=== PATIENT | female | born 1970 | race Caucasian/White ===

== ENCOUNTER 2024-10-08 09:44 | Outpatient (POV) | payer BC, SELFPAY ==
[2024-10-08 10:21] VITALS: BP 123/79; PULSE 72; RESP 16; O2SAT 98; BMI 38.7
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
== END 2024-10-08 23:59 | disposition home or self-care (01) ==
LOC: SC.PAIN 09:47
PROVIDERS: PCP Nurse Practitioner Family; Visit Provider Nurse Practitioner Family
DX: M54.50 Low back pain, unspecified (principal); M46.1 Sacroiliitis, not elsewhere classified; Z73.89 Other problems related to life management difficulty; Z79.899 Other long term (current) drug therapy
CPT/HCPCS: 99202; G0463

== ENCOUNTER 2024-11-27 11:59 | Outpatient (CLI) | payer BC, SELFPAY ==
--- NOTE | 2024-11-27 12:06 | XR_ITS ---
FINAL REPORT CLINICAL HISTORY: LB/HIP PAIN COMPARISON: None FINDINGS: SACROILIAC JOINTS SERIES Three views were obtained. There is no acute fracture or dislocation. The joint spaces appear normal. The visualized bony structures are well aligned. No soft tissue abnormality is seen. IMPRESSION: No acute bony abnormality. Reviewed, Interpreted and Dictated by Elo Cuevas MD Transcribed by Josselyn Castro Authenticated and [facility]
== END 2024-11-27 23:59 | disposition home or self-care (01) ==
LOC: RAD 12:01
PROVIDERS: PCP Nurse Practitioner Family; Visit Provider Nurse Practitioner Family
DX: M25.551 Pain in right hip (principal); M25.552 Pain in left hip
CPT/HCPCS: 72202

== ENCOUNTER 2024-12-19 10:31 | Outpatient (POV) | payer BC, SELFPAY ==
--- NOTE | 2024-12-19 10:48 | EXP.PAIN.SOA ---
[facility] Disclaimer: The information contained in this section may have been updated after the patient was seen, as this information can be updated by other users. Medical History (Updated 10/08/24 @ 10:54 by Lara Caba APRN) Shon's disease History of hypothyroidism History of diverticulosis Hx of osteoarthritis History of fibromyalgia Hx of acute hepatitis Hx of autoimmune disorder History of depression History of anxiety History of posttraumatic stress disorder (PTSD) Right knee meniscal tear Family history of patent foramen ovale Surgical History (Updated 08/22/24 @ 10:27 by Lowell Reynolds MA) History of hand surgery History of hysteroscopy Hx of total hysterectomy Hx of colonoscopy History of tenotomy Hx of cataract surgery Social History (Updated 10/08/24 @ 10:58 by Lara Caba APRN) Smoking Status: Never smoker alcohol intake: current alcohol intake frequency: a few times a month current occupational status: other Travel in the last 8 weeks: None Have you lived/traveled outside US in past 30 days?: No Contact w/someone who lives/traveled outside US past 30 days?: No Exposure to someone with infectious disease in past 14 days?: No Do you have a fever (greater than 100.4 F or 38 C)?: No Have you tested positive for COVID-19: No Exposed to someone with COVID-19 in past 14 days?: No Do you have a sore throat?: No Do you have a cough?: No Do you have any weakness?: No Do you have any diarrhea?: No Are you experiencing any unusual bleeding?: No Do you have any muscle aches/pain?: No Do you have any abdominal pain?: No Are you experiencing loss of taste or smell?: No PM Subjective & Objective Subjective Subjective:: Patient is a pleasant 54-year-old female who presents today for follow-up x-ray imaging of her SI joints. Today she rates her pain a 7 out of 10. She denies any new trauma or injury. Patient states she is still having the same chronic pain throughout her low back and hips that does go into her buttocks and upper thigh area. Patient has had this going on for over 2 years. Patient states the pain is severe and really interferes with her ability perform activities of daily living such as cooking or cleaning or even simple ambulation. Patient states the pain is constant and affects her sleeping. Patient does state that from her last appointment they denied her SI injections however she is not really sure why. Patient states she is continue to try conservative treatment with no additional improvement. Patient does state that she did get her disability approved and that she has not even been able to work due to this worsening pain. She does state that she is still very interested in proceeding forward with the injections. Her Sandeep has been reviewed and is appropriate. Review of Systems: General: No recent weight changes, no fever, no sleep disturbances Respiratory: No cough, no shortness of air, no recurring pulmonary infections Cardiovascular/peripheral vascular: No chest pain, no palpitations, no edema, no shortness of breath Gastrointestinal: No new onset incontinence, normal bowel movements reported Genitourinary: No new onset incontinence Musculoskeletal: Low back pain, bilateral hip pain Psychiatric: [Normal mood/affect] Neurological: [Denies weakness in extremities], [denies balance issues] Pain at rest (0-10 scale): 7 Objective Objective:: Physical Exam: General: Alert and oriented x3, no acute distress, pleasant and cooperative Lungs: Respirations even and unlabored, symmetrical chest expansion Eyes: PERRL Musculoskeletal: Flexion and extension of lumbar [spine] somewhat guarded secondary to pain, [antalgic gait noted] point tenderness along bilateral SIs with positive bilateral Adams's, Mandie's, Gaenslen's, compression and distraction exam Neurological: Speech clear, no gross sensory deficit Has patient had previous pain injection?: No Conservative treatment options previously tried: Home exercise plan Length of treatment: Longer than 12 weeks Meds Home Medications and Allergies Home Medications ?Medication ?Instructions ?Recorded ?Confirmed ?Type aspirin 81 mg tablet,delayed 81 mg PO DAILY 08/22/24 10/08/24 History release (Adult Low Dose Aspirin) atorvastatin 80 mg tablet 80 mg PO DAILY 08/22/24 10/08/24 History buspirone 30 mg tablet 30 mg PO BID 08/22/24 10/08/24 History chlordiazepoxide-clidinium 5 1 cap PO BID 08/22/24 10/08/24 History mg-2.5 mg capsule (Librax (with clidinium)) cholecalciferol (vitamin D3) 25 25 mcg PO DAILY 08/22/24 08/22/24 History mcg (1,000 unit) capsule estradiol 1 mg tablet 1 mg PO DAILY 08/22/24 10/08/24 History ezetimibe 10 mg tablet 10 mg PO DAILY 08/22/24 10/08/24 History fluticasone propionate 50 1 spray intranasal DAILY 08/22/24 10/08/24 History mcg/actuation nasal spray,suspension nitroglycerin 0.4 mg sublingual 0.4 mg sublingual Q5M PRN Chest 08/22/24 10/08/24 History tablet Pain omeprazole 20 mg capsule,delayed 20 mg PO DAILY #90 caps 08/22/24 10/08/24 Rx release oxybutynin chloride 10 mg mg PO 08/22/24 08/22/24 History tablet,extended release 24 hr ropinirole 1 mg tablet 1 mg PO DAILY 08/22/24 10/08/24 History sacrosidase 8,500 unit/mL oral 2 ml PO 6XD #360 mL 08/22/24 08/22/24 Rx solution (Sucraid) thyroid (pork) 60 mg tablet (MEDICAL MALPRACTICE PARALEGAL 120 mg PO DAILY 08/22/24 10/08/24 History Thyroid) ursodiol 500 mg tablet 500 mg PO DAILY 08/22/24 10/08/24 History New Prescriptions to Start Prescriptions: Allergies Allergy/AdvReac Type Severity Reaction Status Date / Time shellfish Allergy Severe Hives Uncoded 08/22/24 10:07 Assessment and Plan *Assessment and plan (1) Bilateral sacroiliitis: Status: Acute Category: Medical Code(s): M46.1 - Sacroiliitis, not elsewhere classified (2) Low back pain: Status: Acute Category: Medical Code(s): M54.50 - Low back pain, unspecified Plan I did review over with the patient regarding her x-ray imaging and we will proceed forward with an MRI of her pelvis/bilateral sacroiliac joints without contrast. Patient again today had extreme point tenderness along her SI joints and a positive bilateral Adams's, Mandie's, Gaenslen's, compression and distraction exam. I did discuss that I do believe she would still benefit from SI injections. Risk and benefits were discussed with patient and she would like to proceed forward with this plan of care. Patient has tried and failed oral medications, heat and ice, topicals, physical therapy and chiropractor therapy as well as continued at home stretching exercise for longer than 12 weeks that was physician guided with no additional relief. Patient will be submitted for bilateral SI injections. I will also order the patient a compounded cream and send in a prescription of baclofen 5 mg 3 times daily with a 2-week supply. Patient will return to clinic for her SI injections Patient has been instructed to contact the clinic with any concerns before the next appointment. Dr. Baker has reviewed this note and agrees with this plan of care. This note was dictated using voice recognition software and make contain errors or omissions. All injections are used with Lidocaine, Bupivacaine and Depo Medrol. Occasionally urine drug screen is needed to verify patient's compliance with our office pain contract. This is ordered based off specific treatments related to chronic pain with the potential to abuse certain medications.
[2024-12-19 15:34] VITALS: BP 127/69; PULSE 77; RESP 14; O2SAT 96; BMI 38.4
== END 2024-12-19 23:59 | disposition home or self-care (01) ==
PROVIDERS: PCP Nurse Practitioner Family; Visit Provider Nurse Practitioner Family
DX: M46.1 Sacroiliitis, not elsewhere classified (principal); M54.50 Low back pain, unspecified; Z73.89 Other problems related to life management difficulty
CPT/HCPCS: 99212; G0463

== ENCOUNTER 2025-01-14 13:26 | Outpatient (POV) | payer BC, SELFPAY ==
--- NOTE | 2025-01-14 13:36 | EXP.PAIN.SOA ---
[facility] Disclaimer: The information contained in this section may have been updated after the patient was seen, as this information can be updated by other users. Medical History Shon's disease History of hypothyroidism History of diverticulosis Hx of osteoarthritis History of fibromyalgia Hx of acute hepatitis Hx of autoimmune disorder History of depression History of anxiety History of posttraumatic stress disorder (PTSD) Right knee meniscal tear Family history of patent foramen ovale Surgical History History of hand surgery History of hysteroscopy Hx of total hysterectomy Hx of colonoscopy History of tenotomy Hx of cataract surgery Social History Smoking Status: Never smoker alcohol intake: current alcohol intake frequency: a few times a month current occupational status: other Travel in the last 8 weeks: None PM Subjective & Objective Subjective Subjective:: Patient is a pleasant 54-year-old female who presents today for insurance denial of bilateral SI injections. Today she rates her pain a 7 out of 10. She denies any new falls or injuries. Patient states she still continues to have chronic pain throughout her low back and bilateral hips and describes it as the severe pain that is constant and is still affecting her ability to sleep as well as cooking and cleaning. At her last visit we did order the patient compounded cream and baclofen 5 mg 3 times daily. She states that the compounded cream was sessile however she has not used it on a consistent basis because it is hard to apply herself. Patient states she did not notice big improvements with the baclofen 5 mg however denies any side effects. Her Sandeep has been reviewed and is appropriate. Review of Systems: General: No recent weight changes, no fever, no sleep disturbances Respiratory: No cough, no shortness of air, no recurring pulmonary infections Cardiovascular/peripheral vascular: No chest pain, no palpitations, no edema, no shortness of breath Gastrointestinal: No new onset incontinence, normal bowel movements reported Genitourinary: No new onset incontinence Musculoskeletal: Low back pain, bilateral hip pain Psychiatric: [Normal mood/affect] Neurological: [Denies weakness in extremities], [denies balance issues] Pain at rest (0-10 scale): 7 Objective Objective:: Physical Exam: General: Alert and oriented x3, no acute distress, pleasant and cooperative Lungs: Respirations even and unlabored, symmetrical chest expansion Eyes: PERRL Musculoskeletal: Flexion and extension of lumbar [spine] somewhat guarded secondary to pain, [antalgic gait noted] point tenderness along bilateral SIs with positive bilateral Adams's, Mandie's, Gaenslen's, compression and distraction exam Neurological: Speech clear, no gross sensory deficit Has patient had previous pain injection?: No Conservative treatment options previously tried: Home exercise plan Length of treatment: Longer than 12 weeks Meds Home Medications and Allergies Home Medications ?Medication ?Instructions ?Recorded ?Confirmed ?Type aspirin 81 mg tablet,delayed 81 mg PO DAILY 08/22/24 12/19/24 History release (Adult Low Dose Aspirin) atorvastatin 80 mg tablet 80 mg PO DAILY 08/22/24 12/19/24 History buspirone 30 mg tablet 30 mg PO BID 08/22/24 12/19/24 History chlordiazepoxide-clidinium 5 1 cap PO BID 08/22/24 12/19/24 History mg-2.5 mg capsule (Librax (with clidinium)) cholecalciferol (vitamin D3) 25 25 mcg PO DAILY 08/22/24 12/19/24 History mcg (1,000 unit) capsule estradiol 1 mg tablet 1 mg PO DAILY 08/22/24 12/19/24 History ezetimibe 10 mg tablet 10 mg PO DAILY 08/22/24 12/19/24 History fluticasone propionate 50 1 spray intranasal DAILY 08/22/24 12/19/24 History mcg/actuation nasal spray,suspension nitroglycerin 0.4 mg sublingual 0.4 mg sublingual Q5M PRN Chest 08/22/24 12/19/24 History tablet Pain omeprazole 20 mg capsule,delayed 20 mg PO DAILY #90 caps 08/22/24 12/19/24 Rx release oxybutynin chloride 10 mg 10 mg PO DIRECTED 08/22/24 12/19/24 History tablet,extended release 24 hr ropinirole 1 mg tablet 1 mg PO DAILY 08/22/24 12/19/24 History sacrosidase 8,500 unit/mL oral 2 ml PO 6XD #360 mL 08/22/24 12/19/24 Rx solution (Sucraid) thyroid (pork) 60 mg tablet (LOGGING TRACTOR OPERATOR 120 mg PO DAILY 08/22/24 12/19/24 History Thyroid) ursodiol 500 mg tablet 500 mg PO DAILY 08/22/24 12/19/24 History baclofen 5 mg tablet 5 mg PO TID #42 tabs 12/19/24 Rx evolocumab 140 mg/mL subcutaneous 140 mg SQ DIRECTED Cholesterol 12/20/24 12/20/24 History syringe (Repatha Syringe) New Prescriptions to Start Prescriptions: Allergies Allergy/AdvReac Type Severity Reaction Status Date / Time shellfish Allergy Severe Hives Uncoded 08/22/24 10:07 Assessment and Plan *Assessment and plan (1) Bilateral sacroiliitis: Status: Acute Category: Medical Code(s): M46.1 - Sacroiliitis, not elsewhere classified (2) Low back pain: Status: Acute Category: Medical Code(s): M54.50 - Low back pain, unspecified Plan Patient is experiencing worsening pain along the low back and bilateral hips. They did have limited range of motion of the lumbar spine along with point tenderness along bilateral SI joints and a positive bilateral Adams's, Mandie's, Gaenslen's, compression and distraction exam. I did discuss with the patient that I do believe they would benefit from bilateral SI injections. Risk and benefits were discussed with the patient and they would like to proceed forward with this option. Patient has tried and failed conservative therapy including physical therapy, chiropractor therapy and continued at home stretching exercise for longer than 12 weeks that was physician guided. Patient was counseled that if she does get significant relief with these injections we will plan on repeating it with the possibility of her being a surgical candidate for SI fusion in future. Patient acknowledges understanding and agrees with plan of care. I will also send in a refill of the baclofen and increase it to 10 mg 3 times daily as needed. Patient will be planned on doing less than 1 mL of solution into the joint spaces. Patient will be scheduled for bilateral SI injections under fluoroscopy. Patient has been instructed to contact the clinic with any concerns before the next appointment. Dr. Baker has reviewed this note and agrees with this plan of care. This note was dictated using voice recognition software and make contain errors or omissions. All injections are used with Lidocaine or Bupivacaine and Depo Medrol. Patient has been instructed to contact the clinic with any concerns before the next appointment. Dr. Baker has reviewed this note and agrees with this plan of care. This note was dictated using voice recognition software and make contain errors or omissions. All injections are used with Lidocaine, Bupivacaine and Depo Medrol. Occasionally urine drug screen is needed to verify patient's compliance with our office pain contract. This is ordered based off specific treatments related to chronic pain with the potential to abuse certain medications.
[2025-01-14 14:11] VITALS: BP 122/77; PULSE 71; RESP 14; O2SAT 95; BMI 38.9
== END 2025-01-14 23:59 | disposition home or self-care (01) ==
PROVIDERS: PCP Nurse Practitioner Family; Visit Provider Nurse Practitioner Family
DX: M46.1 Sacroiliitis, not elsewhere classified (principal); M54.50 Low back pain, unspecified; Z73.89 Other problems related to life management difficulty
CPT/HCPCS: 99212; G0463

== ENCOUNTER 2025-02-05 10:01 | Day surgery (SDC) | payer BC, MEDICARE, SELFPAY ==
[2025-02-05 10:13] VITALS: BP 114/76; PULSE 79; RESP 16; TEMP 36.9; O2SAT 96; BMI 39.3
[2025-02-05 10:31] VITALS: BP 123/64; PULSE 80; RESP 18; O2SAT 95
[2025-02-05] MEDS: LIDOCAINE 1% 5ML PF VIAL 5 ML (10:31)
[2025-02-05] MEDS: BUPIVACAINE 0.25% 10ML INJ 25 MG IJ (10:31)
[2025-02-05] MEDS: methylPREDNISolone ACETATE 80MG/ML VIAL 80 MG (10:31)
[2025-02-05 10:33] VITALS: BP 123/64; PULSE 80; RESP 18; O2SAT 95
[2025-02-05 10:40] VITALS: BP 146/77; PULSE 69; RESP 16; O2SAT 95
--- NOTE | 2025-02-05 10:45 | P.PCN_ITS ---
Procedure Date: 02/05/25 Time: 10:22 Anesthesiologist:: Rm Pena CRNA Complications:: None Pre-procedure Diagnosis:: Bilateral sacroiliitis Post-procedure Diagnosis:: Same Indications for Procedure:: Patient is a very pleasant 54-year-old female comes our clinic today for bilateral sacroiliac joint injection of cortisone and local anesthetic. Patient describes low lumbar back pain off the midline bilaterally. Bilateral posterior hip pain. Difficulty transitioning from sitting to standing. Difficulty with ambulation. She rates her pain 7/10. Procedure Details:: Procedure: Bilateral sacroiliac joint injections under fluoroscopy Informed consent was obtained and the risks and benefits of the procedure were explained to the patient.~ The patient was taken to the procedure room and noninvasive monitors were placed including a noninvasive blood pressure cuff and pulse oximeter.~ The patient was placed prone on the procedure table. Both hips were cleansed using Betadine as a cleansing solution. C-arm fluoroscopy was used to view the right sacroiliac joint.~ The skin and subcutaneous tissues were anesthetized using lidocaine 1.5% and a 25-gauge needle.~ After this, a 22-gauge spinal needle was inserted under fluoroscopic guidance into the inferior aspect of the right sacroiliac joint.~ Omnipaque dye was injected and good spread was seen throughout the joint.~ After this, approximately 5 mL of bupivacaine, 0.25% and Depo-Medrol, 40 mg was incrementally injected into the right sacroiliac joint. We then moved to the left sacroiliac joint.~ The skin and subcutaneous tissues were anesthetized using lidocaine 1.5% and a 25-gauge needle.~ After this, a 22- gauge spinal needle was inserted under fluoroscopic guidance into the inferior aspect of the left sacroiliac joint.~ Omnipaque dye was injected and good spread was seen throughout the joint. After this, approximately 5 mL of bupivacaine, 0.25% and Depo-Medrol, 40 mg was incrementally injected into the left sacroiliac joint.~ The patient tolerated the procedure well with no complications. The patient was observed in the Pain Clinic and then was discharged home neurologically intact. Plan and Disposition:: Patient was discharged without incident.
== END 2025-02-05 10:40 | disposition home or self-care (01) ==
LOC: SC.PAINP 10:04
PROVIDERS: PCP Nurse Practitioner Family; Visit Provider Nurse Anesthetist, Certified Registered
DX: M46.1 Sacroiliitis, not elsewhere classified (principal)
CPT/HCPCS: 27096; G0260; J1010

== ENCOUNTER 2025-02-20 14:15 | Outpatient (CLI) | payer BC, MEDICARE, SELFPAY ==
[2025-02-20 14:49] LABS: Basophils # 0.1 K/mm3 (0-0.2); Basophils % 1.4 % (0.1-2.0); Eosinophils # 0.2 K/mm3 (0.0-0.4); Eosinophils % 1.5 % (0.1-12.0); Hematocrit 41.1 % (37.0-47.0); Hemoglobin 13.1 g/dL (12.2-16.2); Lymphocytes % 20.4 % (10-50); Mean Corpuscular HGB Conc 31.9 g/dL (31.8-35.4); Mean Corpuscular Hemoglobin 28.9 pg (27.0-31.2); Mean Corpuscular Volume 90.5 fl (81-99); Mean Platelet Volume 8.4 fl (7.4-10.4); Monocytes # 0.7 K/mm3 (0.1-1.0); Monocytes % 7.4 % (1.7-9.3); Neutrophils # 6.8 K/mm3 (1.8-7.8); Neutrophils % 68.8 % (37.0-80.0); Nucleated Red Blood Cells # 0 10^3/uL; Nucleated Red Blood Cells % 0 %; Platelet Count 395 K/mm3 (142-424); Red Blood Count 4.54 M/mm3 (4.20-5.40); Red Cell Distribution Width 14.2 % (11.5-17.5); White Blood Count 9.9 K/mm3 (4.8-10.8)
--- NOTE | 2025-02-20 15:08 | EXP.PAIN.SOA ---
[facility] Disclaimer: The information contained in this section may have been updated after the patient was seen, as this information can be updated by other users. Medical History (Updated 02/20/25 @ 15:11 by Lara Caba APRN) Shon's disease History of hypothyroidism History of diverticulosis Hx of osteoarthritis History of fibromyalgia Hx of acute hepatitis Hx of autoimmune disorder History of depression History of anxiety History of posttraumatic stress disorder (PTSD) Right knee meniscal tear Family history of patent foramen ovale Surgical History History of hand surgery History of hysteroscopy Hx of total hysterectomy Hx of colonoscopy History of tenotomy Hx of cataract surgery Social History Smoking Status: Never smoker alcohol intake: current alcohol intake frequency: a few times a month current occupational status: other Travel in the last 8 weeks: None PM Subjective & Objective Subjective Subjective:: Patient is a pleasant 54-year-old female who presents today for follow-up of bilateral SI injections on 02/05/2025. Today she rates her pain a 7 out of 10. Patient does state that she had approximately 75 to 80% improvement lasting 24 hours with those injections. Patient does feel like she is still having pain all across her low back and hips. Patient denies any new falls or injuries. Patient does state certain movements are worse such as walking, laying for too long or lifting. Patient states that it can be very positional. She does state the pain interferes with her ability perform activities of daily living such as cooking and cleaning. Patient continues to try conservative treatments including oral medications, heat and ice, topicals, at home stretching exercise for longer than 12 weeks. Patient has also had physical therapy and chiropractor therapy. Patient is prescribed baclofen 10 mg 3 times daily from our office. Patient states that the increased dosage does seem to help but it does cause increased fatigue so she is only been taking it at night. Patient is also managed with compounded cream that she states she is trying to do more frequently and that she has been having her apply this. Sandeep has been reviewed and is appropriate. Review of Systems: General: No recent weight changes, no fever, no sleep disturbances Respiratory: No cough, no shortness of air, no recurring pulmonary infections Cardiovascular/peripheral vascular: No chest pain, no palpitations, no edema, no shortness of breath Gastrointestinal: No new onset incontinence, normal bowel movements reported Genitourinary: No new onset incontinence Musculoskeletal: Low back pain, hip pain Psychiatric: [Normal mood/affect] Neurological: [Denies weakness in extremities], [denies balance issues] Pain at rest (0-10 scale): 7 Objective Objective:: Physical Exam: General: Alert and oriented x3, no acute distress, pleasant and cooperative Lungs: Respirations even and unlabored, symmetrical chest expansion Eyes: PERRL Musculoskeletal: Flexion and extension of lumbar [spine] somewhat guarded secondary to pain, [antalgic gait noted] positive Kemps test Neurological: Speech clear, no gross sensory deficit Has patient had previous pain injection?: Yes Percent improvement in pain since last injection: 75 to 80% Conservative treatment options previously tried: Home exercise plan Length of treatment: Longer than 12 weeks Meds Home Medications and Allergies Home Medications ?Medication ?Instructions ?Recorded ?Confirmed ?Type aspirin 81 mg tablet,delayed 81 mg PO DAILY 08/22/24 02/05/25 History release (Adult Low Dose Aspirin) atorvastatin 80 mg tablet 80 mg PO DAILY 08/22/24 02/05/25 History buspirone 30 mg tablet 30 mg PO BID 08/22/24 02/05/25 History chlordiazepoxide-clidinium 5 1 cap PO BID 08/22/24 02/05/25 History mg-2.5 mg capsule (Librax (with clidinium)) cholecalciferol (vitamin D3) 25 25 mcg PO DAILY 08/22/24 02/05/25 History mcg (1,000 unit) capsule estradiol 1 mg tablet 1 mg PO DAILY 08/22/24 02/05/25 History ezetimibe 10 mg tablet 10 mg PO DAILY 08/22/24 02/05/25 History fluticasone propionate 50 1 spray intranasal DAILY 08/22/24 02/05/25 History mcg/actuation nasal spray,suspension nitroglycerin 0.4 mg sublingual 0.4 mg sublingual Q5M PRN Chest 08/22/24 02/05/25 History tablet Pain omeprazole 20 mg capsule,delayed 20 mg PO DAILY #90 caps 08/22/24 02/05/25 Rx release oxybutynin chloride 10 mg 10 mg PO DIRECTED 08/22/24 02/05/25 History tablet,extended release 24 hr ropinirole 1 mg tablet 1 mg PO DAILY 08/22/24 02/05/25 History sacrosidase 8,500 unit/mL oral 2 ml PO 6XD #360 mL 08/22/24 02/05/25 Rx solution (Sucraid) thyroid (pork) 60 mg tablet (MEDICAL TECHNOLOGIST 120 mg PO DAILY 08/22/24 02/05/25 History Thyroid) ursodiol 500 mg tablet 500 mg PO DAILY 08/22/24 02/05/25 History baclofen 5 mg tablet 5 mg PO TID #42 tabs 12/19/24 02/05/25 Rx evolocumab 140 mg/mL subcutaneous 140 mg SQ DIRECTED Cholesterol 12/20/24 02/05/25 History syringe (Repatha Syringe) baclofen 10 mg tablet 10 mg PO TID #42 tabs 01/14/25 02/05/25 Rx New Prescriptions to Start Prescriptions: Allergies Allergy/AdvReac Type Severity Reaction Status Date / Time shellfish Allergy Severe Hives Uncoded 08/22/24 10:07 Assessment and Plan *Assessment and plan (1) Low back pain: Status: Acute Category: Medical Code(s): M54.50 - Low back pain, unspecified (2) Bilateral hip pain: Status: Acute Category: Medical Code(s): M25.551 - Pain in right hip; M25.552 - Pain in left hip Plan Patient is experiencing significant pain in her low back that is worse with bending, twisting or lifting. Patient did have limited range of motion of her lumbar spine with a positive Kemps test during today's visit. I did discuss with the patient that I do believe she would benefit from a lumbar medial branch block. Risk and benefits were discussed with the patient and she would like to proceed forward with this plan of care. Patient has tried and failed conservative therapy including oral medications, heat and ice, topicals, at home stretching exercise for longer than 12 weeks. Patient has been experiencing chronic low back pain for longer than 6 months. Patient was counseled that if she does get significant relief with her first lumbar medial branch block that we will plan on repeating it with the plan to progress forward to a lumbar RFA at a later date. Patient agrees with this plan of care. Patient will be scheduled for her first diagnostic lumbar medial branch block bilaterally L4-L5 and L5-S1 under fluoroscopy. Patient was not as tender over her SI joints during today's visit. I will also send in a new muscle relaxer of 500 mg twice daily of methocarbamol. Patient was counseled that this medication typically does not cause increased fatigue however I will order the tablets in case she does still have to break them in half. Patient was counseled to take this on a day that she does not have to go anywhere or drive to see if it does cause any increased fatigue or drowsiness. Patient agrees with this plan of care. I will also order the patient imaging of her low back due to the chronic pain that has been present. I will order x-ray imaging and proceed forward with an MRI without contrast. Patient does have a implanted [employer] medical amplatzer PFO occluder that has to be done with certain amplitudes of frequency. Patient states she has had advanced imaging done at [facility] with no problems related to this device. We will plan on submitting for the advanced imaging at this location due to this fact. Patient has been instructed to contact the clinic with any concerns before the next appointment. Dr. Baker has reviewed this note and agrees with this plan of care. This note was dictated using voice recognition software and make contain errors or omissions. All injections are used with Lidocaine, Bupivacaine and Depo Medrol. Occasionally urine drug screen is needed to verify patient's compliance with our office pain contract. This is ordered based off specific treatments related to chronic pain with the potential to abuse certain medications.
[2025-02-20 15:18] VITALS: BP 115/71; PULSE 84; RESP 18; O2SAT 97; BMI 37.5
[2025-02-20 15:21] LABS: Albumin Level 4.7 g/dl (3.5-5.0); Chloride 102 mmol/L (98-107); Sodium 140 mmol/L (136-145)
[2025-02-20 15:22] LABS: Potassium 4.2 mmoL/L (3.5-5.1)
[2025-02-20 15:24] LABS: Alanine Aminotransferase 33 U/L (12-78); Albumin/Globulin Ratio 1.7 (1.1-1.8); Alkaline Phosphatase 82 U/L (38-126); Anion Gap 12.2 mEq/L (5-15); Aspartate Amino Transferase 34 U/L (14-36); Blood Urea Nitrogen 18 mg/dl (7-17); Carbon Dioxide 30 mmol/L (22.0-30.0); Creatinine Clearance Estimated 78 mL/min (50-200); Estimated Glomerular Filt Rate 47 ml/min (>60); GFR (African American) 56 ML/MIN (>60); Globulin 2.7 g/dL (1.3-3.2); Total Protein,Serum 7.4 g/dl (6.3-8.2)
[2025-02-20 15:25] LABS: Calcium 9.4 mg/dl (8.4-10.2); Glucose 72 mg/dl (74-100)
--- OUTSIDE RECORDS SUMMARY | 2025-02-21 22:23 | XMS_ITS | Continuity of Care Document ---
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 Plan of Treatment Reminders Order Date Submit Date Provider Last Modified By Organization Details Last Modified Time Details Appointments CT SCAN 2024 09:20A M ct_scan Not available Not available Not available RECHECK 2024 11:10A M TRIPP ROB MD Not available Not available Not available Lab None recorded. Referral None recorded. Procedures None recorded. Surgeries None recorded. Imaging None recorded. Medication Orders ipratropi um bromide 21 mcg (0.03 %) nasal spray 2024 [facility] [place], [address], 02/15/2025 11:06:30 Patient TargetsNo targets recorded. Patient Instructions Encounter Date Encounter Id Patient Instructions Last Modified By Organization Details Last Modified Time 02/15/[id number] of sinus - to be performed whenever pt is symptomatic. 2. Prior CT sinus reviewed. 3. Rx - Start ipratropium bromide 21 mcg (0.03 %) nasal spray 2 sprays 2 times a day 4. Follow up with results. selvin Not available 02/15/2025 10:53:28 long history of chronic rhinitis with recurrent acute sinusitis; had allergy testing with Dr. Jeff but never received those results; sinus CT six years ago showed sinus disease; will need updated sinus CT then base further management plans on those results; does not like saline rinse; will start atrovent for now [email or web address] Not available 02/15/2025 11:03:42 Reason for Referral None Reported. Problems No Known Problems Procedures Surgical History Date Name Laterality Status Provider Name and Address Organization Details Recorded Time 02/07/20 19 Review of Med Recs/Compl forms completed [facility] 02/06/2019 13:30:42 11/04/20 16 procedure on foot completed [facility] 02/06/2019 11:20:00 03/16/20 16 Unlisted px hands/fingers completed [facility] 02/06/2019 11:20:29 02/17/20 16 procedure on knee completed [facility] 02/06/2019 11:20:10 07/25/20 14 hysterectomy completed [facility] 02/06/2019 11:19:37 01/15/20 07 hysteroscopy completed [facility] 02/06/2019 11:19:50 Imaging Results None recorded. Procedure Notes None recorded. Medical Equipment None Reported. Allergies Allergen ID Allergen Name Allergen Category Reaction Reaction Severity Criticality Documentation Date Start Date Code Code System Note Provider Name and Address Organization Details Recorded Time [id number] Shellfish (substanc e) food,medi cation Not available Not available Not available 10/08/20162011 87242 9006 SNOMED Comme nt: Creat ed By: Virgilio motaCre ated Date: 012 1:15: 53 PM; Not Available [facility] 6 02:52:01 Medications Name Sig Start Date Stop Date Status Note LastModified by Organization Details LastModified Time cyclobenz aprine 10 mg tablet Bedtime 02/06 completed Duration : 30 days;Ins truction s: take 1/2 to 1 tab 1-2 hrs before bedtime; Frequenc y: hs;Alt Frequenc y: prn;Medi cation Descript ion: cycloben zaprine; Dosage:1 ; Route:or al; refills: 3; Quantity :30 tablet Not Available Not Available Not Available atorvasta tin 40 mg tablet TAKE 1 TABLET BY MOUTH ONCE DAILY 02/15 completed Not Available Not Available Not Available promethaz ine-DM 6.25 mg-15 mg/5 mL oral syrup 02/06 completed Not Available Not Available Not Available atorvasta tin 80 mg tablet TAKE 1 TABLET BY MOUTH ONCE DAILY active Not Available Not Available No t Available prednison e 10 mg tablet 12/21 completed Not Available Not Available Not Available ropinirol e 1 mg tablet TAKE 1 TABLET BY MOUTH AT BEDTIME active Not Available Not Available No t Available triamcino lone acetonide 0.5 % topical cream 12/21 completed Not Available Not Available Not Available oxybutyni n chloride ER 10 mg tablet,ex tended release 24 hr TAKE 1 TABLET BY MOUTH ONCE DAILY active Not Available Not Available No t Available azithromy hilario 250 mg tablet TAKE 2 TABLETS BY MOUTH ON DAY 1, THEN TAKE 1 TABLET DAILY ON DAYS 2-5 active Not Available Not Available No t Available metoprolo l succinate ER 50 mg tablet,ex tended release 24 hr TAKE 1 TABLET BY MOUTH ONCE DAILY 02/15 completed Not Available Not Available Not Available Librax (with clidinium ) 5 mg-2.5 mg capsule Take 1 capsule 3 times a day by oral route. 02/15 completed Not Available Not Available Not Available ondansetr on HCl 4 mg tablet TAKE 1 TO 2 TABLETS BY MOUTH EVERY 8 HOURS NEEDED FOR NAUSEA AND OR VOMITING . active Not Available Not Available No t Available prednison e 20 mg tablet 02/06 completed Not Available Not Available Not Available sertralin e 100 mg tablet TAKE 1 TABLET BY MOUTH ONCE DAILY active Not Available Not Available No t Available prednison e 5 mg tablet 02/06 completed Not Available Not Available Not Available midodrine 5 mg tablet TAKE 1 TABLET BY MOUTH TWICE DAILY active Not Available Not Available No t Available lidocaine HCl 2 % mucosal jelly 02/06 completed Not Available Not Available Not Available sulfameth oxazole 800 mg-trimet hoprim 160 mg tablet 12/21 completed Not Available Not Available Not Available leflunomi de 20 mg tablet 12/21 completed Not Available Not Available Not Available tramadol 50 mg tablet 12/21 completed Not Available Not Available Not Available ketorolac 0.5 % eye drops INSTILL 1 DROP INTO SURGICAL EYE 4 TIMES DAILY FOR 1 WEEK, THEN 1 DROP THREE TIMES DAILY FOR 1 WEEK, THEN 1 DROP TWICE DAILY FOR 1 WEEK, THEN 1 DROP ONCE DAILY FOR 1 WEEK active Not Available Not Available No t Available prednison e 10 mg tablets in a dose pack TAKE BY MOUTH as directed ON PACKAGE 02/15 completed Not Available Not Available Not Available estradiol 1 mg tablet TAKE 1 TABLET BY MOUTH ONCE DAILY active Not Available Not Available No t Available doxycycli ne monohydra te 100 mg capsule 02/06 completed Not Available Not Available Not Available Tylenol 500 mg tablet Daily 02/06 completed Frequenc y: daily;Me dication Descript ion: acetamin ophen; Route:or al; refills: 0 Not Available Not Available Not Available hydrocodo ne 7.5 mg-acetam inophen 325 mg tablet TAKE 1 TABLET BY MOUTH EVERY 6 HOURS NEEDED 02/15 completed Not Available Not Available Not Available cyanocoba marshall (vit B-12) 1,000 mcg/mL injection solution active Not Available Not Available Not Available buspirone 30 mg tablet TAKE 1 TABLET BY MOUTH TWICE DAILY active Not Available Not Available No t Available ranitidin e 150 mg tablet Two times a day 02/06 completed Not Available Not Available Not Available levothyro xine 150 mcg tablet 02/06 completed Medicati on Descript ion: levothyr oxine; Route:or al; refills: 0 Not Available Not Available Not Available ursodiol 250 mg tablet Take 1 tablet 4 times a day by oral route. 12/21 completed Not Available Not Available Not Available BD Luer-Vipin Syringe 3 mL 25 gauge x 1 active Not Available Not Available Not Available nitroglyc selam 0.4 mg sublingua l tablet 12/21 completed Not Available Not Available Not Available omeprazol e 20 mg capsule,d elayed release TAKE 1 CAPSULE BY MOUTH ONCE DAILY active Not Available Not Available No t Available folic acid 1 mg tablet 02/06 completed Not Available Not Available Not Available monteluka st 10 mg tablet TAKE 1 TABLET BY MOUTH ONCE DAILY active Not Available Not Available No t Available ergocalci ferol (vitamin D2) 1,250 mcg (50,000 unit) capsule 12/21 completed Not Available Not Available Not Available albuterol sulfate HFA 90 mcg/actua tion aerosol inhaler active Not Available Not Available Not Available ondansetr on 4 mg disintegr ating tablet 02/06 completed Not Available Not Available Not Available cefdinir 300 mg capsule Take 1 capsule every 12 hours by oral route for 10 days. 12/21 completed Not Available Not Available Not Available fluticaso ne propionat e 50 mcg/actua tion nasal spray,gato pension SPRAY ONE SPRAY in EACH NOSTRIL ONCE DAILY active Not Available Not Available No t Available sertralin e 50 mg tablet TAKE 1 TABLET BY MOUTH ONCE DAILY 02/15 completed Not Available Not Available Not Available ipratropi um bromide 21 mcg (0.03 %) nasal spray [place] 2 sprays twice a day by intranas al route. 2024 active Not Available Not Available Not Avai lable loratadin e 10 mg tablet Daily 02/06 completed Frequenc y: daily;Me dication Descript ion: loratadi ne; Dosage:1 ; Route:or al; refills: 5; Quantity :30 tablet Not Available Not Available Not Available amoxicill in 875 mg-potass ium clavulana te 125 mg tablet 02/06 completed Not Available Not Available Not Available tobramyci n 0.3 %-dexamet hasone 0.1 % eye drops,gato pension 12/21 completed Not Available Not Available Not Available Pneumovax -23 25 mcg/0.5 mL injection syringe 02/06 completed Not Available Not Available Not Available escitalop crescencio 20 mg tablet 12/21 completed Not Available Not Available Not Available ezetimibe 10 mg tablet TAKE 1 TABLET BY MOUTH ONCE DAILY active Not Available Not Available No t Available bupropion HCl XL 150 mg 24 hr tablet, extended release TAKE 1 TABLET BY MOUTH ONCE DAILY 02/15 completed Not Available Not Available Not Available topiramat e 50 mg tablet Two times a day 12/21 completed Not Available Not Available Not Available nitrofura ntoin monohydra te/macroc rystals 100 mg capsule 12/21 completed Not Available Not Available Not Available ursodiol 500 mg tablet TAKE 1 TABLET BY MOUTH ONCE DAILY active Not Available Not Available No t Available pregabali n 225 mg capsule 12/21 completed Not Available Not Available Not Available Lyrica 100 mg capsule 02/06 completed Not Available Not Available Not Available Lyrica 150 mg capsule 02/06 completed Not Available Not Available Not Available Lyrica 200 mg capsule 12/21 completed Not Available Not Available Not Available vitamin E active Not Available Not Kimberly ilable Not Available baclofen active Not Available Not Avai lable Not Available fluticaso ne propionat e 45 mcg-salme terol 21 mcg/actua tion HFA inhaler INHALE 2 PUFFS BY MOUTH TWICE DAILY active Not Available Not Available No t Available Advair HFA 115 mcg-21 mcg/actua tion aerosol inhaler INHALE 2 PUFFS BY MOUTH TWICE DAILY active Not Available Not Available No t Available MoviPrep 100 gram-7.5 gram-2.69 1 gram oral powder packet 02/06 completed Not Available Not Available Not Available Havrix (PF) 1,440 CECILIA unit/mL intramusc ular syringe 02/06 completed Not Available Not Available Not Available levocetir izine 5 mg tablet TAKE 1 TABLET BY MOUTH ONCE DAILY AT BEDTIME active Not Available Not Available No t Available [facility] roid 65 mg tablet 12/21 completed Not Available Not Available Not Available Ocella 3 mg-0.03 mg tablet Daily 02/06 completed Frequenc y: daily;Me dication Descript ion: drospire none-eth inyl estradio l; Route:or al; refills: 0 Not Available Not Available Not Available Savella 50 mg tablet TAKE 1 TABLET BY MOUTH ONCE DAILY FOR 5 DAYS THEN TAKE 1 TABLET EVERY OTHER DAY TO DISCONTI NUATION 02/15 completed Not Available Not Available Not Available COLLAR FELLER Thyroid 60 mg tablet TAKE 2 TABLETS BY MOUTH ONCE DAILY active Not Available Not Available No t Available Versapro Cream Base active Not Available Not Available Not Available Osphena 60 mg tablet TAKE 1 TABLET BY MOUTH ONCE DAILY 02/15 completed Not Available Not Available Not Available Creon 36,000 unit-114, 000 unit-180, 000 unit capsule,d elayed release 02/06 completed Not Available Not Available Not Available Repatha SureClick active Not Available Not Available No t Available Fluarix Quad 1143-6512 (PF) 60 mcg (15 mcg x 4)/0.5 mL IM syringe 02/06 completed Not Available Not Available Not Available Sera 0.1 mg/24 hr transderm al patch APPLY 1 PATCH TOPICALL Y TWICE A WEEK 12/21 completed Not Available Not Available Not Available aspirin 81 mg capsule Take 1 capsule every day by oral route. active Not Available Not Available No t Available Vitals Date Recorded Body height Body mass index (BMI) Body weight Body temperature Heart rate Systolic blood pressure Diastolic blood pressure Provider Name and Address Organization Details Last Updated DateTime 5 157.48 cm 38.5 kg/m2 50907.2 g 97.4 [degF] 75 /min 113 mm[Hg] 69 mm[Hg] Arlin Alvaresjai [facility] 5 10:21:34 Social History Question Answer Notes LastModified by Organizat ion Details LastModified Time Tobacco Smoking Status Former Smoker Carol Ruffin mercedes, [facility] 02/06/2019 11:16:18 What Is Your Level Of Alcohol Consumption? None Information not available 02/06/2019 How Much Tobacco Do You Chew? None [email or web address] Information not available 02/06/2019 What Was The Date Of Your Most Recent Tobacco Screening? 02/06/2019 Information not available 01/01/2020 What Is Your Relationship Status? [email or web address] Information not available 12/21/2021 How Much Tobacco Do You Smoke? No [email or web address] Information not available 02/06/2019 Sex: Female Functional Status None recorded. Mental Status None recorded. Family History Relationship Description Onset Age of this Age Resolved Age Notes LastModified by Organization Details LastModified Time Unspecified Relation Family history of malignant neoplasm Not available 2018 11:15:08 Father Hypertensive disorder [email or web address] Not available 2018 11:15:30 Father Heart disease [email or web address] Not available 2018 11:15:41 Mother Hypertensive disorder [email or web address] Not available 2018 11:15:30 Mother Diabetes mellitus [email or web address] Not available 2018 11:16:02 Brother Hypertensive disorder [email or web address] Not available 2018 11:15:30 Sister Hypertensive disorder [email or web address] Not available 2018 11:15:30 Sister Kidney disease [email or web address] Not available 2018 11:15:52 Medical History Condition Response Kidney Stones Y Hyperthyroidism N Heart Arrhythmia N Emphysema N Esophagus/swallowing troubles N Hypothyroidism Y Depression Y Lung Disease N Glaucoma N Anesthesia Complications N Anxiety Disorder Y Arthritis Y Hearing Loss N Acid Reflux (GERD) Y Cancer N Stroke Y Hoarseness Y Alcohol Overuse/Alcohol Abuse N High Cholesterol Y Liver Disease Y Snoring problems Y Headaches Y Kidney Disease N Allergies/Hayfever Y Heart Problems Y Mental handicap N Ear or Hearing Problems Y Gallbladder Disease N Migraines Y Thyroid Problems Y Goiter N Anemia N Chest Pain Y Immune System Disorder N Stomach trouble Y Heart Attack ([place]) N Ulcers N Diabetes N Rheumatic Fever N Bleeding Disorder N Tuberculosis N AIDS/HIV N Hyperlipidemia N Asthma Y Epilepsy/Seizures N Sleep Apnea Y Sleep Disorder Y Thyroid Disorder Y Hepatitis N Heart Disease N Hypertension Y Gynecological HistoryNo gynecological history recorded. Obstetrics History GPAL:G 0 P 0 0 0 0 Past Encounters Encounter ID Performer Location Encounter Start Date Encounter Closed Date Diagnosis/Indication Diagnosis SNOMED-CT Code Diagnosis ICD10 Code Diagnosis Note [id number] TRIPP ROB MD [facility] [address] [place] [address] 02/15/2025 10:06:41 02/15/2025 11:23:37 Chronic sinusitis 16274493 J32.9 Fibromyalgia 067196919 M 79.7 Temporoman dibular joint disorder 84436250 M26.609 Ear pressu re sensation 275010836 H93.8X9 Chronic re current sinusitis 107299782 J32.9 Recurrent acute sinusitis 912206460 J01.91 Vasomotor rhinitis 27505 03 J30.0 Chronic rhinitis 4120253 6 J31.0 Health Concerns Section Related Observation LastModified by Organization Detai ls LastModified Time None Recorded Concern Status LastModified by Organization Details LastModified Time None Recorded Payers Encounter Date Sequence Insurance Name Policy Number Policy Lopez Covered Member ID Lopez Member ID Guarantor Name 02/15/2025 2 [place] [id number] Nick Kc [id number] Susan Kc 02/15/2025 1 [place] Susan Kc [id number] Susan Kc Notes Date Note Type Note Provider Name and Address Organization Details Recorded Time 02/15/2025 text/html Susan Kc (54F) visits our office for an evaluation of recurrent sinus infection/chronic sinus drainage.Susan complains of several recurrent sinus infections in the past 6 months. She deals with constant nasal congestion and nasal drainage.Susan take levocetirizine and montelukast daily. She says that today, she is stopped up, congested and her ears are running . Her ears feel like they need to pop and are pressured.She notes that she was recently blood allergy tested by an ENT, but was never contacted back regarding her results. TRIPP ROB MD [address] [place] [address], [id number], [facility] 02/15/2025 11:03:59 OBGyn Episode No OBEpisode recorded.
--- OUTSIDE RECORDS SUMMARY | 2025-02-21 22:23 | XMS_ITS | Data Portability ---
Author Organization CHERELLE BINDU D[facility]on [place] [facility] Address [address] [facility] [place] [address] Care Team Providers Care Director Asset Name Role Phone ARCHIE SUNITA Primary Care Provider Assessment Encounter Date Assessment Date Assessment LastModified by Organization Details LastModified Time 12/21/2021 12/21/2021 We reviewed the diagnosis of urolithiasis and options of management. She wishes to proceed with ureteroscopic stone extraction with stent placement. [email or web address] Not available 12/27/2021 16:05:03 12/29/2021 12/29/2021 DATE OF PROCEDUR E: 12/29/2021 PROCEDURE PERFORMED: Cystourethroscopy, right ureteroscopy, laser lithotripsy, basket stone extraction, ureteral stent placement, intraoperative fluoroscopy-less than 1 hour SURGEON: Dea Garduno M.D. ANESTHESIA: General BLOOD LOSS: None PREOPERATIVE INDICATIONS: Right ureteral stone POSTOPERATIVE INDICATIONS: Right ureteral stone DESCRIPTION OF PROCEDURE: Patient was correctly identified in preoperative holding area. Informed consent was obtained. Risks and benefits were reviewed with patient. Patient was taken to procedure room and positioned supine position. Anesthesia induced. Repositioned to lithotomy position. All pressure points padded. Proper timeout procedure completed. Genitourinary area prepped and draped in the normal sterile fashion. Cystoscope advanced through the urethra. Bladder mucosa without evidence of erythema, papillary bladder mass, foreign body. Ureteral orifices in normal anatomic position. Right ureteral orifice was identified and cannulated with wire. The wire was advanced to the renal pelvis utilizing fluoroscopy. Ureteral access sheath was advanced over the wire utilizing fluoroscopy without resistance. The stone was identified in the proximal ureter and moved to the renal pelvis. Laser lithotripsy performed to fragment the stone into multiple small pieces. The larger stone fragments were basket extracted. The smaller stone fragments were felt to be too small to be basket extracted and should pass spontaneously. No stone visualized in the ureter upon removal of the access sheath and ureteroscope. Cystoscopically a ureteral stent was passed over the wire utilizing fluoroscopy. Good coil was seen proximally and distally by fluoroscopy and cystoscopy. The string of the stent was secured to the patient's inner thigh using Tegaderm. Lidocaine gel was instilled for local analgesia. Patient tolerated procedure well. DISPOSITION: Patient was taken to the recovery in stable condition. Discharged home with instructions for outpatient follow-up. [email or web address] Not available 12/29/2021 16:48:20 Plan of Treatment Reminders Order Date Submit Date Provider Last Modified By Organization Details Last Modified Time Details Appointments CT SCAN 2024 09:20A M ct_scan Not available Not available Not available RECHECK 2024 11:10A M TRIPP ROB MD Not available Not available Not available Lab urinalysi s panel, auto 2021 022 [email or web address] [facility], [address] [facility] [address], [place], [address], 12/27/2021 16:05:02 SARS CoV 2 ORF1ab region, QL, NUZHAT+probe , unspecifi ed specimen 2021 022 [id number] [facility] Laboratory, [address] [place], [address], 12/01/2022 03:37:12 Referral None recorded. Procedures None recorded. Surgeries cystoscop y, with ureterosc opy, with lithotrip sy, with insertion of ureteral stent (SURG) 2021 022 [email or web address] [facility], [address] [facility], [place], [address], 01/05/2022 09:35:07 Imaging None recorded. Medication Orders ipratropi um bromide 21 mcg (0.03 %) nasal spray 2024 025 [email or web address] [facility] [address] [place], [address], 02/15/2025 11:06:30 hydrocodo ne 7.5 mg-acetam inophen 325 mg tablet 2021 022 spraria [facility] [address] [place], [address], 02/15/2025 10:44:34 cefdinir 300 mg capsule 2018 019 [email or web address] [facility] [address] [place], [address], 12/21/2021 16:49:07 Patient TargetsNo targets recorded. Patient Instructions Encounter Date Encounter Id Patient Instructions Last Modified By Organization Details Last Modified Time 02/06/2019 [id number] Acute Sinusitis: Care Instructions [email or web address] Not available 02/06/2019 13:50:13 head or face pain: care instructions [email or web address] Not available 02/06/2019 13:50:13 chronic sinusitis: care instructions [email or web address] Not available 02/06/2019 13:50:[address] of the sinuses in the office today. 2. RX - cefdinir. 3. Follow up visit PRN or sooner if concerns arise. jude Not available 02/06/2019 13:31:41 discussed with patient that she has a combination of migraine with subacute chronic sinusitis, but her most significant symptoms are the combination of migraine with fibromyalgia. She has been treated with Omnicef. Surgical intervention is not indicated yet at this time. She will return if her symptoms increase. [email or web address] Not available 02/07/2019 09:10:42 02/15/[id number] of sinus - to [...] 02/15/2025 11:03:42 Reason for Referral None Reported. Results Created Date Observation Date Name Description Value Unit Range Abnormal Flag Note LastModifiedBy Organization Detail LastModifiedTime 12/21/19 22 12/21/2021 urina lysis panel , auto Unknown Analyte Clean Catch Not Available [facility] [address], [place], [address], 12/21/2021 16:53:09 12/21/19 22 12/21/2021 urina lysis panel , auto Unknown Analyte Yellow Not Available [facility] [address], [place], [address], 12/21/2021 16:53:09 12/21/19 22 12/21/2021 urina lysis panel , auto Unknown Analyte Clear Not Available [facility] [address], [place], [address], 12/21/2021 16:53:09 12/21/19 22 12/21/2021 urina lysis panel , auto Unknown Analyte 1.015 Not Available [facility] [address], [place], [address], 12/21/2021 16:53:09 12/21/19 22 12/21/2021 urina lysis panel , auto Unknown Analyte 1.003- 1.035 Not Available [facility] [address], [place], [address], 12/21/2021 16:53:09 12/21/19 22 12/21/2021 urina lysis panel , auto Unknown Analyte 6.0 Not Available [facility] [address], [place], [address], 12/21/2021 16:53:09 12/21/19 22 12/21/2021 urina lysis panel , auto Unknown Analyte 5.0-8. 0 Not Available [facility] [address], [place], [address], 12/21/2021 16:53:09 12/21/19 22 12/21/2021 urina lysis panel , auto Unknown Analyte Negati ve Not Available [facility] [address], [place], [address], 12/21/2021 16:53:09 12/21/19 22 12/21/2021 urina lysis panel , auto Unknown Analyte Negati ve Not Available [facility] [address], [place], [address], 12/21/2021 16:53:09 12/21/19 22 12/21/2021 urina lysis panel , auto Unknown Analyte Negati ve Not Available [facility] [address], [place], [address], 12/21/2021 16:53:09 12/21/19 22 12/21/2021 urina lysis panel , auto Unknown Analyte Negati ve Not Available [facility] [address], [place], [address], 12/21/2021 16:53:09 12/21/19 22 12/21/2021 urina lysis panel , auto Unknown Analyte Negati ve Not Available [facility] [address], [place], [address], 12/21/2021 16:53:09 12/21/19 22 12/21/2021 urina lysis panel , auto Unknown Analyte Negati ve Not Available [facility] [address], [place], [address], 12/21/2021 16:53:09 12/21/19 22 12/21/2021 urina lysis panel , auto Unknown Analyte Normal Not Available [facility] [address], [place], [address], 12/21/2021 16:53:09 12/21/19 22 12/21/2021 urina lysis panel , auto Unknown Analyte Normal Not Available [facility] [address], [place], [address], 12/21/2021 16:53:09 12/21/19 22 12/21/2021 urina lysis panel , auto Unknown Analyte Negati ve Not Available [facility] [address], [place], [address], 12/21/2021 16:53:09 12/21/19 22 12/21/2021 urina lysis panel , auto Unknown Analyte Negati ve Not Available [facility] [address], [place], [address], 12/21/2021 16:53:09 12/21/19 22 12/21/2021 urina lysis panel , auto Unknown Analyte Normal Not Available [facility] [address], [place], [address], 12/21/2021 16:53:09 12/21/19 22 12/21/2021 urina lysis panel , auto Unknown Analyte Normal 1 mg/dl Not Available [facility] [address], [place], [address], 12/21/2021 16:53:09 12/21/19 22 12/21/2021 urina lysis panel , auto Unknown Analyte Negati ve Not Available [facility] [address], [place], [address], 12/21/2021 16:53:09 12/21/19 22 12/21/2021 urina lysis panel , auto Unknown Analyte Negati ve Not Available [facility] [address], [place], [address], 12/21/2021 16:53:09 12/21/19 22 12/21/2021 urina lysis panel , auto Unknown Analyte 50 Paulino/ul Not Available [facility] [address], [place], [address], 12/21/2021 16:53:09 12/21/19 22 12/21/2021 urina lysis panel , auto Unknown Analyte Negati ve Not Available [facility] [address], [place], [address], 12/21/2021 16:53:09 12/25/19 22 12/28/2021 SARS- COV-1 9 RNA, PCR sars cov 2 result NEGATI VE negati ve normal Not Available [facility] [address] [place], [address], 12/28/2021 08:43:24 12/29/19 22 01/02/2022 STONE ANTONIO SIS composition SEE BELOW normal Calci um Oxala te Dihyd rate (Wedd ellit e) 20% Calci um Oxala te Monoh ydrat e (Whew ellit e) 80% See Note 1 Not Available [facility] [address] [place], [address], 01/02/2022 21:11:15 12/29/19 22 01/02/2022 STONE ANTONIO SIS weight 0.010 g normal Note 1 This test was devel oped and its antonio tical perfo rmanc e satnam cteri stics have been deter mined by [facility]. It has not been clear ed or appro santhosh by the FDA. This assay has been valid ated pursu ant to the CLIA regul ation s and is used for clini dipesh purpo ses. TEST PERFO RMED AT: [facility] [address] [place] [address] [place] Not Available [facility] [address] [place] [address], [address], 01/02/2022 21:11:15 12/29/19 22 12/29/2021 urina lysis panel , auto Unknown Analyte Clean Catch Not Available [facility] Surgery Schedule [address] [place], [address], 12/29/2021 15:11:37 12/29/19 22 12/29/2021 urina lysis panel , auto Unknown Analyte Yellow Not Available [facility] Surgery Schedule [address] [place], [address], 12/29/2021 15:11:37 12/29/19 22 12/29/2021 urina lysis panel , auto Unknown Analyte Clear Not Available [facility] Surgery Schedule [address] [place], [address], 12/29/2021 15:11:37 12/29/19 22 12/29/2021 urina lysis panel , auto Unknown Analyte 1.020 Not Available [facility] Surgery Schedule [address] [place], [address], 12/29/2021 15:11:37 12/29/19 22 12/29/2021 urina lysis panel , auto Unknown Analyte 1.003- 1.035 Not Available [facility] Surgery Schedule [address] [place], [address], 12/29/2021 15:11:37 12/29/19 22 12/29/2021 urina lysis panel , auto Unknown Analyte 5.0 Not Available [facility] Surgery Schedule [address] [place], [address], 12/29/2021 15:11:37 12/29/19 22 12/29/2021 urina lysis panel , auto Unknown Analyte 5.0-8. 0 Not Available [facility] Surgery Schedule [address] [place], [address], 12/29/2021 15:11:37 12/29/19 22 12/29/2021 urina lysis panel , auto Unknown Analyte Negati ve Not Available [facility] Surgery Schedule [address] [place], [address], 12/29/2021 15:11:37 12/29/19 22 12/29/2021 urina lysis panel , auto Unknown Analyte Negati ve Not Available [facility] Surgery Schedule [address] [place], [address], 12/29/2021 15:11:37 12/29/19 22 12/29/2021 urina lysis panel , auto Unknown Analyte Negati ve Not Available [facility] Surgery Schedule [address] [place], [address], 12/29/2021 15:11:37 12/29/19 22 12/29/2021 urina lysis panel , auto Unknown Analyte Negati ve Not Available [facility] Surgery Schedule [address] [place], [address], 12/29/2021 15:11:37 12/29/19 22 12/29/2021 urina lysis panel , auto Unknown Analyte Negati ve Not Available [facility] Surgery Schedule [address] [place], [address], 12/29/2021 15:11:37 12/29/19 22 12/29/2021 urina lysis panel , auto Unknown Analyte Negati ve Not Available [facility] Surgery Schedule [address] [place], [address], 12/29/2021 15:11:37 12/29/19 22 12/29/2021 urina lysis panel , auto Unknown Analyte Normal Not Available [facility] Surgery Schedule [address] [place], [address], 12/29/2021 15:11:37 12/29/19 22 12/29/2021 urina lysis panel , auto Unknown Analyte Normal Not Available [facility] Surgery Schedule [address] [place] [address], [address], 12/29/2021 15:11:37 12/29/19 22 12/29/2021 urina lysis panel , auto Unknown Analyte Negati ve Not Available [facility] Surgery Schedule [address] [place], [address], 12/29/2021 15:11:37 12/29/19 22 12/29/2021 urina lysis panel , auto Unknown Analyte Negati ve Not Available [facility] Surgery Schedule [address] [place], [address], 12/29/2021 15:11:37 12/29/19 22 12/29/2021 urina lysis panel , auto Unknown Analyte Normal Not Available [facility] Surgery Schedule [address] [place], [address], 12/29/2021 15:11:37 12/29/19 22 12/29/2021 urina lysis panel , auto Unknown Analyte Normal 1 mg/dl Not Available [facility] Surgery Schedule [address] [place], [address], 12/29/2021 15:11:37 12/29/19 22 12/29/2021 urina lysis panel , auto Unknown Analyte Negati ve Not Available [facility] Surgery Schedule [address] [place], [address], 12/29/2021 15:11:37 12/29/19 22 12/29/2021 urina lysis panel , auto Unknown Analyte Negati ve Not Available [facility] Surgery Schedule [address] [place], [address], 12/29/2021 15:11:37 12/29/19 22 12/29/2021 urina lysis panel , auto Unknown Analyte Trace Not Available [facility] Surgery Schedule [address] [place], [address], 12/29/2021 15:11:37 12/29/19 22 12/29/2021 urina lysis panel , auto Unknown Analyte Negati ve Not Available [facility] Surgery Schedule [address] [place], [address], 12/29/2021 15:11:37 02/07/20 19 02/06/2019 CT, face, w/o contr ast [facility] [address], [address] [place] [address] Patiramiro t Name: BRIAN Sullivan FERNANDO marshall : 970 Yash marshall Orderi ng Provid er: EMERY KIMBALL BARBARA EXAM DATE: 2018 EXAM: CT LTD MERRITT L SINUS HISTOR Y: Facial pain. Chroni c sinusi tis COMPAR DOT: None. TECHNI QUE: 3.0 mm direct merritt l images were obtain ed throug h the parana edwin sinuse s. FINDIN GS: Maxill francisco sinuse s: There is no mucosa l thicke catie in the maxill francisco sinuse s. [place]: The OMCs are patent and horizo ntally orient ed and mildly narrow ed. Ethmoi d sinuse s: Patchy bilate ral ethmoi d sinusi tis sequel a is presen t.. Fronta l sinuse s: Very mild mucosa l thicke catie involv ing the fronta l sinuse s.. Spheno id sinuse s: Patchy inflam matory change in left aspect the spheno id sinus is presen t.. Nasal septum and nasal passag es: The nasal septum is mildly deviat ed to the left 2 mm.. There is modera te mucosa l hypert rophy of the nasal turbin ates. The visual ized brain parenc hyma appear s normal . The orbits are normal in appear ance. No paraph arynge al mass is identi fied. IMPRES JEN: 1. Landa sinusi tis sequel a. The greate st site of involv ement is left maxill francisco sinus Interp reted By: Nick Lim MD Electr onical ly Signed By: Nick Lim MD on 019 1:33 PM [facility] [place] [facility] [address], [place], [address], 02/07/2019 08:51:58 12/21/[address], abdom en + pelvi s, w/ contr ast No observ ation record ed. [email or web address] [facility] (Radiology) [address] , [place], [address], 12/22/2021 10:22:25 Result Notes None recorded. Problems No Known Problems Procedures Surgical History Date Name Laterality Status Provider Name and Address Organization Details Recorded Time 02/07/20 19 Review of Med Recs/Compl forms completed Libertad Orantes [facility] 02/06/2019 13:30:42 11/04/20 16 procedure on foot completed Carol Ruffin [facility] 02/06/2019 11:20:00 03/16/20 16 Unlisted px hands/fingers completed Carol Ruffin [facility] 02/06/2019 11:20:29 02/17/20 16 procedure on knee completed Carolodilon Ruffin [facility] 02/06/2019 11:20:10 07/25/20 14 [facility] 11:19:37 01/15/20 07 [facility] 11:19:50 Imaging Results Imaging Date Name Status LastModified by Organiz ation Details LastModified Time 02/06/2019 CT, face, w/o contrast completed [facility] [place] [address], [place], [address], 02/07/2019 08:51:[address], abdomen + pelvis, w/ contrast completed [address] (Radiology) [address] , [place], [address], 12/22/2021 10:22:25 Procedure Notes None recorded. Medical Equipment None Reported. Allergies Allergen ID Allergen Name Allergen Category Reaction Reaction Severity Criticality Documentation Date Start Date Code Code System Note Provider Name and Address Organization Details Recorded Time 462650 Shellfish (substanc e) food,medi cation Not available Not available Not available 10/08/20162011 89959 9006 SNOMED Comme nt: Creat ed By: Virgilio motaCre ated Date: 012 1:15: 53 PM; Not Available [facility] 6 02:52:01 Medications Name Sig Start Date [...] bromide 21 mcg (0.03 %) nasal spray [place] 2 sprays twice a day by intranas [...] Not Available Not Available No t Available [facility]- roid 65 mg tablet 12/21 completed Not [...] completed Not Available Not Available Not Available [employer] Thyroid 60 mg tablet TAKE 2 TABLETS [...] Not Available No t Available Fluarix Quad (PF) 60 mcg (15 mcg x 4)/0.5 [...] No t Available Vitals Date Recorded Body weight Body mass index (BMI) Body height Body temperature Heart rate Systolic blood pressure Diastolic blood pressure Provider Name and Address Organization Details Last Updated DateTime 9 68692.4 7 g 37.9 kg/m2 160.02 cm 97.9 [degF] 80 /min 121 mm[Hg] 80 mm[Hg] Carol Ruffin [facility] 9 11:31:59 Date Recorded Body height Provider Name an d Address Organization Details Last Updated DateTime 12/21/2021 158.75 cm Hayde Shields [facility] 12/21/2021 16:48:24 Date Recorded Body height Body mass index (BMI) Body weight Body temperature Heart rate Systolic blood pressure Diastolic blood pressure Provider Name and Address Organization Details Last Updated DateTime 5 157.48 cm 38.5 kg/m2 09552.2 g 97.4 [degF] 75 /min 113 mm[Hg] 69 mm[Hg] Arlin Rodriguez [facility] 5 10:21:34 Social History Question Answer Notes LastModified by Organizat ion Details LastModified Time Tobacco Smoking Status Former Smoker Carol Ruffin [facility] 02/06/2019 11:16:18 What Is Your Level Of Alcohol Consumption? None Information not available 02/06/2019 How Much Tobacco Do You Chew? None [email or web address] Information not available 02/06/2019 What Was The Date Of Your Most Recent Tobacco Screening? 02/06/2019 Information not available 01/01/2020 What Is Your Relationship Status? [email or web address] Information not available 12/21/2021 How Much Tobacco Do You Smoke? No [email or web address] Information not available 02/06/2019 Sex: Female Functional Status None recorded. Mental Status None recorded. Family History Relationship Description Onset Age of this Age Resolved Age Notes LastModified by Organization Details LastModified Time Unspecified Relation Family history of malignant neoplasm [email or web address] Not available 2018 11:15:08 Father Hypertensive disorder [email or web address] Not available 2018 11:15:30 Father Heart disease Not available 2018 11:15:41 Mother Hypertensive disorder Not available 2018 11:15:30 Mother Diabetes mellitus [email or web address] Not available 2018 11:16:02 Brother Hypertensive disorder [email or web address] Not available 2018 11:15:30 Sister Hypertensive disorder [email or web address] Not available 2018 11:15:30 Sister Kidney disease [email or web address] Not available 2018 11:15:52 Medical History Condition Response Kidney Stones Y Hyperthyroidism N Heart Arrhythmia N Emphysema N Esophagus/swallowing troubles N Hypothyroidism Y Glaucoma N Lung Disease N Depression Y Anesthesia Complications N Anxiety Disorder Y Arthritis [...] Thyroid Problems Y Goiter N Anemia N Immune System Disorder N Chest Pain Y Stomach trouble Y Heart Attack (IA) N Ulcers N Diabetes N Rheumatic Fever [...] SNOMED-CT Code Diagnosis ICD10 Code Diagnosis Note [id number] [place] [address] 02/14/2017 19:48:06 02/14/2017 19:48:06 [id number] DMITRIY MENA MD [place] [facility] [address] [place] [address] 02/06/2019 10:30:59 02/06/2019 13:59:30 Chronic sinusitis 56207083 J32.9 Pain in face 82257358 R5 1 Migraine 42448898 G43.90 9 Fibromyalgia 952615625 M 79.7 Acute sinusitis 73603055 J01.90 [id number] [facility] [address] [place] [address] 12/21/2021 14:38:11 12/21/2021 15:49:43 Ureteric stone [id number] N20.1 Exposure t o SARS-CoV-2 853655280 Z20.822 Renal colic 1860075 N23 [id number] DEA GARDUNO MD SURGERY SCHEDULE [address] [place] [address] 12/29/2021 14:02:59 12/29/2021 14:03:25 Ureteric stone 53169432 N20.1 [id number] MD CHERELLE REYES [address] [address] [place] [address] 02/15/2025 10:06:41 02/15/2025 11:23:37 Chronic sinusitis 58394277 J32.9 Fibromyalgia 937807516 M 79.7 Temporoman dibular joint disorder 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 M26.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 Ear pressu re sensation 720404548 H93.8X9 Chronic re current sinusitis 105168089 J32.9 Recurrent acute sinusitis 712482668 J01.91 Vasomotor rhinitis 58285 03 J30.0 Chronic rhinitis 4894034 6 J31.0 Health Concerns Section Related Observation LastModified by Organization Detai ls LastModified Time None Recorded Concern Status LastModified by Organization Details LastModified Time None Recorded Advance Directives Directive None Recorded Payers Encounter Date Sequence Insurance Name Policy Number Policy Lopez Covered Member ID Lopez Member ID Guarantor Name 02/06/2019 1 [place] [id number] Susan Kc [id number] Susan Kc 12/21/2021 1 [employer] - OPEN ACCESS - NATIONAL (POS) Nick Kc [id number] Susan Kc 12/29/2021 1 [employer] - OPEN ACCESS - NATIONAL (POS) Nick Kc [id number] Susan Kc 02/15/2025 2 [place] (PPO[place] [id number] Nick Kc [id number] Susan Kc 02/15/2025 1 [place] Susan Kc [id number] Susan Kc Notes Date Note Type Note Provider Name and Address Organization Details Recorded Time 02/06/2019 text/html Susan is a 48-year-old female here today for a sinus consult. She complains of recurrent sinus infections. In the last year she has had five sinus infections. She complains of facial pain when she has a sinus infection. Susan has a history of migraines. She is taking Topamax with relief. She has tried several triptans in the past. Susan does has fibromyalgia. DMITRIY MENA MD [address] [place] [address], [phone], [facility] 02/07/2019 09:13:16 12/21/2021 text/html 51-year-old fema le in the office for my initial evaluation and for discussion of urolithiasis. Pain began 1 week ago, right-sided. No prior episode of urolithiasis. No current pain today. CT abdomen and pelvis from [facility] shows a 6 mm stone near the right UPJ. DEA GARDUNO MD [address] [place] [address], [phone], [facility] 12/27/2021 16:05:47 02/15/2025 text/html Susan Kc (54F) visits our [...] back regarding her results. TRIPP ROB MD [address] [place] [address], [phone], [facility] 02/15/2025 11:03:59 OBGyn Episode No OBEpisode recorded.
== END 2025-02-20 23:59 | disposition home or self-care (01) ==
PROVIDERS: PCP Nurse Practitioner Family; Visit Provider Nurse Practitioner Family
DX: K76.0 Fatty (change of) liver, not elsewhere classified (principal); M54.50 Low back pain, unspecified; M25.551 Pain in right hip; M25.552 Pain in left hip
CPT/HCPCS: 36415; 80053; 85025; 99212; G0463

== ENCOUNTER 2025-03-26 11:10 | Day surgery (SDC) | payer MEDICARE, BC, SELFPAY ==
[2025-03-26 11:26] VITALS: BP 114/69; PULSE 68; RESP 18; O2SAT 95
[2025-03-26 11:30] VITALS: BP 102/74; PULSE 65; RESP 16; TEMP 36.6; O2SAT 98; BMI 38.4
[2025-03-26] MEDS: DEXAMETHASONE 10MG/ML 1ML VIAL 10 MG (11:30)
[2025-03-26] MEDS: LIDOCAINE 1% 5ML PF VIAL 5 ML (11:30)
[2025-03-26] MEDS: BUPIVACAINE 0.25% 10ML INJ 25 MG IJ (11:30)
[2025-03-26 11:36] VITALS: BP 119/70; PULSE 72; RESP 16; O2SAT 96
--- NOTE | 2025-03-26 11:37 | EXP.PAIN.PRO ---
Procedure Date: 03/26/25 Time: 11:30 Anesthesiologist:: Rm Pena CRNA Complications:: None Pre-procedure Diagnosis:: Degenerative disc lumbar spine multilevels. Lumbar radiculopathy. Lumbar spondylosis. Multilevel lumbar facet arthropathy. Post-procedure Diagnosis:: Same. Indications for Procedure:: Patient is a very pleasant 54-year-old female who comes our clinic today for ROUND ONE of lumbar medial branch blocks/facet injections at the bilateral L4-5, L5-S1 level. Patient describes low lumbar back pain as constant, dull, aching. Patient also reports difficulty with lumbar flexion, extension, left and right rotation. She rates her pain 7/10. Procedure Details:: Informed consent was obtained and the risk and benefits of the procedure was explained to the patient. Patient was taken to the procedure room where noninvasive monitors were placed, including noninvasive blood pressure cuff as well as pulse oximeter. The area over the lumbar spine was cleansed using chlorhexidine as a cleansing solution. I anesthetized the skin and subcutaneous tissues with 1% Lidocaine. I placed 22-gauge spinal needles into the facet joint/ medial branches of [L3-L4, L4-L5, and L5-S1] bilaterally. Needle placement was confirmed with fluoroscopy. After confirmation of needle placement, each site was injected with 1 mL of 1% lidocaine and 0.25 % Marcaine and 10 mg of Depo-Medrol. A total of 80 mg of depo medrol was used for bilateral medial branch blocks of [L3-L4, L4-L5, and L5-S1] bilaterally. Patient tolerated the procedure without difficulty. There were no complications. Plan and Disposition:: Patient was discharged without incident.
== END 2025-03-26 11:36 | disposition home or self-care (01) ==
PROVIDERS: PCP Nurse Practitioner Family; Visit Provider Nurse Anesthetist, Certified Registered
DX: M47.816 Spondylosis without myelopathy or radiculopathy, lumbar region (principal); M51.369 Other intervertebral disc degeneration, lumbar region without mention of lumbar back pain or lower extremity pain
CPT/HCPCS: 64493; 64494; J1100

== ENCOUNTER 2025-04-16 14:14 | Outpatient (POV) | payer MEDICARE, BC, SELFPAY ==
--- OUTSIDE RECORDS SUMMARY | 2025-04-16 14:18 | XMS_ITS | Continuity of Care Document ---
Author Organization [facility], MD ENT [address] Address [address] [place] [address] Assessment No assessment recorded. Plan of Treatment Reminders Order Date Submit Date Provider Last Modified By Organization Details Last Modified Time Details Appointments RECHECK 2024 11:20A M TRIPP ROB MD Not available Not available Not available Lab None recorded. Referral None recorded. Procedures None recorded. Surgeries None recorded. Imaging None recorded. Medication Orders azelastin e 137 mcg (0.1 %) nasal spray 2024 025 [email or web address] [facility] [address] [place], [address], 03/08/2025 12:30:01 Patient TargetsNo targets recorded. Patient Instructions Encounter Date Encounter Id Patient Instructions Last Modified By Organization Details Last Modified Time 03/08/2025 [id number] 1. Rx-azelastine nasal spray 1 sprays each nostril BID 2. Continue Atrovent nasal spray, Xyzal, and Pataday eye drops 3. D/c Singulair 4. CT report reviewed in office today. Results discussed with patient. 5. F/u in 2 months [email or web address] Not available 03/08/2025 11:43:52 history of chronic recurrent sinusitis but sinus CT was clear; does have some rhinitis issues and the atrovent has helped; allergy testing several years ago but doesn't have those results; will add azelastine; continue xyzal and can stop singulair; continue pataday; follow up in a couple months and if still having trouble then will consider updated allergy testing [email or web address] Not available 03/08/2025 11:46:57 Reason for Referral None Reported. Results Created Date Observation Date Name Description Value Unit Range Abnormal Flag Note LastModifiedBy Organization Detail LastModifiedTime 03/01/2003/01/2025 CT, charlette hernandez ial, w/o contr ast [place] [facility] [address] [facility] [place] [address] Patiramiro marshall Name: BRIAN marshall : 970 Patiramiro marshall Orderi ng Provid er: TRIPP ROB EXAM DATE: 2024 EXAM: CT IMAGE GUIDED SINUS SCAN WO CONTRA ST HISTOR Y: 54-yea r-old female with chroni c sinusi tis. COMPAR DOT: 019 TECHNI QUE: 1.0 mm axial direct images were obtain ed, and axial, merritt l, and sagitt al recons tructi on images were genera jose from the source images . FINDIN GS: Maxill francisco sinuse s: There is minima l mucosa l thicke catie in the maxill francisco sinuse s. Ostia: The left and right osteom eatal units, and fronta l and spheno id sinus ostia are patent . There is a patent second francisco ostium along the medial wall the right maxill francisco sinus. Ethmoi d sinuse s: The ethmoi d sinuse s are clear. Fronta l sinuse s: The fronta l sinuse s are clear. Spheno id sinuse s: The spheno id sinuse s appear clear. Nasal septum and nasal passag es: The nasal septum is deviat ed to the left anteri xavi. There is severe mucosa l hypert rophy of the nasal turbin ates. The visual ized brain parenc hyma appear s normal . There is bilate ral catara ct surger y. No paraph arynge al mass is identi fied. The visual ized mastoi d air cells appear normal . IMPRES JEN: 1. There is severe mucosa l hypert rophy of the nasal turbin ates and nasal septal deviat ion to the left. 2. There is minima l mucosa l thicke catie in the maxill francisco sinuse s. Interp reted By: TimAdolfo boland MD Electr onical ly Signed By: Miki boland MD on 025 9:59 AM INTERFACE [facility] [address] [place], [address], 03/01/2025 10:04:33 Result Notes None recorded. Problems No Known Problems Procedures Surgical History Date Name Laterality Status Provider Name and Address Organization Details Recorded Time 05/14/20 24 extraction of cataract completed [facility] 03/08/2025 11:14:19 05/14/20 24 closure of patent foramen ovale completed [facility] 03/08/2025 11:14:41 02/07/20 19 Review of Med Recs/Compl forms completed Libertad Orantes [facility] 02/06/2019 13:30:42 11/04/20 16 procedure on foot completed [facility] 02/06/2019 11:20:00 03/16/20 16 Unlisted px hands/fingers completed [facility] 02/06/2019 11:20:29 02/17/20 16 procedure on knee completed [facility] 02/06/2019 11:20:10 07/25/20 14 hysterectomy completed [facility] 02/06/2019 11:19:37 01/15/20 07 hysteroscopy completed [facility] 02/06/2019 11:19:50 adductor tenotomy of hip completed [facility] 03/08/2025 11:15:30 Imaging Results None recorded. Procedure Notes None recorded. Medical Equipment None Reported. Allergies Allergen ID Allergen Name Allergen Category Reaction Reaction Severity Criticality Documentation Date Start Date Code Code System Note Provider Name and Address Organization Details Recorded Time 222868 Shellfish (substanc e) food,medi cation Not available Not available Not available 10/08/20162011 87224 9006 SNOMED Comme nt: Creat ed By: Virgilio vergara;Cre ated Date: 012 1:15: 53 PM; Not Available [email or web address] 6 02:52:01 Medications Name Sig Start Date [...] completed Not Available Not Available Not Available methocarb tiana 500 mg tablet TAKE 1 TABLET BY MOUTH TWICE DAILY active Not Available Not Available No t Available promethaz ine-DM 6.25 mg-15 mg/5 mL [...] completed Not Available Not Available Not Available azelastin e 137 mcg (0.1 %) nasal spray USE 2 SPRAY(S) IN EACH NOSTRIL ONCE DAILY active Not Available Not Available No t Available albuterol sulfate HFA 90 mcg/actua tion [...] bromide 21 mcg (0.03 %) nasal spray USE 2 SPRAY(S) IN EACH NOSTRIL TWICE DAILY active Not Available Not Available No t Available loratadin e 10 mg tablet Daily 02/06 [...] Not Available Not Available No t Available Nature-Th roid 65 mg tablet 12/21 completed Not Available Not Available Not Available Ocella 3 mg-0.03 mg tablet Daily 02/06 completed Frequenc y: daily;Me dication Descript ion: drospire none-eth inyl estradio l; Route:or al; refills: 0 Not Available Not Available Not Available Savella 50 mg tablet TAKE 1 TABLET BY MOUTH ONCE DAILY FOR 5 DAYS THEN TAKE 1 TABLET EVERY OTHER DAY TO DISCPILLOI NUATION 02/15 completed Not Available Not Available Not Available FLIGHT OPERATIONS COORDINATOR Thyroid 60 mg tablet TAKE 2 TABLETS [...] Not Available No t Available Fluarix Quad 8411-6399 (PF) 60 mcg (15 mcg x 4)/0.5 [...] Address Organization Details Last Updated DateTime 5 158.75 cm 37.8 kg/m2 73249.4 g 97.1 [degF] 68 /min 112 mm[Hg] 78 mm[Hg] [facility] 5 11:12:04 Social History Question Answer Notes LastModified by Organizat ion Details LastModified Time Tobacco Smoking Status Former Smoker Carol long [facility] 02/06/2019 11:16:18 What Is Your Level Of Caffeine Consumption? Occasional [email or web address] Information not available 03/08/2025 How Much Tobacco Do You Chew? None [email or web address] Information not available 02/06/2019 What Was The Date Of Your Most Recent Tobacco Screening? 02/06/2019 Information not available 01/01/2020 What Is Your Relationship Status? [email or web address] Information not available 12/21/2021 How Much Tobacco Do You Smoke? No [email or web address] Information not available 02/06/2019 Sex: Female Functional Status Question Answer Note LastModified by Organization D etails LastModified Time What is your level of alcohol consumption? None [email or web address] Information not available 02/06/2019 Mental Status None recorded. Family History Relationship Description Onset Age of this Age Resolved Age Notes LastModified by Organization Details LastModified Time Unspecified Relation Family history of malignant neoplasm [email or web address] Not available 2018 11:15:08 Father Hypertensive disorder Not available 2018 11:15:30 Father Heart disease [email or web address] Not available 2018 11:15:41 Mother Hypertensive disorder [email or web address] Not available 2018 11:15:30 Mother Diabetes mellitus [email or web address] Not available 2018 11:16:02 Brother Hypertensive disorder [email or web address] Not available 2018 11:15:30 Sister Hypertensive disorder [email or web address] Not available 2018 11:15:30 Sister Kidney disease Not available 2018 11:15:52 Medical History Condition Response Kidney Stones Y Hyperthyroidism N Heart Arrhythmia N Emphysema N Esophagus/swallowing troubles N Depression Y Anxiety Disorder Y Arthritis Y Acid Reflux (GERD) Y Cancer N Stroke Y Hoarseness Y Snoring problems Y Headaches Y Kidney Disease N Heart Problems Y Mental handicap N Ear or Hearing Problems Y Gallbladder Disease N Migraines Y Goiter N Ulcers N Rheumatic Fever N Bleeding Disorder N Tuberculosis N AIDS/HIV N Asthma Y Thyroid Disorder Y Sleep Disorder Y Hepatitis N Glaucoma N Hypothyroidism Y Lung Disease N Anesthesia Complications N Hearing Loss N Alcohol Overuse/Alcohol Abuse N High Cholesterol Y Liver Disease Y Allergies/Hayfever Y Thyroid Problems Y Anemia N Immune System Disorder N Chest Pain Y Stomach trouble Y Heart Attack (CT) N Diabetes N Hyperlipidemia N Epilepsy/Seizures N Sleep Apnea Y Heart Disease N Hypertension Y Gynecological HistoryNo gynecological history recorded. Obstetrics History GPAL:G 0 P 0 0 0 0 Past Encounters Encounter ID Performer Location Encounter Start Date Encounter Closed Date Diagnosis/Indication Diagnosis SNOMED-CT Code Diagnosis ICD10 Code Diagnosis Note [id number] MD CHERELLE REYES [facility] [place] [address] 02/15/2025 10:06:41 02/15/2025 11:23:37 Chronic sinusitis 85604507 J32.9 Fibromyalgia 828923936 M 79.7 Temporoman dibular joint disorder 13859233 M26.609 Ear pressu re sensation 118665960 H93.8X9 Chronic re current sinusitis 246090543 J32.9 Recurrent acute sinusitis 500716813 J01.91 Vasomotor rhinitis 85990 03 J30.0 Chronic rhinitis 6169396 6 J31.0 [id number] TRIPP ROB MD MD ENT [address] [place] [address] 03/08/2025 10:54:31 03/08/2025 13:07:02 Chronic recurrent sinusitis 376644050 J32.9 Ear pressu re sensation 536530338 H93.8X9 Chronic sinusitis 794353 00 J32.9 Recurrent acute sinusitis 035788764 J01.91 Fibromyalgia 712847388 M 79.7 Vasomotor rhinitis 81142 03 J30.0 Chronic rhinitis 9432759 6 J31.0 Health Concerns Section Related Observation LastModified by Organization Detai ls LastModified Time None Recorded Concern Status LastModified by Organization Details LastModified Time None Recorded Payers Encounter Date Sequence Insurance Name Policy Number Policy Lopez Covered Member ID Lopez Member ID Guarantor Name 03/08/2025 2 [place] ([place] [id number] Nick Kc [id number] Susan Kc 03/08/2025 1 [place] Susan Kc [id number] Susan Kc Notes Date Note Type Note Provider Name and Address Organization Details Recorded Time 03/08/2025 text/html Susan visits us in office today to follow up on chronic sinusitis and nasal congestion. CT sinus from 03/01/25 showed clear sinuses with bilateral hypertrophy of the inferior turbinates. Pt feels that Atrovent nasal spray has helped her nasal congestion, but she still has mild nasal congestion. Xyzal is taken daily for allergies. Pataday eye drops are used for itchy/watery eyes. TRIPP ROB MD [facility] [place], [address], [facility] 03/08/2025 11:47:08 OBGyn Episode No OBEpisode recorded.
--- OUTSIDE RECORDS SUMMARY | 2025-04-16 14:18 | XMS_ITS | Continuity of Care Document ---
Author Organization [facility], [place] [facility] [address] Address [address] [place] [address] Assessment No assessment recorded. Plan of Treatment Reminders Order Date Submit Date Provider Last Modified By Organization Details Last Modified Time Details Appointments RECHECK 2024 11:20A M TRIPP ROB MD Not available Not available Not available Lab None recorded. Referral None recorded. Procedures None recorded. Surgeries None recorded. Imaging None recorded. Medication Orders ipratropi um bromide 21 mcg (0.03 %) nasal spray 2024 04 025 rvanmetre [facility] [address] [place], [address], 02/15/2025 11:06:30 Patient TargetsNo targets recorded. Patient Instructions Encounter Date Encounter Id Patient Instructions Last Modified By Organization Details Last Modified Time 02/15/[id number] of sinus - to be performed whenever pt is symptomatic. 2. Prior CT sinus reviewed. 3. Rx - Start ipratropium bromide 21 mcg (0.03 %) nasal spray 2 sprays 2 times a day 4. Follow up with results. [email or web address] Not available 02/15/2025 10:53:28 long history of [...] Note LastModifiedBy Organization Detail LastModifiedTime 03/01/2003/01/2025 CT[facility] w[facility]o contr ast [facility] [address] [facility] [place] [address] Yash marshall Name: BRIAN marshall : [id number] Yash marshall Orderi ng [facility] er: TRIPP ROB EXAM DATE: 2024 EXAM: [...] maxill francisco sinuse s. Interp reted By: Miki boland MD Electr onical ly Signed By: Miki bolnad MD on 025 9:59 AM [facility] [address] [place], [address], 03/01/2025 10:04:33 Result Notes None recorded. Problems No Known Problems Procedures Surgical History Date Name Laterality Status Provider Name and Address Organization Details Recorded Time 05/14/20 24 extraction of cataract completed [facility] 03/08/2025 11:14:19 05/14/20 24 closure of patent foramen ovale completed [facility] 03/08/2025 11:14:41 02/07/20 19 Review of Med Recs/Compl forms completed Libertad Orantes [facility] 02/06/2019 13:30:42 11/04/20 16 procedure on foot completed [facility] 02/06/2019 11:20:00 03/16/20 16 Unlisted px hands/fingers completed [facility] 02/06/2019 11:20:29 02/17/20 16 procedure on knee completed [facility] 02/06/2019 11:20:10 07/25/20 14 hysterectomy completed [facility] 02/06/2019 11:19:37 01/15/20 07 hysteroscopy completed [facility] 02/06/2019 11:19:50 adductor tenotomy of hip completed [facility] 03/08/2025 11:15:30 Imaging Results None recorded. Procedure Notes None recorded. Medical Equipment None Reported. Allergies Allergen ID Allergen Name Allergen Category Reaction Reaction Severity Criticality Documentation Date Start Date Code Code System Note Provider Name and Address Organization Details Recorded Time 632479 Shellfish (substanc e) food,medi cation Not available Not available Not available 10/08/20162011 76609 9006 SNOMED Comme nt: Creat ed By: Virgilio vergara;Cre ated Date: 012 1:15: 53 PM; Not Available [facility] 6 02:52:01 Medications Name Sig Start Date [...] Not Available Not Available No t Available [facility] 65 mg tablet 12/21 completed Not [...] completed Not Available Not Available Not Available 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 Occasional [email or web address] Information not available 03/08/2025 How Much Tobacco Do You Chew? None [email or web address] Information not available 02/06/2019 What Was The Date Of Your Most Recent Tobacco Screening? 02/06/2019 Information not available 01/01/2020 What Is Your Relationship Status? [email or web address] Information not available 12/21/2021 How Much Tobacco Do You Smoke? No [email or web address] Information not available 02/06/2019 Sex: Female Functional Status Question Answer Note LastModified by Organization D etails LastModified Time What is your level of alcohol consumption? None [email or web address] Information not available 02/06/2019 Mental Status None recorded. Family History Relationship Description Onset Age of this Age Resolved Age Notes LastModified by Organization Details LastModified Time Unspecified Relation Family history of malignant neoplasm [email or web address] Not available 2018 11:15:08 Father Hypertensive disorder Not available 2018 11:15:30 Father Heart disease [email or web address] Not available 2018 11:15:41 Mother Hypertensive disorder Not available 2018 11:15:30 Mother Diabetes mellitus [email or web address] Not available 2018 11:16:02 Brother Hypertensive disorder [email or web address] Not available 2018 11:15:30 Sister Hypertensive disorder [email or web address] Not available 2018 11:15:30 Sister Kidney disease [email or web address] Not available 2018 11:15:52 Medical History Condition Response Kidney Stones Y Hyperthyroidism N Heart Arrhythmia N Emphysema N Esophagus/swallowing troubles N Depression Y Lung Disease N Hypothyroidism Y Glaucoma N Anesthesia Complications N Anxiety Disorder Y Hearing Loss N Arthritis Y Acid Reflux (GERD) Y Cancer N Stroke Y Hoarseness Y Alcohol Overuse/Alcohol Abuse N High Cholesterol Y Snoring problems Y Liver Disease Y Headaches Y Kidney Disease N Allergies/Hayfever Y Heart Problems Y Mental handicap N Ear or Hearing Problems Y Gallbladder Disease N Migraines Y Thyroid Problems Y Goiter N Anemia N Immune System Disorder N Chest Pain Y Stomach trouble Y Ulcers N Heart Attack (OR) N Diabetes N Rheumatic Fever N Bleeding Disorder N Tuberculosis N AIDS/HIV N Hyperlipidemia N Asthma Y Epilepsy/Seizures N Sleep Apnea Y Thyroid Disorder Y Sleep Disorder Y Hepatitis N Heart Disease N Hypertension Y Gynecological HistoryNo gynecological history recorded. Obstetrics History GPAL:G 0 P 0 0 0 0 Past Encounters Encounter ID Performer Location Encounter Start Date Encounter Closed Date Diagnosis/Indication Diagnosis SNOMED-CT Code Diagnosis ICD10 Code Diagnosis Note [id number] TRIPP ROB MD [place] [facility] [address] [place] [address] 02/15/2025 10:06:41 02/15/2025 11:23:37 Chronic sinusitis 87598321 J32.9 Fibromyalgia 646261112 M 79.7 Temporoman dibular joint disorder 67630747 M26.609 Ear pressu re sensation 473821067 H93.8X9 Chronic re current sinusitis 861955637 J32.9 Recurrent acute sinusitis 593951728 J01.91 Vasomotor rhinitis 70067 03 J30.0 Chronic rhinitis 7838012 6 J31.0 Health Concerns Section Related Observation LastModified by Organization Detai ls LastModified Time None Recorded Concern Status LastModified by Organization Details LastModified Time None Recorded Payers Encounter Date Sequence Insurance Name Policy Number Policy Lopez Covered Member ID Lopez Member ID Guarantor Name 02/15/2025 2 [place] [id number] 1 Nick Eng De [id number] Susan Sullivan De 02/15/2025 1 [place] Susan Kc [id number] Susan Kc Notes Date Note Type [...] back regarding her results. TRIPP ROB MD [facility] [place], [address], [facility] 02/15/2025 11:03:59 OBGyn Episode No OBEpisode recorded.
--- OUTSIDE RECORDS SUMMARY | 2025-04-16 14:18 | XMS_ITS | Data Portability ---
Author Organization [facility] & [place] [facility] Address [address] [place] [address] Care Team Providers Care Crystal Finisher Name Role Phone [facility] Primary Care Yayo luong Assessment No assessment recorded. Plan of Treatment Reminders Order Date Submit Date Provider Last Modified By Organization Details Last Modified Time Details Appointments None record ed. Lab None record ed. Referral None record ed. Procedures None record ed. Surgeries None record ed. Imaging None record ed. Medication Orders None record ed. Patient TargetsNo targets recorded. Patient InstructionsNo instructions recorded. Reason for Referral None Reported. Results Created Date Observation Date Name Description Value Unit Range Abnormal Flag Note LastModifiedBy Organization Detail LastModifiedTime 09/20/20 24 09/19/2024 audio gram No observ ation record ed. BARCODE Not Available 2023 08:53:38 Result Notes None recorded. Problems Name Problem SNOMED Code Status Onset Date Resolution Date Notes Provider Name and Address Organization Details Recorded Time Sensorineural hearing loss 10634884 Active 2023 ADWOA MORATAYA [address] , [place], [address] , [facility] & [place] 4 10:10:40 Abnormal auditory perception 90931465 Active 2023 ADWOA MORATAYA [address] , [place], [address] , [facility] & [place] 4 10:11:45 Problem Notes None recorded. Procedures Surgical History Date Name Laterality Status Provider Name and Address Organization Details Recorded Time 07/05/20 24 completed Dayan Moraes [facility] & [place] 07/25/2024 11:05:11 04/16/20 24 Date of Last Pap Smear completed Dayan Aleisha [place] - [facility] [place] & [place] 07/25/2024 11:05:11 09/28/20 23 Date of Last Colonoscopy completed Dayan Aleisha [place] [facility] [place] [facility] [place] 07/25/2024 11:05:11 11/14/19 23 Colonoscopy completed Dayan Aleisha [place] [facility] [place] [facility] [place] 07/25/2024 11:05:27 11/14/19 22 Hip Surgery completed Dayan Aleisha [place] [facility] [place] [facility] [place] 07/25/2024 11:05:27 11/14/19 19 Cardiovascular Surgery completed Dayan Aleisha [place] [facility] [place] [facility] [place] 07/25/2024 11:05:27 11/14/19 18 Other completed Dayan Aleisha [place] [facility] [place] [facility] [place] 07/25/2024 11:05:27 11/14/19 16 Other completed Dayan Aleisah [place] [facility] [place] [facility] [place] 07/25/2024 11:05:27 11/14/19 14 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 Procedure Notes None recorded. Medical Equipment None Reported. Allergies Allergen ID Allergen Name Allergen Category Reaction Reaction Severity Criticality Documentation Date Start Date Code Code System Note Provider Name and Address Organization Details Recorded Time 453037 cedarwood Not available hives severe Not available 07/25/2024 39762 UNK Dayan Aleisha null, [place] - [facility] [place] [facility] [place] 11:05:01 160655 shellfish derived food,medi cation Not available Not available Not available 07/25/2024 [id number] UNK Dayan Moraes [facility], [place] - [facility] [place] & [place] 4 11:05:01 Medications Name Sig Start Date Stop Date Status Note LastModified by Organization Details LastModified Time atorvastati n 40 mg tablet TAKE 1 TABLET BY MOUTH ONCE DAILY 07/23 completed Not Available Not Available Not Available promethazin e-DM 6.25 mg-15 mg/5 mL oral syrup TAKE 5 ML BY MOUTH THREE TIMES DAILY NEEDED 07/23 completed Not Available Not Available Not Available atorvastati n 80 mg tablet TAKE 1 TABLET BY MOUTH ONCE DAILY active Not Available Not Available No t Available ropinirole 1 mg tablet TAKE 1 TABLET BY MOUTH AT BEDTIME active Not Available Not Available No t Available oxybutynin chloride ER 10 mg tablet,exte nded release 24 hr TAKE 1 TABLET BY MOUTH ONCE DAILY active Not Available Not Available No t Available azithromyci n 250 mg tablet TAKE 2 TABLETS BY MOUTH ON DAY 1, THEN TAKE 1 TABLET DAILY ON DAYS 2-5 active Not Available Not Available No t Available metoprolol succinate ER 50 mg tablet,exte nded release 24 hr TAKE 1 TABLET BY MOUTH ONCE DAILY 07/23 completed Not Available Not Available Not Available Librax (with clidinium) 5 mg-2.5 mg capsule Take 1 capsule 3 times a day by oral route. active Not Available Not Available No t Available midodrine 5 mg tablet TAKE 1 TABLET BY MOUTH TWICE DAILY active Not Available Not Available No t Available ketorolac 0.5 % eye drops INSTILL 1 DROP INTO SURGICAL EYE 4 TIMES DAILY FOR 1 WEEK, THEN 1 DROP THREE TIMES DAILY FOR 1 WEEK, THEN 1 DROP TWICE DAILY FOR 1 WEEK, THEN 1 DROP ONCE DAILY FOR 1 WEEK 07/23 completed Not Available Not Available Not Available prednisone 10 mg tablets in a dose pack TAKE BY MOUTH as directed ON PACKAGE active Not Available Not Available No t Available prednisolon e acetate 1 % eye drops,suspe nsion 07/23 completed Not Available Not Available Not Available estradiol 1 mg tablet TAKE 1 TABLET BY MOUTH ONCE DAILY active Not Available Not Available No t Available Nitrostat 0.[address] by sublingua l route. active Not Available Not Available No t Available doxycycline monohydrate 100 mg capsule TAKE 1 CAPSULE BY MOUTH TWICE DAILY 07/25 completed Not Available Not Available Not Available buspirone 30 mg tablet TAKE 1 TABLET BY MOUTH TWICE DAILY active Not Available Not Available No t Available hyoscyamine 0.125 mg sublingual tablet DISSOLVE 1 TABLET UNDER THE TONGUE EVERY 4 HOURS NEEDED FOR BREAKTHRO UGH BLADDER SPASMS 07/25 completed Not Available Not Available Not Available omeprazole 20 mg capsule,del ayed release TAKE 1 CAPSULE BY MOUTH IN THE MORNING active Not Available Not Available No t Available albuterol sulfate HFA 90 mcg/actuati on aerosol inhaler INHALE 2 PUFFS BY MOUTH EVERY 4 HOURS NEEDED FOR WHEEZING active Not Available Not Available No t Available fluoxetine 20 mg capsule TAKE 1 CAPSULE BY MOUTH ONCE DAILY 07/25 completed Not Available Not Available Not Available fluticasone propionate 50 mcg/actuati on nasal spray,suspe nsion SPRAY ONE SPRAY in EACH NOSTRIL ONCE DAILY active Not Available Not Available No t Available amoxicillin 875 mg-potassiu m clavulanate 125 mg tablet TAKE 1 TABLET BY MOUTH TWICE DAILY WITH FOOD FOR 7 DAYS 07/23 completed Not Available Not Available Not Available buspirone 15 mg tablet TAKE 1 TABLET BY MOUTH TWICE DAILY 07/23 completed Not Available Not Available Not Available Zetia 10 mg tablet Take 1 tablet every day by oral route. active Not Available Not Available No t Available moxifloxaci n 0.5 % eye drops 07/23 completed Not Available Not Available Not Available Sucraid 8,500 unit/mL oral solution active Not Available Not Available Not Available nitrofurant oin monohydrate /macrocryst als 100 mg capsule TAKE 1 CAPSULE BY MOUTH TWICE DAILY 07/25 completed Not Available Not Available Not Available ursodiol 500 mg tablet TAKE 1 TABLET BY MOUTH ONCE DAILY active Not Available Not Available No t Available fluticasone propionate 45 mcg-salmete rol 21 mcg/actuati on HFA inhaler INHALE 2 PUFFS BY MOUTH TWICE DAILY 07/23 completed Not Available Not Available Not Available Savella 12.5 mg tablet TAKE 1 TABLET BY MOUTH TWICE DAILY FOR 2 DAYS 07/25 completed Not Available Not Available Not Available Savella 25 mg tablet TAKE 1 TABLET BY MOUTH TWICE DAILY FOR 4 DAYS 07/25 completed Not Available Not Available Not Available Savella 50 mg tablet TAKE 1 TABLET BY MOUTH ONCE DAILY FOR 5 DAYS THEN TAKE 1 TABLET EVERY OTHER DAY TO DISCONTIN UATION 07/25 completed Not Available Not Available Not Available 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 active Not Available Not Available No t Available Vitals Date Recorded Body height Body mass index (BMI) Body weight Body temperature Provider Name and Address Organization Details Last Updated DateTime 07/25/2024 157.48 cm 40.9 kg/m2 252230.54 g 96.3 [degF] Dayan Moraes [facility] & [place] 07/25/2024 11:04:56 Social History Question Answer Notes LastModified by Organizat ion Details LastModified Time Tobacco Smoking Status Former Smoker Dayan Moraes [facility], [facility] & [place] 07/25/2024 11:05:37 Do You Have An Advance Directive? Yes Information not available 07/25/2024 Are You Blind Or Do You Have Difficulty Seeing? No Information not available 07/25/2024 What Was The Date Of Your Most Recent Tobacco Screening? 07/23/2024 Information not available 07/25/2024 Are You Passively Exposed To Smoke? Yes Information not available 07/25/2024 How Much Tobacco Do You Smoke? No Information not available 07/25/2024 How Many Years Have You Smoked Tobacco? 2 Information not available 07/25/2024 Sex: Female Functional Status Question Answer Note LastModified by Organizat ion Details LastModified Time Do you use any illicit or recreational drugs? No Information not available 07/25/2024 What is your level of alcohol consumption? Occasional Information not available 07/25/2024 Do you or have you ever used smokeless tobacco? Never used smokeless tobacco Information not available 07/25/2024 What is your exercise level? Occasional Information not available 07/25/2024 Mental Status Question Answer Note LastModified by Organization D etails LastModified Time Do you feel stressed (tense, restless, nervous, or anxious, or unable to sleep at night)? [id number] Information not available 07/25/2024 Family History Nothing Reported. Medical History Condition Response Allergies/Hayfever Y Anxiety Disorder Y Autoimmune disease Y Obesity Y Arthritis Y Acid Reflux (GERD) Y Back Problems Y Thyroid Problems Y Stroke Y Kidney or Bladder Problems Y Asthma Y Reflux/GERD Y High Cholesterol Y Liver Disease Y Heart Disease Y Fibromyalgia Y Gynecological History Statement/Question Response Abnormal Pap Y 07/05/2024 Date of Last Colonoscopy 09/28/2023 Date of LMP 07/25/2014 Sexually Active? N Menses Monthly N Date of Last Pap Smear 04/16/2024 Current Control Method Hysterectom y Age at Menarche 15 Obstetrics History GPAL:G 0 P 0 0 0 0 Past Encounters Encounter ID Performer Location Encounter Start Date Encounter Closed Date Diagnosis/Indication Diagnosis SNOMED-CT Code Diagnosis ICD10 Code Diagnosis Note [id number] Ruba Jeff MD [facility] [id number] 07/25/2024 10:50:53 07/25/2024 11:37:43 Allergic rhinitis 49752303 J30.9 Will plan to allergy test her in the office at her [facility]. Will discuss results at that visit. Can see her back sooner if needed. [id number] Ruba Jeff MD [facility] [place] [address] [place] [address] 08/24/2024 09:18:26 08/24/2024 10:01:16 Allergic rhinitis 78760686 J30.9 Wasn't able to allergy skin test patient today due to her recently being on oral steroid. Explained to the patient this could give patient a false negative reaction. Blood was drawn today for RAST testing. Will be in touch with those results when they are received. [id number] ADWOA MORATAYA [facility] [place] [id number] 09/19/2024 09:42:13 09/19/2024 09:54:11 Abnormal auditory perception 17992603 H93.299 Health Concerns Section Related Observation LastModified by Organization Detai ls LastModified Time None Recorded Concern Status LastModified by Organization Details LastModified Time None Recorded Advance Directives Directive Y: Payers Insurance Date Sequence Insurance Name Policy Number Policy Lopez Covered Member ID Lopez Member ID Guarantor Name 09/16/2024 1 [place] [id number] Nick Kc [id number] Susan Kc Notes Date Note Type Note Provider Name and Address Organization Details Recorded Time 07/25/2024 text/html 07/25/24- Patient is here for allergic rhinitis. She has a history of allergies and was seen by Dr Tate where she was on shots. She stopped them over 20 years ago because her insurance stopped paying for them. She has not had any treatment other than trying OTC allergy medications. She has tried Flonase, Cetirizine, Loratidine, Jayshree, Xyzal. States they stop working after awhile. Her symptoms are puffy face, runny nose,sore throat, post nasal drainage, itchy;watery eyes. Ruba Jeff MD [address], [place], [address], [facility] 07/25/2024 13:07:02 09/19/2024 text/html Ms. Kc was se en today for an audiologic evaluation due to concerns about hearing ability per Dr. Ruba Jeff MD. Ms. Kc denies tinnitus, dizziness, drainage, aural fullness/pressure, and excessive noise exposure. Otoscopic inspection was unremarkable bilaterally. Audiometric testing revealed normal hearing thresholds with good word rec scores bilaterally. Type A Tympanogram bilaterally 1-Discussed findings with Ms. Kc. 2-F/u with Dr. Jeff as planned. ADWOA MORATAYA [address], [place], [address], [facility] & [place] 09/19/2024 10:12:01 OBGyn Episode No OBEpisode recorded.
--- OUTSIDE RECORDS SUMMARY | 2025-04-16 14:18 | XMS_ITS | Data Portability ---
Author Organization CHERELLE BINDU [facility] [place] [facility] Address [address] [facility] [address] [place] [address] Assessment Encounter Date Assessment Date Assessment LastModified by Organization Details LastModified Time 12/21/2021 12/21/2021 We reviewed the diagnosis of urolithiasis and options of management. She wishes to proceed with ureteroscopic stone extraction with stent placement. [email or web address] Not available 12/27/2021 16:05:03 12/29/2021 12/29/2021 DATE [...] Discharged home with instructions for outpatient follow-up. [email or web address] Not available 12/29/2021 16:48:20 Plan of Treatment Reminders Order Date Submit Date Provider Last Modified By Organization Details Last Modified Time Details Appointments RECHECK 2024 11:20A M TRIPP ROB MD Not available Not available Not available Lab urinalysi s panel, auto 2021 022 [email or web address] 4 [facility], [address] [place] [address], [facility] [address], [place], [address], 12/27/2021 16:05:02 SARS CoV 2 ORF1ab region, QL, NUZHAT+probe , unspecifi ed specimen 2021 022 [id number] [facility], [address] [place], [address], 12/01/2022 03:37:12 Referral None recorded. Procedures None recorded. Surgeries cystoscop y, with ureterosc opy, with lithotrip sy, with insertion of ureteral stent (SURG) 2021 022 [email or web address] [facility], [address] [facility], [place], [address], 01/05/2022 09:35:07 Imaging None recorded. Medication Orders azelastin e 137 mcg (0.1 %) nasal spray 2024 025 [facility] [address] [place], [address], 03/08/2025 12:30:01 ipratropi um bromide 21 mcg (0.03 %) nasal spray 2024 025 [email or web address] [facility] [address], [address] [place], [address], 02/15/2025 11:06:30 hydrocodo ne 7.5 mg-acetam inophen 325 mg tablet 2021 022 spraria [facility] [address], [address] [place], [address], 02/15/2025 10:44:34 cefdinir 300 mg capsule 2018 019 [email or web address] [facility] [address], [address] [place] [address], [address], 12/21/2021 16:49:07 Patient TargetsNo targets recorded. Patient Instructions Encounter Date Encounter Id Patient Instructions Last Modified By Organization Details Last Modified Time 02/06/2019 [id number] Acute Sinusitis: Care Instructions [email or web address] Not available [...] She will return if her symptoms increase. [email or web address] Not available 02/07/2019 09:10:42 02/15/[id number] of sinus - to [...] for now [email or web address] Not available 02/15/2025 11:03:42 03/08/2025 [id number] 1. Rx-azelastine nasal spray 1 sprays each [...] auto Unknown Analyte Clean Catch Not Available [facility] [address], [place], [address], 12/21/2021 16:53:09 12/21/19 22 12/21/2021 urina lysis panel , auto Unknown Analyte Yellow Not Available [facility] With [address], [place], [address], 12/21/2021 16:53:09 12/21/19 22 12/21/2021 urina lysis panel , auto Unknown Analyte Clear Not Available [facility] [address], [place], [address], 12/21/2021 16:53:09 12/21/19 22 12/21/2021 urina lysis panel , auto Unknown Analyte 1.015 Not Available [facility] [address], [place], [address], 12/21/2021 16:53:09 12/21/19 22 12/21/2021 urina lysis panel , auto Unknown Analyte 1.003- 1.035 Not Available [facility] [address], [place], [address], 12/21/2021 16:53:09 12/21/19 22 12/21/2021 urina lysis panel , auto Unknown Analyte 6.0 Not Available [facility] [address], [place], [address], 12/21/2021 16:53:09 12/21/19 22 12/21/2021 urina lysis panel , auto Unknown Analyte 5.0-8. 0 Not Available [facility] [address], [place], [address], 12/21/2021 16:53:09 12/21/19 22 12/21/2021 urina lysis panel , auto Unknown Analyte Negati ve Not Available [facility] [address], [place], [address], 12/21/2021 16:53:09 12/21/19 22 12/21/2021 urina lysis panel , auto Unknown Analyte Negati ve Not Available [facility] [address], [place], [address], 12/21/2021 16:53:09 12/21/19 22 12/21/2021 urina lysis panel , auto Unknown Analyte Negati ve Not Available [facility] [address], [place], [address], 12/21/2021 16:53:09 12/21/19 22 12/21/2021 urina lysis panel , auto Unknown Analyte Negati ve Not Available [facility] [address], [place], [address], 12/21/2021 16:53:09 12/21/19 22 12/21/2021 urina lysis panel , auto Unknown Analyte Negati ve Not Available [facility] [address], [place], [address], 12/21/2021 16:53:09 12/21/19 22 12/21/2021 urina lysis panel , auto Unknown Analyte Negati ve Not Available [facility] [address], [place], [address], 12/21/2021 16:53:09 12/21/19 22 12/21/2021 urina lysis panel , auto Unknown Analyte Normal Not Available [facility] [address], [place], [address], 12/21/2021 16:53:09 12/21/19 22 12/21/2021 urina lysis panel , auto Unknown Analyte Normal Not Available [facility] [address], [place], [address], 12/21/2021 16:53:09 12/21/19 22 12/21/2021 urina lysis panel , auto Unknown Analyte Negati ve Not Available [facility] [address], [place], [address], 12/21/2021 16:53:09 12/21/19 22 12/21/2021 urina lysis panel , auto Unknown Analyte Negati ve Not Available [facility] [address], [place], [address], 12/21/2021 16:53:09 12/21/19 22 12/21/2021 urina lysis panel , auto Unknown Analyte Normal Not Available [facility] [address], [place], [address], 12/21/2021 16:53:09 12/21/19 22 12/21/2021 urina lysis panel , auto Unknown Analyte Normal 1 mg/dl Not Available [facility] [address], [place], [address], 12/21/2021 16:53:09 12/21/19 22 12/21/2021 urina lysis panel , auto Unknown Analyte Negati ve Not Available [facility] [address], [place], [address], 12/21/2021 16:53:09 12/21/19 22 12/21/2021 urina lysis panel , auto Unknown Analyte Negati ve Not Available [facility] [address], [place], [address], 12/21/2021 16:53:09 12/21/19 22 12/21/2021 urina lysis panel , auto Unknown Analyte 50 Paulino/ul Not Available [facility] [address] [facility] [address], [place], [address], 12/21/2021 16:53:09 12/21/19 22 12/21/2021 urina lysis panel , auto Unknown Analyte Negati ve Not Available [facility] [address] [facility] [address], [place], [address], 12/21/2021 16:53:09 12/25/19 22 12/28/2021 SARS- COV-1 9 RNA, PCR sars cov 2 result NEGATI VE negati ve normal Not Available [facility] [address] [place], [address], 12/28/2021 08:43:24 12/29/19 22 01/02/2022 STONE [place] SIS composition SEE BELOW normal Calci um Oxala te Dihyd rate (Wedd ellit e) 20% Calci um Oxala te Monoh ydrat e (Whew ellit e) 80% See Note 1 Not Available [facility] [address] [place], [address], 01/02/2022 21:11:15 12/29/19 22 01/02/2022 STONE ANTONIO [...] PERFO RMED AT: [facility] [place] [address] [facility] [place] [address] [place] Not Available [facility] [address] [place], [address], 01/02/2022 21:11:15 12/29/19 22 12/29/2021 urina lysis panel , auto Unknown Analyte Clean Catch Not Available [facility] Surgery Schedule [address] [place], [address], 12/29/2021 15:11:37 12/29/19 22 12/29/2021 urina lysis panel , auto Unknown Analyte Yellow Not Available [facility] Surgery Schedule [address] [place], [address], 12/29/2021 15:11:37 12/29/19 22 12/29/2021 urina lysis panel , auto Unknown Analyte Clear Not Available [facility] Surgery Schedule [address] [place], [address], 12/29/2021 15:11:37 12/29/19 22 12/29/2021 urina lysis panel , auto Unknown Analyte 1.020 Not Available [facility] Surgery Schedule [address] [place], [address], 12/29/2021 15:11:37 12/29/19 22 12/29/2021 urina lysis panel , auto Unknown Analyte 1.003- 1.035 Not Available [facility] Surgery Schedule [address] [place], [address], 12/29/2021 15:11:37 12/29/19 22 12/29/2021 urina lysis panel , auto Unknown Analyte 5.0 Not Available [facility] Surgery Schedule [address] [place], [address], 12/29/2021 15:11:37 12/29/19 22 12/29/2021 urina lysis panel , auto Unknown Analyte 5.0-8. 0 Not Available [facility] Surgery Schedule [address] [place], [address], 12/29/2021 15:11:37 12/29/19 22 12/29/2021 urina lysis panel , auto Unknown Analyte Negati ve Not Available [facility] Surgery Schedule [address] [place], [address], 12/29/2021 15:11:37 12/29/19 22 12/29/2021 urina lysis panel , auto Unknown Analyte Negati ve Not Available [facility] Surgery Schedule [address] [place], [address], 12/29/2021 15:11:37 12/29/19 22 12/29/2021 urina lysis panel , auto Unknown Analyte Negati ve Not Available [facility] Surgery Schedule [facility] [place], [address], 12/29/2021 15:11:37 12/29/19 22 12/29/2021 urina lysis panel , auto Unknown Analyte Negati ve Not Available [facility] Surgery Schedule [address] [place], [address], 12/29/2021 15:11:37 12/29/19 22 12/29/2021 urina lysis panel , auto Unknown Analyte Negati ve Not Available [facility] Surgery Schedule [address] [place], [address], 12/29/2021 15:11:37 12/29/19 22 12/29/2021 urina lysis panel , auto Unknown Analyte Negati ve Not Available [facility] Surgery Schedule [address] [place], [address], 12/29/2021 15:11:37 12/29/19 22 12/29/2021 urina lysis panel , auto Unknown Analyte Normal Not Available [facility] Surgery Schedule [address] [place], [address], 12/29/2021 15:11:37 12/29/19 22 12/29/2021 urina lysis panel , auto Unknown Analyte Normal Not Available [facility] Surgery Schedule [address] [place], [address], 12/29/2021 15:11:37 12/29/19 22 12/29/2021 urina lysis panel , auto Unknown Analyte Negati ve Not Available [facility] Surgery Schedule [address] [place], [address], 12/29/2021 15:11:37 12/29/19 22 12/29/2021 urina lysis panel , auto Unknown Analyte Negati ve Not Available [facility] Surgery Schedule [address] [place], [address], 12/29/2021 15:11:37 12/29/19 22 12/29/2021 urina lysis panel , auto Unknown Analyte Normal Not Available [facility] Surgery Schedule [address] [place], [address], 12/29/2021 15:11:37 12/29/19 22 12/29/2021 urina lysis panel , auto Unknown Analyte Normal 1 mg/dl Not Available [facility] Surgery Schedule [address] [place], [address], 12/29/2021 15:11:37 12/29/19 22 12/29/2021 urina lysis panel , auto Unknown Analyte Negati ve Not Available [facility] Surgery Schedule [address] [place], [address], 12/29/2021 15:11:37 12/29/19 22 12/29/2021 urina lysis panel , auto Unknown Analyte Negati ve Not Available [facility] Surgery Schedule [address] [place], [address], 12/29/2021 15:11:37 12/29/19 22 12/29/2021 urina lysis panel , auto Unknown Analyte Trace Not Available [facility] Surgery Schedule [address] [place], [address], 12/29/2021 15:11:37 12/29/19 22 12/29/2021 urina lysis panel , auto Unknown Analyte Negati ve Not Available [facility] Surgery Schedule [address] [facility], [place], [address], 12/29/2021 15:11:37 02/07/20 19 02/06/2019 CT, face, w/o contr ast [place] [facility] [address] [place] [address] Patiramiro marshall Name: BRIAN marshall : 970 Patiramiro t Orderi ng Provid er: EMERY KIMBALL BARBARA [...] Nick Lim MD on 019 1:33 PM gosetinsky [facility]iology N[facility] Ent [address], [place], [address], 02/07/2019 08:51:58 12/21/[address], abdom en + pelvi s, w/ contr ast No observ ation record ed. [email or web address] [facility] (Radiology) [address] , [place], [address], 12/22/2021 10:22:25 03/01/20 25 03/01/2025 CT, maxil lofac ial, w/o contr ast [facility] [address] [place], [place] [address] Patiramiro marshall Name: BRIAN marshall : 9[address] Yash marshall Orderi Provid er: TRIPP ROB EXAM DATE: 2024 [...] boland MD on 025 9:59 AM INTERFACE [facility]iology [facility] [address] [place], [address], 03/01/2025 10:04:33 Result Notes None recorded. Problems No Known Problems Procedures Surgical History Date Name Laterality Status Provider Name and Address Organization Details Recorded Time 05/14/20 24 extraction of cataract completed [facility] 03/08/2025 11:14:19 05/14/20 24 closure of patent foramen ovale completed [facility] 03/08/2025 11:14:41 02/07/20 19 Review of Med Recs/Compl forms completed Libertad Orantes [facility] 02/06/2019 13:30:42 11/04/20 16 procedure on foot completed [facility] 02/06/2019 11:20:00 03/16/20 16 Unlisted px hands/fingers completed [facility] 02/06/2019 11:20:29 02/17/20 16 procedure on knee completed [facility] 02/06/2019 11:20:10 07/25/20 14 hysterectomy completed [facility] 02/06/2019 11:19:37 01/15/20 07 hysteroscopy completed [facility] 02/06/2019 11:19:50 adductor tenotomy of hip completed [facility] 03/08/2025 11:15:30 Imaging Results None recorded. Procedure Notes None recorded. Medical Equipment None Reported. 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 Thyroid 60 mg tablet TAKE 2 TABLETS [...] Not Available No t Available Fluarix Quad 6101-4486 (PF) 60 mcg (15 mcg x 4)/0.5 [...] t Available Vitals Date Recorded Body height Provider Name an d Address Organization Details Last Updated DateTime 12/21/2021 158.75 cm Hayde Shields [facility] 12/21/2021 16:48:24 Date Recorded Body weight Body mass index (BMI) Body height Body temperature Heart rate Systolic blood pressure Diastolic blood pressure Provider Name and Address Organization Details Last Updated DateTime 9 08129.4 7 g 37.9 kg/m2 160.02 cm 97.9 [degF] 80 /min 121 mm[Hg] 80 mm[Hg] Carol Cotaon [facility] 9 11:31:59 Date Recorded Body height Body mass index (BMI) Body weight Body temperature Heart rate Systolic blood pressure Diastolic blood pressure Provider Name and Address Organization Details Last Updated DateTime 5 157.48 cm 38.5 kg/m2 79571.2 g 97.4 [degF] 75 /min 113 mm[Hg] 69 mm[Hg] Arlin Rodriguez [facility] 5 10:21:34 Date Recorded Body height Body mass index (BMI) Body weight Body temperature Heart rate Systolic blood pressure Diastolic blood pressure Provider Name and Address Organization Details Last Updated DateTime 5 158.75 cm 37.8 kg/m2 63666.4 g 97.1 [degF] 68 /min 112 mm[Hg] 78 mm[Hg] Margarita Hodges [facility] 5 11:12:04 Social History Question Answer Notes LastModified by Organizat ion Details LastModified Time Tobacco Smoking Status [facility]/06[facility] 11:16:18 What Is Your Level Of Caffeine Consumption? Occasional [email or web address] Information not available 03/08/2025 How Much Tobacco Do You Chew? None Information not available 02/06/2019 What Was The Date Of Your Most Recent Tobacco Screening? 02/06/2019 Information not available 01/01/2020 What Is Your Relationship Status? [email or web address] Information not available 12/21/2021 How Much Tobacco Do You Smoke? No [email or web address] Information not available 02/06/2019 Sex: Female Functional Status Question Answer Note LastModified by Organization D etails LastModified Time What is your level of alcohol consumption? None [email or web address] Information not available 02/06/2019 Mental Status None recorded. Family History Relationship Description Onset Age of this Age Resolved Age Notes LastModified by Organization Details LastModified Time Unspecified Relation Family history of malignant neoplasm [email or web address] Not available 2018 11:15:08 Father Hypertensive disorder [email or web address] Not available 2018 11:15:30 Father Heart disease [email or web address] Not available 2018 11:15:41 Mother Hypertensive disorder [email or web address] Not available 2018 11:15:30 Mother Diabetes mellitus [email or web address] Not available 2018 11:16:02 Brother Hypertensive disorder [email or web address] Not available 2018 11:15:30 Sister Hypertensive disorder [email or web address] Not available 2018 11:15:30 Sister Kidney disease [email or web address] Not available 2018 11:15:52 Medical History Condition Response Kidney Stones Y Hyperthyroidism N Heart Arrhythmia N Emphysema N Esophagus/swallowing troubles N Depression Y Lung Disease N Glaucoma N Hypothyroidism Y Anesthesia Complications N Anxiety Disorder Y [...] Pain Y Stomach trouble Y Heart Attack (ID) N Ulcers N Diabetes N Rheumatic Fever [...] SNOMED-CT Code Diagnosis ICD10 Code Diagnosis Note [id number] QM_IMPORTS [place] [address] 02/14/2017 19:48:06 02/14/2017 19:48:06 [id number] DMITRIY MENA MD [facility] [address] [place] [address] 02/06/2019 10:30:59 02/06/2019 13:59:30 Chronic sinusitis 02874771 J32.9 Pain in face 67396068 R5 1 Migraine 96660105 G43.90 9 Fibromyalgia 598574586 M 79.7 Acute sinusitis 34081968 J01.90 [id number] DEA GARDUNO MD [facility] [address] [place] [address] 12/21/2021 14:38:11 12/21/2021 15:49:43 Ureteric stone 99809465 N20.1 Exposure t o SARS-CoV-2 830830719 Z20.822 Renal colic 4002579 N23 [id number] DEA GARDUNO MD SURGERY SCHEDULE [address] [place] [address] 12/29/2021 14:02:59 12/29/2021 14:03:25 Ureteric stone 19826434 N20.1 [id number] TRIPP ROB MD [place] [facility] [address] [place] [address] 02/15/2025 10:06:41 02/15/2025 11:23:37 Chronic sinusitis 37628192 J32.9 Fibromyalgia 213333230 M 79.7 Temporoman dibular joint disorder 83128533 M26.609 Ear pressu re sensation 466074192 H93.8X9 Chronic re current sinusitis 540421265 J32.9 Recurrent acute sinusitis 967856676 J01.91 Vasomotor rhinitis 45287 03 J30.0 Chronic rhinitis 6935663 6 J31.0 [id number] TRIPP ROB MD [place] [facility] [address] [facility] [place] [address] 03/08/2025 10:54:31 03/08/2025 13:07:02 Chronic recurrent sinusitis 394588020 J32.9 Ear pressu re sensation 647115224 H93.8X9 Chronic sinusitis 642497 00 J32.9 Recurrent acute sinusitis 480601947 J01.91 Fibromyalgia 871004307 M 79.7 Vasomotor rhinitis 47488 03 J30.0 Chronic rhinitis 0904688 6 J31.0 Health Concerns Section Related Observation LastModified by Organization Detai ls LastModified Time None Recorded Concern Status LastModified by Organization Details LastModified Time None Recorded Advance Directives Directive None Recorded Payers Insurance Date Sequence Insurance Name Policy Number Policy Lopez Covered Member ID Lopez Member ID Guarantor Name 12/29/2021 1 [place] [id number] Susan Kc [id number] Susan Kc 03/13/2025 2 [place] [id number] Nick Kc [id number] Susan Kc 02/15/2025 1 [place] Susan Kc [id number] Susan Kc 02/14/2025 1 [employer] (POS) Nick Kc [id number] Susan Kc Notes Date Note Type Note [...] Susan does has fibromyalgia. DMITRIY MENA MD [address] [place] [address], [address], [facility] 02/07/2019 09:13:16 12/21/2021 text/html 51-year-old fema le in the office for my initial evaluation and for discussion of urolithiasis. Pain began 1 week ago, right-sided. No prior episode of urolithiasis. No current pain today. CT abdomen and pelvis from [facility] shows a 6 mm stone near the right UPJ. DEA GARDUNO MD [address] [place] [address], [address], [facility] 12/27/2021 16:05:47 02/15/2025 text/html Susan Kc [...] back regarding her results. TRIPP ROB MD [address] [place] [address], [address], [facility] 02/15/2025 11:03:59 03/08/2025 text/html Susan visits us in office [...] used for itchy/watery eyes. TRIPP ROB MD [address] [place], [address], [facility] 03/08/2025 11:47:08 OBGyn Episode No OBEpisode recorded.
[2025-04-16 14:38] VITALS: BP 117/67; PULSE 81; RESP 14; O2SAT 95; BMI 38.4
--- NOTE | 2025-04-16 15:37 | EXP.PAIN.SOA ---
[facility] Disclaimer: The information contained in this section may have been updated after the patient was seen, as this information can be updated by other users. Medical History Shon's disease History of hypothyroidism History of diverticulosis Hx of osteoarthritis History of fibromyalgia Hx of acute hepatitis Hx of autoimmune disorder History of depression History of anxiety History of posttraumatic stress disorder (PTSD) Right knee meniscal tear Family history of patent foramen ovale Surgical History History of hand surgery History of hysteroscopy Hx of total hysterectomy Hx of colonoscopy History of tenotomy Hx of cataract surgery Social History Smoking Status: Never smoker alcohol intake: current alcohol intake frequency: a few times a month current occupational status: other Travel in the last 8 weeks?: None PM Subjective & Objective Subjective Subjective:: Patient is a pleasant 54-year-old female who presents today for follow-up of her first lumbar medial branch block bilaterally L4-L5 and L5-S1 on 03/26/2025. Today she rates her pain a 7 out of 10. Patient does state that she had approximately 80% initially going down to about 60% for the first 36 hours following this procedure. Patient states that it was very beneficial and that she was able to do more during that timeframe. Patient does however state that she is back to her baseline. Patient states that she does have limited movements and that it does interfere with her ability perform activities of daily living such as cooking and cleaning. Patient states that she frequently has to stop and take multiple breaks due to the worsening back pain. She does state it continues to be more bothersome with bending, twisting or lifting. Patient is interested in proceeding forward with this option. Patient was prescribed methocarbamol 500 mg from our office in the past however felt like she did not notice significant improvement with this. Her Sandeep has been reviewed and is appropriate. Review of Systems: General: No recent weight changes, no fever, no sleep disturbances Respiratory: No cough, no shortness of air, no recurring pulmonary infections Cardiovascular/peripheral vascular: No chest pain, no palpitations, no edema, no shortness of breath Gastrointestinal: No new onset incontinence, normal bowel movements reported Genitourinary: No new onset incontinence Musculoskeletal: Low back pain Psychiatric: [Normal mood/affect] Neurological: [Denies weakness in extremities], [denies balance issues] Pain at rest (0-10 scale): 7 Objective Objective:: Physical Exam: General: Alert and oriented x3, no acute distress, pleasant and cooperative Lungs: Respirations even and unlabored, symmetrical chest expansion Eyes: PERRL Musculoskeletal: Flexion and extension of lumbar [spine] somewhat guarded secondary to pain, positive Kemps test Neurological: Speech clear, no gross sensory deficit Has patient had previous pain injection?: Yes Percent improvement in pain since last injection: 80% lasting 36 hours Conservative treatment options previously tried: Home exercise plan Length of treatment: Longer than 12 weeks Meds Home Medications and Allergies Home Medications ?Medication ?Instructions ?Recorded ?Confirmed ?Type aspirin 81 mg tablet,delayed 81 mg PO DAILY 08/22/24 04/16/25 History release (Adult Low Dose Aspirin) atorvastatin 80 mg tablet 80 mg PO DAILY 08/22/24 04/16/25 History buspirone 30 mg tablet 30 mg PO BID 08/22/24 04/16/25 History cholecalciferol (vitamin D3) 25 25 mcg PO DAILY 08/22/24 04/16/25 History mcg (1,000 unit) capsule estradiol 1 mg tablet 1 mg PO DAILY 08/22/24 04/16/25 History ezetimibe 10 mg tablet 10 mg PO DAILY 08/22/24 04/16/25 History nitroglycerin 0.4 mg sublingual 0.4 mg sublingual Q5M PRN Chest 08/22/24 04/16/25 History tablet Pain omeprazole 20 mg capsule,delayed 20 mg PO DAILY #90 caps 08/22/24 04/16/25 Rx release oxybutynin chloride 10 mg 10 mg PO DIRECTED 08/22/24 04/16/25 History tablet,extended release 24 hr ropinirole 1 mg tablet 1 mg PO DAILY 08/22/24 04/16/25 History sacrosidase 8,500 unit/mL oral 2 ml PO 6XD #360 mL 08/22/24 04/16/25 Rx solution (Sucraid) thyroid (pork) 60 mg tablet (DRILL PRESS OPERATOR FOR METAL 120 mg PO DAILY 08/22/24 04/16/25 History Thyroid) ursodiol 500 mg tablet 500 mg PO DAILY 08/22/24 04/16/25 History methocarbamol 500 mg tablet 500 mg PO BID #28 tabs 02/20/25 04/16/25 Rx albuterol sulfate 90 mcg/actuation 1 inh inhalation QID 02/27/25 04/16/25 History aerosol inhaler cream base no.39 (bulk) (Versapro 0 applic topical . 02/27/25 04/16/25 History Cream Base topical) fluticasone propionate 45 2 puff inhalation BID 02/27/25 04/16/25 History mcg-salmeterol 21 mcg/actuation HFA inhaler (Advair HFA) levocetirizine 5 mg tablet 5 mg PO DAILY 02/27/25 04/16/25 History midodrine 5 mg tablet 5 mg PO BID 02/27/25 04/16/25 History montelukast 10 mg tablet 10 mg PO DAILY 02/27/25 04/16/25 History sertraline 100 mg tablet 100 mg PO DAILY 02/27/25 04/16/25 History New Prescriptions to Start Prescriptions: Allergies Allergy/AdvReac Type Severity Reaction Status Date / Time shellfish Allergy Severe Hives Uncoded 02/27/25 10:40 Assessment and Plan *Assessment and plan (1) Low back pain: Status: Acute Category: Medical Code(s): M54.50 - Low back pain, unspecified (2) Lumbar facet arthropathy: Status: Acute Category: Medical Code(s): M47.816 - Spondylosis without myelopathy or radiculopathy, lumbar region (3) Degenerative disc disease: Status: Acute Category: Medical Plan Patient did have a successful first lumbar medial branch block and I did review with her regarding repeat lumbar block. Risk and benefits were discussed with patient and she would like to proceed forward with this plan of care. Patient did have limited range of motion of her lumbar spine during today's visit with a positive Kemps test. Patient was counseled if she does get significant improvement with this second lumbar block we will proceed forward with the lumbar RFA at a later date. Patient acknowledges understanding agrees with plan of care. Patient has continued at home stretching and exercise for longer than 12 weeks with no additional changes. Patient has had chronic pain for longer than 6 months in her low back. Patient has failed oral medications, heat and ice, topicals. We will schedule her for the second lumbar medial branch block bilaterally L4-L5 and L5-S1 under fluoroscopy. I will also increase her methocarbamol to 750 mg and send a 1 month supply of this medication. Patient has been instructed to contact the clinic with any concerns before the next appointment. Dr. Baker has reviewed this note and agrees with this plan of care. This note was dictated using voice recognition software and make contain errors or omissions. All injections are used with Lidocaine, Bupivacaine and dexamethasone unless diagnostic in which no steroids are used. Occasionally urine drug screen is needed to verify patient's compliance with our office pain contract. This is ordered based off specific treatments related to chronic pain with the potential to abuse certain medications.
== END 2025-04-16 23:59 | disposition home or self-care (01) ==
PROVIDERS: PCP Nurse Practitioner Family; Visit Provider Nurse Practitioner Family
DX: M47.816 Spondylosis without myelopathy or radiculopathy, lumbar region (principal)
CPT/HCPCS: 99212; G0463

== ENCOUNTER 2025-05-02 10:10 | Outpatient (POV) | payer MEDICARE, BC, SELFPAY ==
--- OUTSIDE RECORDS SUMMARY | 2024-07-12 09:51 | XMS_ITS ---
Author Organization [facility] Address [address] [place] [address] Care Team Providers Care Pharmacy Teacher Name Role Phone Kirby Tirado MD Primary Care Provider Amauri Mendez Unavailable REASON FOR VISIT Follow up Encounters Encounter Location Date Provider Diagnosis [facility] [address] [place] [address] 07/12/2024 Amauri Ashley Plan Of Treatment No Information Progress Notes * Susan KCDOB: 0 (53 yo F)Acc No.[id number]:07/12/2024 Patient: Surekha COOK Susan :1970 A ge:53 Y S ex:Female Address:[address] [place] [id number] * true * Date: Generated for Printi ng/Faxing/eTransmitting on: 0 05/02/2025 10:15 AM EDT
--- OUTSIDE RECORDS SUMMARY | 2024-10-20 17:00 | XMS_ITS ---
Author Organization [facility] Address [address] [place] [address] Care Team Providers Care Exchange Clerk Name Role Phone Kirby Tirado MD Primary Care Provider Amauri Mendez Unavailable [phone] Migration, Provider Unavailable Unavailable Allergies Allergen (clinical drug ingredient) Drug/Non Drug Allergy documented on EMR Reaction Allergy Type Onset Date Status Shellfish SHELLFISH (uncoded) Unknown Allergy [facility] Encounter Medications Medication SIG (Take, Route, Frequency, Duration) Notes Start Date End Date Status rOPINIRole HCl 1 MG 1 tab(s) orally at bedtime for 90 days Active Sucraid 8500 INTL UNITS/ML for 30 DAYS *Please review and pick correct strength-formulat ion from Bloxran options. If intended option is not shown, [...] orally at bedtime for 30 day(s) Active CLINICAL RESEARCH SPEC Thyroid 60 MG TAKE 2 & 1/2 (TWO & ONE-HALF) TABLETS BY MOUTH ONCE DAILY for 90 Days Active Advair HFA 115-21 MCG/ACT for 30 Days Active Vitamin B 12 *Please review and pick correct strength-formulat ion from Frenzoo options. If intended option is not shown, [...] review and pick correct strength-formulat ion from Frenzoo options. If intended option is not shown, discontinue and re-order from Quick Search* Active Turmeric 500 MG 1 cap(s) orally once a day Active Sera 0.1 MG/24 HOURS TWICE WEEKLY APPLY 1 PATCH TOPICALLY TWICE A WEEK for 84 DAYS *Please review and pick correct strength-formulat ion from Frenzoo options. If intended option is not shown, [...] Not-Taking Encounters Encounter Location Date Provider Diagnosis [facility] [address] [place] [address] 10/20/2024 Provider Migration Plan Of Treatment No Information Progress Notes * Susan KCDOB: 0 (54 yo F)Acc No.[id number]:10/20/2024 Patient: Susan DAIGLE Provider: Yayo luong Migration :1970 A ge:53 Y S ex:Female Date:10/20/2024 Address:[place], [id number] Pcp:Kirby Tirado MD Subjective: * Chief Complaints: * 1 . [facility] En[facility]. * Medical History: * [...] *Please review and pick correct strength-formulation from Bloxrspan options. If intended option is not shown, discontinue and re-order from Quick Search*, Taking Vitamin B 12 , Notes to Pharmacist: *Please review and pick correct strength-formulation from [facility] options. If intended option is not shown, discontinue and re-order from Quick Search*, Taking Advair HFA 115-21 MCG/ACT Aerosol , Taking Osphena 60 MG Tablet TAKE 1 TABLET BY MOUTH ONCE DAILY , Taking chlordiazePOXIDE-Clidinium 5-2.5 MG Capsule , Taking Nitroglycerin 0.4 MG Tablet Sublingual , Taking CLINICAL RESEARCH SPEC Thyroid 60 MG Tablet TAKE 2 & [...] *Please review and pick correct strength-formulation from Frenzoo options. If intended option is not shown, [...] *Please review and pick correct strength-formulation from Frenzoo options. If intended option is not shown, discontinue and re-order from Quick Search* * Allergies: S HELLFISH. Objective: * Vitals: Assessment: Plan: * Treatment: * Billing Information: * Visit Code: * Procedure Codes: * Electronic signature of Prov kishorer Migration on 05/02/2025 at 10:16 AM EDT Sign off status: Pending * Provider: Yayo luong Migration Date: 12/21/2023 Generated for Matteo pino/Charles/Airamitting on: 0 05/02/2025 10:16 AM EDT
--- OUTSIDE RECORDS SUMMARY | 2025-04-29 06:00 | XMS_ITS ---
Author Organization [facility] Address [address] [place] [address] Care Team Providers Care Clinical Documentation Consultant Name Role Phone Libertad Cary Unavailable [phone] Ivy Susan Unavailable [phone] Allergies Allergen (clinical drug ingredient) Drug/Non Drug Allergy documented on EMR Reaction Allergy Type Onset Date Status Shellfish (FN) SHELLFISH (uncoded) Unspecified Allergy Active REASON FOR VISIT Annual Medications Medication SIG (Take, Route, Frequency, Duration) Notes Start Date End Date Status Librax Unknown LORazepam Unknown Estradiol 1 MG Tablet 1 tablet Orally On ce a day; Duration: 90 days Unknown Levocetirizine-Loratadine Unknown busPIRone HCl Unknow n Xyzal Unknown Advair HFA Unknown Albuterol Unknown Ativan Unknown Dave Aspirin Unknow n Vitamin D Unknown Vitamin E Unknown Ursodiol Unknown Vitamin B12 Unknown Thyroid Unknown Nitroglycerin Unknow n oxyBUTYnin Unknown rOPINIRole HCl ER Un known Omeprazole Unknown Sucraid Unknown Metoprolol Succinate ER Unknown Social History Tobacco Use: Social History Observation Description Date Details (start date - stop date) Former Smoker NA - NA Sex Assigned At : Social History Observation Description Sex Assigned At Female Social History Drugs/Alcohol: Social Info Question Answer Notes Drugs Have you used drugs other than those for medical reasons in the past 12 months? No Alcohol Screen Did you have a drink containing alcohol in the past year? Yes How often did you have a drink containing alcohol in the past year? Monthly or less (1 point) Points 1 Interpretation Negative Tobacco Use: Social Info Question Answer Notes Tobacco Use/Smoking Are you a former smoker Additional Findings: Tobacco Non-User Current no n-smoker Encounters Encounter Location Date Provider Diagnosis [facility] [address] [facility] [address] [place] [address] 04/29/2025 Susan Haynes Plan Of Treatment Next Appt Details Provider Name:Susan Hayens , 06/05/2025 11:15:00 AM, [address] [facility], [facility] [address], [place], [address], Progress Notes * Susan KC FDOB: [birth year] (54 yo F)Acc No.[id number]:04/29/2025 Progress Note Patient: Susan Rosen Provider: Vic Haynes MD :1970 A ge:54 Y S ex:Female Date:04/29/2025 Address:[address] [place] [address] Subjective: * Chief Complaints: * A nnual * Medical History: Fibrocystic breasts Thyroid disease Asthma Acid reflux Ibs migraines Hypothroidism migraines Diverticulosis Osteoarthritis Fibromyalgia Anxiety/depression PTSD Stroke GERD Hypertension Liver disease Thyroid disease Lung problems * Economic Specialist History: M ammogram History: D ate of last mammogram: 0 -2023 R esults/Density B IRADS 1 M enstrual History: L MP: H ysterectomy D uration: 7 L ast Mammogram Date (Historical) 0 08/04/2020. L ast Pap Smear/HPV Date (Historical) 0 01/03/2018 negative. * OB History: G P : 0 * Surgical History: Hysterectomy with BSO 2013 hysteroscopy, hand sx, colonoscopy L foot sx 11/04/16 PFO repair 05/2019 Right Knee * Family History: breast cancer--maternal aunt. * Social History: T obacco Use: T obacco Use/Smoking A re you a f ormer smoker A dditional Findings: Tobacco Non-User C urrent non-smoker D rugs/Alcohol: D rugs H ave you used drugs other than those for medical reasons in the past 12 months? N o Alcohol Screen D id you have a drink containing alcohol in the past year? Y es H ow often did you have a drink containing alcohol in the past year? M onthly or less (1 point) P oints 1 I nterpretation N egative * Medications: U nknownAdvair HFA Albuterol Ativan Dave Aspirin busPIRone HCl Estradiol 1 MG Tablet 1 tablet Orally Once a day Levocetirizine-Loratadine Librax LORazepam Metoprolol Succinate ER Nitroglycerin Omeprazole oxyBUTYnin rOPINIRole HCl ER Sucraid Thyroid Ursodiol Vitamin B12 Vitamin D Vitamin E Xyzal Unknown Advair HFA Unknown Albuterol Unknown Ativan Unknown Dave Aspirin Unknown busPIRone HCl Unknown Estradiol 1 MG Tablet 1 tablet Orally Once a day Unknown Levocetirizine-Loratadine Unknown Librax Unknown LORazepam Unknown Metoprolol Succinate ER Unknown Nitroglycerin Unknown Omeprazole Unknown oxyBUTYnin Unknown rOPINIRole HCl ER Unknown Sucraid Unknown Thyroid Unknown Ursodiol Unknown Vitamin B12 Unknown Vitamin D Unknown Vitamin E Unknown Xyzal * Allergies: S HELLFISH: Unspecified - Allergy - Onset Date 2013-05-31 * Electronic signature of Rebecca Haynes MD on 05/02/2025 at 10:16 AM EDT Sign off status: Pending Visit Status: R /S (Rescheduled) * Provider: Vic Haynes MD Date: 0 04/29/2025 Generated for Matteo pino/Charles/Maria Ines on: 0 05/02/2025 10:16 AM EDT
--- OUTSIDE RECORDS SUMMARY | 2025-05-02 10:15 | XMS_ITS | Continuity of Care Document ---
Author Organization [facility] [place] [address] Address [address] [place] [address] Assessment No assessment recorded. Plan of Treatment [...] (0.1 %) nasal spray 2024 025 [email or web address] [facility] [address] [place], [address], 03/08/2025 12:30:01 Patient TargetsNo targets recorded. Patient Instructions Encounter Date Encounter Id Patient Instructions Last Modified By Organization Details Last Modified Time 03/08/2025 [id number] 1. Rx-azelastine nasal spray 1 sprays each [...] w/o contr ast [place] [facility] [address] [facility] [place] [address] Patiramiro marshall Name: BRIAN marshall : [birth year] [...] boland MD on 025 9:59 AM INTERFACE [facility] Radiology [facility] [address] [place], [address], 03/01/2025 10:04:33 Result Notes None recorded. Problems No Known Problems Procedures Surgical History Date Name Laterality Status Provider Name and Address Organization Details Recorded Time 05/14/20 24 extraction of cataract completed [facility] 03/08/2025 11:14:19 05/14/20 24 closure of patent foramen ovale completed [facility] 03/08/2025 11:14:41 02/07/20 19 Review of Med Recs/Compl forms completed Libertad [facility] 02/06/2019 13:30:42 11/04/20 16 procedure on foot completed [facility] 02/06/2019 11:20:00 03/16/20 16 Unlisted px hands/fingers completed [facility] 02/06/2019 11:20:29 02/17/20 16 procedure on knee completed [facility] 02/06/2019 11:20:10 07/25/20 14 hysterectomy completed [facility] 02/06/2019 11:19:37 01/15/20 07 hysteroscopy completed [facility] 02/06/2019 11:19:50 adductor tenotomy of hip completed [facility] 03/08/2025 11:15:30 Imaging Results None recorded. Procedure Notes None recorded. Medical Equipment None Reported. Allergies Allergen ID Allergen Name Allergen Category Reaction Reaction Severity Criticality Documentation Date Start Date Code Code System Note Provider Name and Address Organization Details Recorded Time 901187 Shellfish (substanc e) food,medi cation Not available Not available Not available 10/08/20162011 52569 9006 SNOMED Comme nt: Creat ed By: Virgilio vergara;Cre ated Date: 012 1:15: 53 PM; Not Available [facility] 6 02:52:01 Medications Name Sig Start Date [...] Available Not Available Not Available methocarb tiana 750 mg tablet TAKE 1 TABLET BY MOUTH THREE TIMES DAILY NEEDED FOR MUSCLE PAIN active Not Available Not Available No t Available estradiol 1 mg tablet TAKE 1 [...] Not Available Not Available No t Available [facility] 65 mg tablet 12/21 completed Not [...] completed Not Available Not Available Not Available SIMULATION ANALYST Thyroid 60 mg tablet TAKE 2 TABLETS [...] completed Not Available Not Available Not Available Repyamiletha [employer] active Not Available Not Available No t Available Fluarix Quad 1254-0556 (PF) 60 mcg (15 mcg x 4)/0.5 [...] Updated DateTime 5 158.75 cm 37.8 kg/m2 76711.4 g 97.1 [degF] 68 /min 112 mm[Hg] 78 mm[Hg] Margarita Hodges [facility] 5 11:12:04 Social History Question Answer Notes LastModified by Organizat ion Details LastModified Time Tobacco Smoking Status Former Smoker Carol Ruffinrichard long, [facility] 02/06/2019 11:16:18 What Is Your Level Of Caffeine Consumption? Occasional [email or web address] Information not available 03/08/2025 How Much Tobacco Do You Chew? None Information not available 02/06/2019 What Was The Date Of Your Most Recent Tobacco Screening? 02/06/2019 Information not available 01/01/2020 What Is Your Relationship Status? [email or web address] Information not available 12/21/2021 How Much Tobacco Do You Smoke? No [email or web address] Information not available 02/06/2019 Sex: Female Functional Status Question Answer Note LastModified by Organization D etails LastModified Time What is your level of alcohol consumption? None [email or web address] Information not available 02/06/2019 Mental Status None recorded. Family History Relationship Description Onset Age of this Age Resolved Age Notes LastModified by Organization Details LastModified Time Unspecified Relation Family history of malignant neoplasm [email or web address] Not available 2018 11:15:08 Father Hypertensive disorder [email or web address] Not available 2018 11:15:30 Father Heart disease [email or web address] Not available 2018 11:15:41 Mother Hypertensive disorder [email or web address] Not available 2018 11:15:30 Mother Diabetes mellitus [email or web address] Not available 2018 11:16:02 Brother Hypertensive disorder [email or web address] Not available 2018 11:15:30 Sister Hypertensive disorder [email or web address] Not available 2018 11:15:30 Sister Kidney disease [email or web address] Not available 2018 11:15:52 Medical History Condition [...] Pain Y Stomach trouble Y Heart Attack (SD) N Diabetes N Hyperlipidemia N Epilepsy/Seizures N Sleep Apnea Y Heart Disease N Hypertension Y Gynecological HistoryNo gynecological history recorded. Obstetrics History GPAL:G 0 P 0 0 0 0 Past Encounters Encounter ID Performer Location Encounter Start Date Encounter Closed Date Diagnosis/Indication Diagnosis SNOMED-CT Code Diagnosis ICD10 Code Diagnosis Note [id number] MD CHERELLE REYES [facility] [place] [address] 02/15/2025 10:06:41 02/15/2025 11:23:37 Chronic sinusitis 07110061 J32.9 Fibromyalgia 924464659 M 79.7 Temporoman dibular joint disorder 80325358 M26.609 Ear pressu re sensation 935371197 H93.8X9 Chronic re current sinusitis 887730028 J32.9 Recurrent acute sinusitis 174311144 J01.91 Vasomotor rhinitis 37953 03 J30.0 Chronic rhinitis 0319327 6 J31.0 [id number] TRIPP ROB MD [place] [facility] [address] [place] [address] 03/08/2025 10:54:31 03/08/2025 13:07:02 Chronic recurrent sinusitis 337547742 J32.9 Ear pressu re sensation 635105499 H93.8X9 Chronic sinusitis 124258 00 J32.9 Recurrent acute sinusitis 770402184 J01.91 Fibromyalgia 962008925 M 79.7 Vasomotor rhinitis 70730 03 J30.0 Chronic rhinitis 2066373 6 J31.0 Health Concerns Section Related Observation LastModified by Organization Detai ls LastModified Time None Recorded Concern Status LastModified by Organization Details LastModified Time None Recorded Payers Encounter Date Sequence Insurance Name Policy Number Policy Lopez Covered Member ID Lopez Member ID Guarantor Name 03/08/2025 2 [place] [id number] 1 Nick Kc [id number] Susan Kc 03/08/2025 1 [place] Susan Kc [id number] Susan Kc Notes Date Note Type [...] used for itchy/watery eyes. TRIPP ROB MD [facility] [place], [address], [facility] 03/08/2025 11:47:08 OBGyn Episode No OBEpisode recorded.
--- OUTSIDE RECORDS SUMMARY | 2025-05-02 10:15 | XMS_ITS | Data Portability ---
Author Organization [facility] [place] [facility] ADMIN Address [address] [place] [id number] Care Team Providers Care Public Relations Associate Name Role Phone [facility] Primary Care Yayo luong Assessment No [...] Organization Details Recorded Time Sensorineural hearing loss 24133844 Active 2023 ADWOA MORATAYA [address] , [place], [address] , [facility] & [place] 4 10:10:40 Abnormal auditory perception 13135122 Active 2023 ADWOA MORATAYA [address] , [place], [address] , [facility] & [place] 4 10:11:45 Problem Notes None recorded. Procedures Surgical History Date Name Laterality Status Provider Name and Address Organization Details Recorded Time 07/05/20 24 completed Dayan Moraes [facility] & [place] 07/25/2024 11:05:11 04/16/20 24 Date of Last Pap Smear completed Dayan Aleisha [place] - [facility] [place] [facility] [place] 07/25/2024 11:05:11 09/28/20 23 Date of Last Colonoscopy completed Dayan Aleisha [place] [facility] [place] [facility] [place] 07/25/2024 11:05:11 11/14/19 23 Colonoscopy completed Dayan Aleisha [place] [facility] [place] [facility] [place] 07/25/2024 11:05:27 11/14/19 22 Hip Surgery completed Dayan Aleisha [place] [facility] [place] [facility] [place] 07/25/2024 11:05:27 11/14/19 19 Cardiovascular Surgery completed Dayan Aleisha [place] [facility] [place] [facility] [place] 07/25/2024 11:05:27 11/14/19 18 Other completed Dayan Aleisha [place] [facility] [place] [facility] [place] 07/25/2024 11:05:27 11/14/19 16 Other completed Dayan Aleisha [place] [facility] [place] [facility] [place] 07/25/2024 11:05:27 11/14/19 14 Gate Cutter Surgery completed Dayan Aleisha [place] [facility] [place] [facility] [place] 07/25/2024 11:05:27 11/14/19 06 Other completed Dayan Aleisha [place] [facility] [place] [facility] [place] 07/25/2024 11:05:26 Cataract Surgery completed Dayan Aleisha [place] [facility] [place] [facility] [place] 07/23/2024 13:37:15 Hysterectomy completed Dayan Aleisha [place] [facility] [place] [facility] [place] 07/23/2024 14:02:12 Imaging Results None recorded. Procedure Notes None recorded. Medical Equipment None Reported. Allergies Allergen ID Allergen Name Allergen Category Reaction Reaction Severity Criticality Documentation Date Start Date Code Code System Note Provider Name and Address Organization Details Recorded Time 258983 [place] Not available hives severe Not available 07/25/2024 44440 UNK Dayan Aleisha [place], [place] - [facility] [place] [facility] [place] 11:05:01 274825 shellfish derived food,medi cation Not available Not available Not available 07/25/2024 46689 UNK Dayan Moraes [facility], [place] - [facility] - [place] & [place] 4 11:05:01 Medications Name Sig Start Date [...] completed Not Available Not Available 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 [id number] Information not available 07/25/2024 Family History Nothing [...] SNOMED-CT Code Diagnosis ICD10 Code Diagnosis Note [id number] Ruba Jeff MD [facility] [place] [id number] 07/25/2024 10:50:53 07/25/2024 11:37:43 Allergic rhinitis 74857993 J30.9 Will plan to allergy test her in the office at her [facility]. Will discuss results at that visit. Can see her back sooner if needed. [id number] Ruba Jeff MD [facility] [place] [address] [place] [address] 08/24/2024 09:18:26 08/24/2024 10:01:16 Allergic rhinitis 05298260 J30.9 Wasn't able to allergy skin test patient today due to her recently being on oral steroid. Explained to the patient this could give patient a false negative reaction. Blood was drawn today for RAST testing. Will be in touch with those results when they are received. [id number] ADWOA MORATAYA [facility] [place] [phone] 09/19/2024 09:42:13 09/19/2024 09:54:11 Abnormal auditory perception 37285831 H93.299 Health Concerns Section Related Observation LastModified by Organization Detai ls LastModified Time None Recorded Concern Status LastModified by Organization Details LastModified Time None Recorded Advance Directives Directive Y: Payers Insurance Date Sequence Insurance Name Policy Number Policy Lopez Covered Member ID Lopez Member ID Guarantor Name 09/16/2024 1 [employer] [id number] Nick Kc [id number] Susan Kc Notes Date Note Type [...] eyes. Ruba Jeff MD [address], [place], [address], [facility] 07/25/2024 13:07:02 09/19/2024 text/html Ms. Kc was [...] Dr. Jeff as planned. ADWOA MORATAYA [address], [place], [address], [facility] & [place] 09/19/2024 10:12:01 OBGyn Episode No OBEpisode recorded.
--- OUTSIDE RECORDS SUMMARY | 2025-05-02 10:16 | XMS_ITS | Data Portability ---
Author Organization formerly [facility] Address [address] [place] [address] Care Team Providers Care Quality Assurance Monitor Final Name Role Phone SUNITA ALMANZA Primary Care Provider Assessment Encounter Date Assessment Date Assessment LastModified by Organization Details LastModified Time 02/14/2019 02/14/2019 This is a 48-year-old female seen today for evaluation and treatment related to low back pain with diffuse nondermatomal lower extremity radiation. She describes radiation into the right buttock and posterior thigh associated with numbness and tingling as well as left anterior thigh extending to the great toe numbness and tingling. Patient has been present for approximately one year with no inciting event. 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 This worsens her pain. She also has a relevant past medical history of fibbromyalgia. Lumbar MRI demonstrates very mild degeneration of the L5-S1 disc space, and otherwise normal imaging. She never undergone injections for this pain. She's undergone the injections in the past with limited benefit by another provider. Medication management has included gabapentin with no benefit, Cymbalta was no benefit, and Lyrica with no benefit. 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 She does have tenderness over the SI joint and some symptoms consistent with piriformis syndrome. I recommend bilateral SI/PT for diagnostic and therapeutic purposes. Also recommended aqua therapy and home exercises. Thorough discussion today had with patient regarding etiology and treatment efficacy for fibromyalgia. I recommended that the patient become involved in some daily exercise program. Recommendation was also given for aquatic therapy as this can be beneficial. In addition outside resources for mindfulness therapy and medication therapy as outlined above were discussed. salina Not available 02/14/2019 13:31:33 03/25/2021 03/25/2021 This is a pleasa nt morbidly obese 50-year-old female with fibromyalgia and a complaint of low back pain with referral into bilateral lower extremities more so on right than left that follows roughly an L3 dermatome. We have not seen her in over 2 years. Previous older MRI was negative for any significant pathology explain her low back pain. She had similar symptoms slightly over 2 years ago and we performed a bilateral SI joint injection on her. Unfortunately she does not recall the results as she had a stroke shortly after this. She was placed on anticoagulation and aspirin for about 8 months but at this time is only on aspirin. She also had repair of a PFO and has been asked not to take any type of NSAIDs but can utilize aspirin and Tylenol. She is currently on Lyrica by her PCP. She reports her symptoms are active by standing as well as bending and twisting. She is not able to perform Adams today due to impart obesity as well as discomfort and her straight leg raise is positive bilaterally. 02/28/2019: Bilateral SI joint injection: Lumbar MRI demonstrates very mild degeneration of the L5-S1 disc space, and otherwise normal imaging. Medication management has included gabapentin with no benefit, Cymbalta was no benefit, and is currently on Lyrica by her PCP. Sandeep was reviewed and found to be appropriate. ORT is 0. Her initial urine drug screen in 2019 was inappropriate for benzodiazepines. Urine drug screen in office today is negative for all categories. This will be sent to the lab for confirmation to establish a baseline as a new patient as we have not seen her in over 2 years. Exam in the office today shows she is grossly neurologically intact for bilateral lower extremities. Straight leg raise is positive bilaterally more so on right than left. DTRs within normal limits and there are no long track signs. She is unable to perform Adams in part due to habitus but also significant increase in low back pain with attempting this maneuver. Gaenslen's and posterior thigh thrust are also positive and she does have a positive Mandie finger. There is pain to palpation lower aspect of her lumbar spine on the right around L4 and L5 and on the left particular around the SI joint. She does have some reproduction of discomfort with lumbar facet loading with rotation. This is a pleasant morbidly obese 50-year-old female with fibromyalgia and a primary complaint of low back pain. Exam is mixed today in is consistent with lumbar stenosis as well as sacroiliitis. She has undergone SI joint injections in the past but does not recall the benefit as she had a stroke shortly thereafter. The plan today is to order a bilateral SI joint injection for diagnostic as well as therapeutic purposes. If she has not had notable benefit from this we will arrange for physical therapy for her low back. She is not able to tolerate NSAIDs. If she is not had notable improvement from the physical therapy will update her MRI. No medications were provided today. [email or web address] Not available 03/25/2021 08:50:17 10/12/2021 10/12/2021 Ms. Kc is a 50-year-old female. She is seen in clinic today for the first time since April 22, 2021. She continues to be symptomatic with low back pain. The pain affects the lumbar region bilaterally with symptoms extending into the buttocks and hip region bilaterally. She does get symptoms into the anterior thigh region bilaterally, but she does not have symptoms going below the level of the knees. This pain is problematic at rest as well as with activity level. This pain is affecting her activities of daily living, mobility, and sleep. Her last sacroiliac joint injections only provided pain relief for 2 days. She presents to clinic today to discuss additional treatment options for the low back pain. The patient reports on October 04, 2021, she broke her right index finger. She is currently treating with Dr. New for this, and she is scheduled to follow-up with this provider later today. She has a significant past medical history for previous stroke on July 12, 2019. She is currently on low-dose aspirin daily. She does treat with Dr. Lewis, rheumatology, for fibromyalgia. She is prescribed Lyrica. She is status post bilateral sacroiliac joint injections under fluoroscopy April 22, 2021 with 80 to 90% pain relief for 2 days. She is status post bilateral sacroiliac joint with bilateral piriformis tendon injections under fluoroscopy March 02, 2019. Lumbar MRI without contrast dated January 10, 2018 noted mild thoracolumbar scoliosis, small anterior osteophytes are noted, mild disc desiccation with slight anterior spurring with slight disc bulge and mild facet arthrosis present at L5-S1 level. On clinical exam today, she is tender to palpation particularly over facet joint level L5-S1 bilaterally. This pain is exacerbated with lumbar extension and lumbar lateral bending bilaterally. This patient returns to us with the continued complaint of low back pain. The pain affects the lumbar region bilaterally. She has referral of symptoms into the buttocks, hips, and thighs bilaterally. Her symptoms do not extend below the level of the knees. She has no symptoms consistent with radiculopathy. Previous lumbar MRI did not show any evidence of stenosis or nerve root compression. The MRI does note facet arthropathy at L5-S1 level. This matches the clinical presentation today. For this, I have recommended a diagnostic bilateral lumbar medial branch block procedure levels L4-S1 under fluoroscopy. If diagnostically positive, a second confirmation block will be performed. If that too is positive, we will advance to radiofrequency procedure to manage the pain for the long-term. The recommended procedure is discussed with the patient in detail. Her questions are answered. She is provided the patient education handout. The patient is agreeable. Pending insurance approval, she will return to clinic with a local hazmat driver for this recommended procedure. Her ORT score is 0 indicating low risk. [email or web address] Not available 10/12/2021 12:09:52 Plan of Treatment Reminders Order Date Submit Date Provider Last Modified By Organization Details Last Modified Time Details Appointments None recorded. Lab drug screen, urine 2020 021 [email or web address] [facility], [facility] [address], [place], [address], 11:35:15 unlisted lab - confirm new patient 2020 021 [facility], [facility], [address] [place] [address], [address], 14:45:53 drug screen, urine 2018 019 bgish Sharon, [address], [place], [address], 9 13:32:05 Referral aquatic therapy referral 2018 019 [email or web address] Not available 9 08:32:05 Procedures medial branch block, lumbar (PROC) 2020 021 [email or web address] 2 Not available 2 07:56:36 injection, sacroiliac joint (PROC) - #2 Bilateral SI in 4 weeks Chantal Ish 2020 021 [email or web address] Not available 1 08:36:50 sacroiliac joint injection (PROC) 2020 021 [email or web address] 2 Not available 1 10:29:07 injection, sacroiliac joint (PROC) 2018 019 [email or web address] Not available 9 15:49:42 Surgeries None recorded. Imaging None recorded. Medication Orders None recorded. Patient TargetsNo targets recorded. Patient Instructions Encounter Date Encounter Id Patient Instructions Last Modified By Organization Details Last Modified Time 02/14/2019 [id number] medical record request* - requesting lumbar MRI at [facility] Open [facility] MICHELLE Not available 02/14/2019 14:24:15 Reason for Referral Aquatic Therapy Referral for Inflammation of sacroiliac joint Referring Physician: Mariusz Corneoj, Pain Management, Encounter Date: 02/14/2019 Results Created Date Observation Date Name Description Value Unit Range Abnormal Flag Note LastModifiedBy Organization Detail LastModifiedTime 02/15/2002/14/2019 drug scree n, urine THC: negati ve Not Available [facility] [address], [place], [address], 02/14/2019 13:15:27 02/15/2002/14/2019 drug scree n, urine Buprenorphin e: negati ve Not Available [facility] [address], [place], [address], 02/14/2019 13:15:27 02/15/2002/14/2019 drug scree n, urine TCA: negati ve Not Available [facility] [address], [place], [address], 02/14/2019 13:15:27 02/15/20 02/14/2019 drug scree n, urine Barbiturates : negati ve Not Available [facility] [address], [place], [address], 02/14/2019 13:15:27 02/15/20 19 02/14/2019 drug scree n, urine Benzodiazepi idnia: positi ve Not Available [facility] [address], [place], [address], 02/14/2019 13:15:27 02/15/20 19 02/14/2019 drug scree n, urine Methadone: negati ve Not Available [facility] [address], [place], [address], 02/14/2019 13:15:27 02/15/20 19 02/14/2019 drug scree n, urine Amphetamines : negati ve Not Available [address], [place], [address], 02/14/2019 13:15:27 02/15/20 19 02/14/2019 drug scree n, urine Morphine/Opi ates: negati ve Not Available [facility] [address], [place], [address], 02/14/2019 13:15:27 02/15/20 19 02/14/2019 drug scree n, urine Oxycodone: negati ve Not Available [facility] [address], [place], [address], 02/14/2019 13:15:27 02/15/20 19 02/14/2019 drug scree n, urine MDMA: negati ve Not Available [facility] [address], [place], [address], 02/14/2019 13:15:27 02/15/20 19 02/14/2019 drug scree n, urine Cocaine: negati ve Not Available [facility] [address], [place], [address], 02/14/2019 13:15:27 02/15/20 19 02/14/2019 drug scree n, urine Methamphetam ine: negati ve Not Available [facility] [address], [place], [address], 02/14/2019 13:15:27 02/16/20 19 02/15/2019 drug confi rmati on, urine abnormal status abnormal Not Available [facility], [address], [address], 02/23/2019 08:57:59 02/16/20 19 02/15/2019 speci men valid ity testi ng urine creatinine 228 mg/dL 44-355 normal [facility] ribed Medic ation s: Katie a (Preg abali n) Not Available [facility], [address], [address], 02/23/2019 08:57:58 02/16/20 19 02/15/2019 ssri citalopram Not Detect ed NG/mL 75 normal Not Available [facility], [address], [address], 02/23/2019 08:57:58 02/16/20 19 02/15/2019 ssri N-desmethylc italopram Not Detect ed NG/mL 75 normal Not Available [facility], [address], [address], 02/23/2019 08:57:58 02/16/20 19 02/15/2019 ssri fluoxetine Not Detect ed NG/mL 75 normal Not Available [facility], [address], [address], 02/23/2019 08:57:58 02/16/20 19 02/15/2019 ssri norfluoxetin e Not Detect ed NG/mL 75 normal Not Available [facility], [address], [address], 02/23/2019 08:57:58 02/16/20 19 02/15/2019 ssri paroxetine Not Detect ed NG/mL 75 normal Not Available [facility], [address], [address], 02/23/2019 08:57:58 02/16/20 19 02/15/2019 ssri sertraline Not Detect ed NG/mL 75 normal Pres ribed Medic ation s: Katie a (Preg abali n) Not Available [facility], [address], [address], 02/23/2019 08:57:58 02/16/20 19 02/15/2019 amphe tamin es D/L - amphetamine Not Detect ed NG/mL 75 normal Not Available [facility], [address], [address], 02/23/2019 08:57:57 02/16/20 19 02/15/2019 amphe tamin es D/L - methamphetam ine Not Detect ed NG/mL 75 normal Not Available [facility], [address], [address], 02/23/2019 08:57:57 02/16/20 19 02/15/2019 amphe tamin es ritalinic acid Not Detect ed NG/mL 75 normal Pres ribed Medic ation s: Katie a (Preg abali n) Not Available [facility], [address], [address], 02/23/2019 08:57:57 02/16/20 19 02/15/2019 wen turat es butalbital Not Detect ed NG/mL 150 normal Not Available [facility], [address], [address], 02/23/2019 08:57:57 02/16/20 19 02/15/2019 wen turat es phenobarbita l Not Detect ed NG/mL 150 normal Pres ribed Medic ation s: Katie a (Preg abali n) Not Available [facility], [address], [address], 02/23/2019 08:57:57 02/16/20 19 02/15/2019 thera peuti c drugs carisoprodol -soma Not Detect ed NG/mL 75 normal Not Available [facility], [address], [address], 02/23/2019 08:57:56 02/16/20 19 02/15/2019 thera peuti c drugs meprobamate Not Detect ed NG/mL 75 normal Pres ribed Medic ation s: Katie a (Preg abali n) Not Available [facility], [address], [address], 02/23/2019 08:57:56 02/16/20 19 02/15/2019 benzo diaze pines 7-aminoclona zepam Not Detect ed NG/mL 60 normal Not Available [facility], [address], [address], 02/23/2019 08:57:56 02/16/20 19 02/15/2019 benzo diaze pines alprazolam Not Detect ed NG/mL 60 normal Not Available [facility], [address], [address], 02/23/2019 08:57:56 02/16/20 19 02/15/2019 benzo diaze pines alpha-hydrox yalprazolam Not Detect ed NG/mL 60 normal Not Available [facility], [address], [address], 02/23/2019 08:57:56 02/16/20 19 02/15/2019 benzo diaze pines lorazepam Not Detect ed NG/mL 60 normal Not Available [facility], [address], [address], 02/23/2019 08:57:56 02/16/20 19 02/15/2019 benzo diaze pines nordiazepam Not Detect ed NG/mL 60 normal Not Available [facility], [address], [address], 02/23/2019 08:57:56 02/16/20 19 02/15/2019 benzo diaze pines oxazepam 87 POSITI VE NG/mL 60 abnormal Not Available [facility], [address], [address], 02/23/2019 08:57:56 02/16/20 19 02/15/2019 benzo diaze pines temazepam Not Detect ed NG/mL 60 normal Pres ribed Medic ation s: Katie a (Preg abali n) Not Available [facility], [address], [address], 02/23/2019 08:57:56 02/16/20 19 02/15/2019 sheri analo gs gabapentin Not Detect ed NG/mL 225 normal Not Available [facility], [address], [address], 02/23/2019 08:57:55 02/16/20 19 02/15/2019 sheri analo gs pregabalin POSITI VE>150 00 NG/mL 225 normal Not Available [facility], [address], [address], 02/23/2019 08:57:55 02/16/2002/15/2019 sheri analo gs zaleplon Not Detect ed NG/mL 7.5 normal Not Available [facility], [address], [address], 02/23/2019 08:57:55 02/16/20 19 02/15/2019 sheri analo gs zolpidem Not Detect ed NG/mL 75 normal Presc ribed Medic ation s: Katie a (Preg abali n) Not Available [facility], [address], [address], 02/23/2019 08:57:55 02/16/20 19 02/15/[address] antag buprenorphin e Not Detect ed NG/mL 7.5 normal Not Available [facility], [address], [address], 02/23/2019 08:57:55 02/16/20 19 02/15/[address] antag norbuprenorp jodie Not Detect ed NG/mL 37.5 normal Not Available [facility], [address], [address], 02/23/2019 08:57:55 02/16/20 19 02/15/[address] antag naloxone Not Detect ed NG/mL 75 normal Not Available [facility], [address], [address], 02/23/2019 08:57:55 02/16/20 19 02/15/[address] antag pentazocine Not Detect ed NG/mL 22.5 normal Pres ribed Medic ation s: Katie a (Preg abali n) Not Available [facility], [address], [address], 02/23/2019 08:57:55 02/16/2002/15/2019 opiat es/op ioids codeine Not Detect ed NG/mL 75 normal Not Available [facility], [address], [address], 02/23/2019 08:57:54 02/16/2002/15/2019 opiat es/op ioids fentanyl Not Detect ed NG/mL 6 normal Not Available [facility], [address], [address], 02/23/2019 08:57:54 02/16/20 19 02/15/2019 opiat es/op ioids norfentanyl Not Detect ed NG/mL 6 normal Not Available [facility], [address], [address], 02/23/2019 08:57:54 02/16/20 19 02/15/2019 opiat es/op ioids morphine Not Detect ed NG/mL 75 normal Not Available [facility], [address], [address], 02/23/2019 08:57:54 02/16/20 19 02/15/2019 opiat es/op ioids hydrocodone Not Detect ed NG/mL 75 normal Not Available [facility], [address], [address], 02/23/2019 08:57:54 02/16/20 19 02/15/2019 opiat es/op ioids norhydrocodo ne Not Detect ed NG/mL 75 normal Not Available [facility], [address], [address], 02/23/2019 08:57:54 02/16/20 19 02/15/2019 opiat es/op ioids hydromorphon e Not Detect ed NG/mL 75 normal Not Available [facility], [address], [address], 02/23/2019 08:57:54 02/16/20 19 02/15/2019 opiat es/op ioids oxycodone Not Detect ed NG/mL 37.5 normal Not Available [facility], [address], [address], 02/23/2019 08:57:54 02/16/20 19 02/15/2019 opiat es/op ioids noroxycodone Not Detect ed NG/mL 37.5 normal Not Available [facility], [address], [address], 02/23/2019 08:57:54 02/16/20 19 02/15/2019 opiat es/op ioids oxymorphone Not Detect ed NG/mL 75 normal Not Available [facility], [address], [address], 02/23/2019 08:57:54 02/16/20 19 02/15/2019 opiat es/op ioids meperidine Not Detect ed NG/mL 37.5 normal Not Available [facility], [address], [address], 02/23/2019 08:57:54 02/16/20 19 02/15/2019 opiat es/op ioids normeperidin e Not Detect ed NG/mL 37.5 normal Not Available [facility], [address], [address], 02/23/2019 08:57:54 02/16/20 19 02/15/2019 opiat es/op ioids methadone Not Detect ed NG/mL 75 normal Not Available [facility], [address], [address], 02/23/2019 08:57:54 02/16/20 19 02/15/2019 opiat es/op ioids methadone (EDDP) Not Detect ed NG/mL 75 normal Not Available [facility], [address], [address], 02/23/2019 08:57:54 02/16/20 19 02/15/2019 opiat es/op ioids propoxyphene Not Detect ed NG/mL 75 normal Not Available [facility], [address], [address], 02/23/2019 08:57:54 02/16/20 19 02/15/2019 opiat es/op ioids norpropoxyph leighton Not Detect ed NG/mL 75 normal Not Available [facility], [address], [address], 02/23/2019 08:57:54 02/16/20 19 02/15/2019 opiat es/op ioids tapentadol Not Detect ed NG/mL 37.5 normal Not Available [facility], [address], [address], 02/23/2019 08:57:54 02/16/20 19 02/15/2019 opiat es/op ioids tramadol Not Detect ed NG/mL 75 normal Not Available [facility], [address], [address], 02/23/2019 08:57:54 02/16/20 19 02/15/2019 opiat es/op ioids V-dbv-tmzlun -cis-tramado l Not Detect ed NG/mL 75 normal Presc ribed Medic ation s: Katie a (Preg abali n) Not Available [facility], [address], [address], 02/23/2019 08:57:54 02/16/20 19 02/15/2019 drug confi rmati on, urine comment: See Compon ents normal Presc ribed Medic ation s: Katie a (Preg abali n) Not Available [facility], [address], [address], 02/23/2019 08:57:53 03/25/20 21 03/25/2021 drug scree n, urine THC: negati ve Not Available [facility] [address], [place], [address], 03/25/2021 08:33:59 03/25/20 21 03/25/2021 drug scree n, urine Buprenorphin e: negati ve Not Available [facility] [address], [place], [address], 03/25/2021 08:33:59 03/25/20 21 03/25/2021 drug scree n, urine TCA: negati ve Not Available [facility] [address], [place], [address], 03/25/2021 08:33:59 03/25/20 21 03/25/2021 drug scree n, urine Barbiturates : negati ve Not Available [address], [place], [address], 03/25/2021 08:33:59 03/25/20 21 03/25/2021 drug scree n, urine Benzodiazepi ind[place]: positi ve Not Available [facility] [address], [place], [address], 03/25/2021 08:33:59 03/25/20 21 03/25/2021 drug scree n, urine Methadone: negati ve Not Available [facility] [place] [address], [place], [address], 03/25/2021 08:33:59 03/25/20 21 03/25/2021 drug scree n, urine Amphetamines : negati ve Not Available [facility] [place] [address], [place], [address], 03/25/2021 08:33:59 03/25/20 21 03/25/2021 drug scree n, urine Morphine/Opi ates: negati ve Not Available [address], [place], [address], 03/25/2021 08:33:59 03/25/20 21 03/25/2021 drug scree n, urine Oxycodone: negati ve Not Available [facility] [place] [address], [place], [address], 03/25/2021 08:33:59 03/25/20 21 03/25/2021 drug scree n, urine MDMA: negati ve Not Available [facility] [address], [place], [address], 03/25/2021 08:33:59 03/25/20 21 03/25/2021 drug scree n, urine Cocaine: negati ve Not Available [facility] [address], [place], [address], 03/25/2021 08:33:59 03/25/20 21 03/25/2021 drug scree n, urine Methamphetam ine: negati ve Not Available [facility] [address], [place], [address], 03/25/2021 08:33:59 02/15/20 19 01/10/2019 medic al recor d reque st* No observ ation record ed. [email or web address] Not Available 2018 14:02:16 02/15/20 19 01/10/2019 MRI, lumba r spine , w/o contr ast No observ ation record ed. Not Available 2018 14:02:16 Result Notes None recorded. Problems Name Problem SNOMED Code Status Onset Date Resolution Date Notes Provider Name and Address Organization Details Recorded Time Low back pain 525703637 Active 2018 [facility] 9 12:56:46 Piriformis syndrome 341008697 Active 2018 Mariusz Cornejo MD [address] [place] [address], [phone] , [facility] 9 13:29:23 Long-term drug therapy Active 2018 Mariusz Cornejo MD [address] [place] [address], [phone] , [facility] 9 13:29:24 Inflammation of sacroiliac joint 17716952 Active 2018 Mariusz Cornejo MD [address] [place] [address], [phone] , [facility] 9 13:29:25 Lumbar spondylosis 915659456 Active 2020 SANDY Plascencia [facility] [address], [place], [address] , [facility] 10:57:02 Problem Notes None recorded. Procedures Surgical History Date Name Laterality Status Provider Name and Address Organization Details Recorded Time 04/22/20 21 SI Joint Injection (Fluoro) completed Lizzy Calix [facility] 04/22/2021 10:02:50 02/29/20 19 SI Joint Injection (Fluoro) completed Shirin Cotaon [facility] 02/28/2019 12:01:04 Knee Surgery completed Alem Wallace [facility] 02/14/2019 12:52:11 Foot/Ankle Surgery completed Alem Madison [facility] 02/14/2019 12:52:11 Hysterectomy completed Alem Madison [facility] 02/14/2019 12:57:22 Imaging Results None recorded. Procedure Notes None recorded. Medical Equipment None Reported. Allergies No known drug allergies Medications Name Sig Start Date Stop Date Status Note LastModified by Organization Details LastModified Time promethazin e-DM 6.25 mg-15 mg/5 mL oral syrup 02/14 completed Not Available Not Available Not Available atorvastati n 80 mg tablet TAKE 1 TABLET BY MOUTH ONCE DAILY active Not Available Not Available No t Available prednisone 10 mg tablet 10/12 completed Not Available Not Available Not Available triamcinolo ne acetonide 0.5 % topical cream 10/12 completed Not Available Not Available Not Available metoprolol succinate ER 50 mg tablet,exte nded release 24 hr TAKE 1 TABLET BY MOUTH ONCE DAILY active Not Available Not Available No t Available prednisone 20 mg tablet 02/14 completed Not Available Not Available Not Available prednisone 5 mg tablet 02/14 completed Not Available Not Available Not Available lidocaine HCl 2 % mucosal jelly 02/14 completed Not Available Not Available Not Available fexofenadin e 180 mg tablet TAKE 1 TABLET BY MOUTH ONCE DAILY TO IMPROVE ALLERGY SYMPTOMS active Not Available Not Available No t Available sulfamethox azole 800 mg-trimetho prim 160 mg tablet 10/12 completed Not Available Not Available Not Available aspirin 81 mg tablet,hussein yed release TAKE 1 TABLET BY MOUTH ONCE DAILY active Not Available Not Available No t Available leflunomide 20 mg tablet 03/22 completed Not Available Not Available Not Available tramadol 50 mg tablet 10/12 completed Not Available Not Available Not Available prednisone 10 mg tablets in a dose pack 02/14 completed Not Available Not Available Not Available estradiol 1 mg tablet 03/22 completed Not Available Not Available Not Available doxycycline monohydrate 100 mg capsule 02/14 completed Not Available Not Available Not Available cyanocobala min (vit B-12) 1,000 mcg/mL injection solution INJECT 1 ML INTRAMUSC ULARLY EVERY 2 WEEKS FOR 2 DOSES THEN ONCE EVERY MONTH active Not Available Not Available No t Available ranitidine 150 mg tablet 02/14 completed Not Available Not Available Not Available ursodiol 250 mg tablet TAKE 2 TABLETS BY MOUTH TWICE DAILY 10/12 completed Not Available Not Available Not Available BD Luer-Vipin Syringe 3 mL 25 gauge x 1 FOR B 12 INJECTION S 10/12 completed Not Available Not Available Not Available omeprazole 20 mg capsule,del ayed release TAKE 2 CAPSULES BY MOUTH ONCE DAILY NEEDED active Not Available Not Available No t Available chlordiazep oxide-clidi nium 5 mg-2.5 mg capsule TAKE 1 CAPSULE BY MOUTH BEFORE MEALS AND AT BEDTIME (4 TIMES DAILY) active Not Available Not Available No t Available folic acid 1 mg tablet 02/14 completed Not Available Not Available Not Available metoprolol succinate ER 25 mg tablet,exte nded release 24 hr TAKE 1 TABLET BY MOUTH ONCE DAILY 03/25 completed Not Available Not Available Not Available ergocalcife rol (vitamin D2) 1,250 mcg (50,000 unit) capsule TAKE 1 CAPSULE BY MOUTH TWICE A WEEK active Not Available Not Available No t Available albuterol sulfate HFA 90 mcg/actuati on aerosol inhaler INHALE 2 PUFFS BY MOUTH EVERY 4 HOURS NEEDED FOR WHEEZING active Not Available Not Available No t Available ondansetron 4 mg disintegrat ing tablet 02/14 completed Not Available Not Available Not Available cefdinir 300 mg capsule 03/22 completed Not Available Not Available Not Available amoxicillin 875 mg-potassiu m clavulanate 125 mg tablet 02/14 completed Not Available Not Available Not Available tobramycin 0.3 %-dexametha sone 0.1 % eye drops,suspe nsion INSTILL 1 DROP INTO LEFT EYE TWICE DAILY FOR 7 DAYS 10/12 completed Not Available Not Available Not Available Pneumovax-2 3 25 mcg/0.5 mL injection syringe 02/14 completed Not Available Not Available Not Available azithromyci n 500 mg tablet TAKE 1 TABLET BY MOUTH ONCE DAILY 03/25 completed Not Available Not Available Not Available escitalopra m 10 mg tablet TAKE 1 TABLET BY MOUTH ONCE DAILY TO IMPROVE MOOD 03/25 completed Not Available Not Available Not Available escitalopra m 20 mg tablet TAKE 1 TABLET BY MOUTH ONCE DAILY TO IMPROVE MOOD 10/12 completed Not Available Not Available Not Available topiramate 50 mg tablet 03/22 completed Not Available Not Available Not Available nitrofurant oin monohydrate /macrocryst als 100 mg capsule 10/12 completed Not Available Not Available Not Available ursodiol 500 mg tablet TAKE 1 TABLET BY MOUTH TWICE DAILY active Not Available Not Available No t Available pregabalin 225 mg capsule Take 1 capsule twice a day by oral route. 10/12 completed Not Available Not Available Not Available Lyrica 150 mg capsule 02/14 completed Not Available Not Available Not Available Lyrica 200 mg capsule 03/25 completed Not Available Not Available Not Available vitamin E active Not Available Not Kimberly ilable Not Available MoviPrep 100 gram-7.5 gram-2.691 gram oral powder packet 02/14 completed Not Available Not Available Not Available Havrix (PF) 1,440 CECILIA unit/mL intramuscul ar syringe 02/14 completed Not Available Not Available Not Available Nature-Thro id 65 mg tablet TAKE 2 & 1 2 (TWO & ONE HALF) TABLETS BY MOUTH ONCE DAILY 10/12 completed Not Available Not Available Not Available Xifaxan 550 mg tablet TAKE 1 TABLET BY MOUTH THREE TIMES DAILY FOR 14 DAYS FOR IBS 10/12 completed Not Available Not Available 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 60 mg tablet TAKE 2 & 1 2 (TWO & ONE HALF) TABLETS BY MOUTH ONCE DAILY active Not Available Not Available No t Available Vitamin D2 take 1 capsule twice [place] 10/12 completed Not Available Not Available Not Available Tristan 36,000 unit-114,00 0 unit-180,00 0 unit capsule,del ayed release 02/14 completed Not Available Not Available Not Available Intrarosa 6.5 mg vaginal insert INSERT 1 SUPPOSITO RY VAGINALLY AT BEDTIME 10/12 completed Not Available Not Available Not Available Fluarix Quad 6126-5522 (PF) 60 mcg (15 mcg x 4)/0.5 mL IM syringe 02/14 completed Not Available Not Available Not Available Vitals Date Recorded Body weight Body mass index (BMI) Body height Oxygen saturation Oxygen saturation in Arterial blood by Pulse oximetry Heart rate Systolic blood pressure Diastolic blood pressure Provider Name and Address Organization Details Last Updated DateTime 9 39640.1 7 g 38.3 kg/m2 158.75 cm 98 % 98 % 80 /min 128 mm[Hg] 96 mm[Hg] Alem Wallace [facility] 9 13:07:10 Date Recorded Body weight Body mass index (BMI) Body height Provider Name and Address Organization Details Last Updated DateTime 03/25/2021 33905.17 g 38.3 kg/m2 158.75 cm rochelle vieira [facility] 03/25/2021 08:13:32 Date Recorded Body height Body mass index (BMI) Body weight Provider Name and Address Organization Details Last Updated DateTime 10/12/2021 158.75 cm 38.3 kg/m2 31956.17 g Es Holman [facility] 10/12/2021 10:27:38 Social History Question Answer Notes LastModified by Organizat ion Details LastModified Time Tobacco Smoking Status Former Smoker Alem long [facility] 02/14/2019 12:52:07 What Is Your Level Of Caffeine Consumption? Moderate [email or web address] Information not available 02/14/2019 How Much Tobacco Do You Chew? None [email or web address] Information not available 02/14/2019 Are You Deaf Or Do You Have Serious Difficulty Hearing? No [email or web address] Information not available 02/14/2019 Hard Of Hearing Or Deaf In One Or Both Ears? No Information not available 02/14/2019 Marital Status [email or web address] Informati on not available 02/14/2019 What Was The Date Of Your Most Recent Tobacco Screening? 02/14/2019 [email or web address] Information not available 03/25/2021 General Stress Level Medium [email or web address] Information not available 02/14/2019 Do You Have Difficulty Walking Or Climbing Stairs? Yes [email or web address] Information not available 02/14/2019 Sex: Unknown Functional Status Question Answer Note LastModified by Organizat ion Details LastModified Time What is your level of alcohol consumption? Occasional [email or web address] Information not available 02/14/2019 Are you currently employed? Yes [email or web address] Information not available 10/12/2021 Are you able to walk? YESWOREST [email or web address] Information not available 02/14/2019 Do you have difficulty doing errands alone? Yes Information not available 02/14/2019 Do you have difficulty dressing or bathing? Yes [email or web address] Information not available 02/14/2019 What is your exercise level? None Information not available 10/12/2021 Mental Status Question Answer Note LastModified by Organization D etails LastModified Time Do you have difficulty concentrating, remembering or making decisions? Yes [email or web address] Information no t available 02/14/2019 Family History Relationship Description Onset Age of this Age Resolved Age Notes LastModified by Organization Details LastModified Time Maternal Grandmother Rheumatoid arthritis [email or web address] Not available 2020 08:13:47 Maternal Grandmother Hypertensive disorder [email or web address] Not available 2020 08:13:47 Maternal Grandmother Heart disease [email or web address] Not available 2020 08:13:47 Mother Heart disease [email or web address] Not available 2020 08:13:47 Mother Hypertensive disorder [email or web address] Not available 2020 08:13:47 Father Heart disease vdenny Not available 2020 08:13:47 Brother Hypertensive disorder [email or web address] Not available 2020 08:13:47 Brother Heart disease vdenny Not available 2020 08:13:47 Sister Hypertensive disorder [email or web address] Not available 2020 08:13:47 Medical History Condition Response Bipolar Disease N Coronary Artery Disease N Seizure Disorder N Gout N Thyroid Disease Y Atrial Fibrillation N Head Trauma/Injury N Hernia N Depression N COPD N Anxiety Disorder N Acid Reflux (GERD) Y Cancer N Stroke N Skin Disorder N High Cholesterol N Liver Disease N Rheumatoid Arthritis N Fibromyalgia Y Headaches Y Kidney Disease N Autoimmune Disease Y Osteoarthritis Y Neurosurgery N DVT N Peptic Ulcer Disease N Anemia N Heart Attack ([place]) N Diabetes N Cardiomyopathy N Bleeding Disorder N CHF N AIDS/HIV N Inflammatory Bowel Disease Y Dementia N Asthma N Substance Abuse N Sleep Apnea Y Hepatitis N Heart Disease N Pulmonary Embolism N Chronic Low Back Pain N Hypertension N Osteoporosis N Gynecological HistoryNo gynecological history recorded. Obstetrics History GPAL:G 0 P 0 0 0 0 Past Encounters Encounter ID Performer Location Encounter Start Date Encounter Closed Date Diagnosis/Indication Diagnosis SNOMED-CT Code Diagnosis ICD10 Code Diagnosis Note [id number] MD [facility] [place] [address] [place] [address] 02/14/2019 12:08:04 02/14/2019 13:32:14 Long-term drug therapy 819413046 Z79.899 The preliminar y urine drug screen is positive for a medication class that the patient is not prescribed and denies taking. The sample is being sent for quantitati ve, LCMS analysis to confirm the presents of this medication /metabolit es and to rule out a possible false positive. Inflammati on of sacroiliac joint 20292540 M46.1 Piriformis syndrome 1291 79812 G57.03 Fibromyalgia 354274337 M 79.7 [id number] MD [facility] [place] [address] [place] [address] 02/28/2019 10:58:06 02/28/2019 12:03:03 Inflammation of sacroiliac joint 34144616 M46.1 [id number] MD [facility] [place] [address] [place] [address] 03/25/2021 08:00:17 03/25/2021 08:53:14 Inflammation of sacroiliac joint 93319285 M46.1 Piriformis syndrome 1291 73240 G57.03 Long-term drug therapy 644137787 Z79.899 The urine sample is being sent for quantitati ve LCMS analysis of illicit drugs (Cocaine, Methamphet amine, Heroin, Fentanyl, THC, Synthetic Cannabinoi ds, Kratom, MDMA, PCP, and Synthetic Stimulants , Opiates (Codeine, Hydrocodon e, Hydromorph one, and Morphine), Oxycodone, Oxymorphon e, Methadone, Synthetic Opioids (Tramadol, Tapentadol , and Buprenorph ine), Benzodiaze pines (Alprazola m, Clonazepam , Lorazepam, Diazepam, Nordazepam , Oxazepam, and Temazepam) , Gabapentin , Pregabalin , Muscle Relaxants (Carisopro dol, Cyclobenza dimitri, and Meprobamat e), Ketamine, Nalaxone, and Amphetamin e, as this patient is being prescribed opioid medication s for the first time at this practice. The purpose of this analysis is to confirm the patients stated medication usage and to establish baseline medication and metabolite quantities , and to evaluate for use of medication s that are not prescribed or reported by the patient. Fibromyalgia 307116592 M 79.7 [id number] Mariusz Cornejo MD [facility] [address],[facility] [address] [place] [address] 04/22/2021 08:38:45 04/22/2021 09:54:16 Inflammation of sacroiliac joint 71601435 M46.1 [id number] Mariusz Cornejo MD [facility] [address] [place] [address] 10/12/2021 10:23:49 10/12/2021 11:20:27 Lumbar spondylosis 405544574 M47.816 The recommende d procedure is discussed with the patient in detail. Questions related to the procedure are answered. The patient is provided the patient education handout. Health Concerns Section Related Observation LastModified by Organization Detai ls LastModified Time None Recorded Concern Status LastModified by Organization Details LastModified Time None Recorded Advance Directives Directive None Recorded Payers Insurance Date Sequence Insurance Name Policy Number Policy Lopez Covered Member ID Lopez Member ID Guarantor Name 06/02/2021 2 [place] [id number] Susan Kc [id number] Susan Kc 06/02/2021 2 [place] Susan Kc [id number] Susan Kc 10/09/2021 1 [employer] (POS) Nick Kc [id number] Susan Kc Notes Date Note Type Note Provider Name and Address Organization Details Recorded Time 02/14/2019 text/html Low back painReported bypatient.Onset:5 months Location:bilateral paraspinal; midline spine; radiating down the bilateral lower extremities to the feet; L>R Context:started without cause Quality:aching; constant; shooting Severity:moderate; current pain level: 6/10; worst pain level: 10/10 Alleviating Factors:lying down; heat; elevation Aggravating Factors:standing; lifting; bending/squatting; weightbearing Timing:constant; varies throughout the day Associated Symptoms:no weakness; no swelling; no popping/clicking; no bowel incontinence; no urinary retention; no urinary incontinence; no perineal paresthesia/anesthe cristino;numbness;tingli ng;pain radiating down leg Prior Imaging:Patient has the disc at todays visit. Previous Lumbar Surgery:none Previous Injections:none Previous PT:completed PT; weeks of PT completed: more than 6 weeks; response to therapy: no improvement in pain Medications History:neuropathic s: (Lyrica (not effective) Gabapentin (unable to tolerate)); Cymbalta (not effective) Work Related:no Working:regular duty Prior Pain Management:no Maruisz Cornejo MD [address] [place] [address], [phone], [facility] 02/14/2019 13:32:09 03/25/2021 text/html Low back painReported bypatient.Onset:5 months Location:bilateral paraspinal; midline spine; radiating down the bilateral lower extremities to the feet; L>R Context:started without cause Quality:aching; stabbing; constant; shooting Severity:moderate; current pain level: 7/10; worst pain level: 10/10 Alleviating Factors:lying down; heat Aggravating Factors:standing; lifting; bending/squatting; weightbearing Timing:constant; varies throughout the day Associated Symptoms:no weakness; no swelling; no popping/clicking; no bowel incontinence; no urinary retention; no urinary incontinence; no perineal paresthesia/anesthe cristino;numbness;tingli ng;pain radiating down lower extremities Prior Imaging:Patient has the disc at todays visit. Previous Lumbar Surgery:none Previous Injections:none Previous physical therapy:completed all recommended PT visits; more than 6 weeksweeks of PT completed; response to therapy: no improvement in pain Medications History:Neuropathic s: (Lyrica (not effective) Gabapentin (unable to tolerate)); Cymbalta (not effective) Prior Pain Management:no Patient had an injection on 02/28/2019 and she did not return to the office due to her having a stroke and she had to have a PFO repair and replacement . Patient does not remember the pain relief she got with the last injection. JUSTINA MCCLELLAND, INSTALLATION SUPERVISOR [address] [place], [address], [facility] 03/25/2021 11:35:28 10/12/2021 text/html Follow-up (meds & injections)Reported bypatient.Improveme nt:Pain is getting worse. Pain Scores:Average pain- 9/10; Current pain- 7/10; Worst pain- 10/10 Recent Injections:SI joint injection-; 04/22/2021 #1 Bilateral SI; 80-90% pain relief Current Analgesics:CP&S does not prescribe medications at this time. Pharmacy verified. 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.Onset:5 months Location:bilateral paraspinal; midline spine; radiating down the bilateral lower extremities to the feet; L>R Context:started without cause Quality:aching; stabbing; constant; shooting Severity:severe; current pain level: 7/10; average pain level: 9/10; worst pain level: 10/10 Alleviating Factors:lying down; heat Aggravating Factors:standing; lifting; bending/squatting; weightbearing Timing:constant; varies throughout the day Associated Symptoms:no weakness; no swelling; no popping/clicking; no bowel incontinence; no urinary retention; no urinary incontinence; no perineal paresthesia/anesthe cristino;numbness;tingli ng;pain radiating down lower extremities Prior Imaging:Patient has the disc at todays visit. 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 Medications History:Neuropathic s: (Lyrica (not effective) Gabapentin (unable to tolerate)); Opioid pain medications: (Tramadol); Cymbalta (not effective) Prior Pain Management:no Last office visit was 03/25/2021. Patient states she did have XR of right index finger since last visit and patient states she has f/u with ortho today. Patient was being prescribed Lyrica from soft sugar cutter but patient states this is not effective. Patient states she has some of these remaining at home. Patient was also prescribed Tramadol from PCP for pulled left shoulder but states she is not currently taking. Patient states she does have some of these remaining at home also. Patient states she would like to discuss options to relieve her pain today. Patient continues to take Aspirin 81mg daily. SANDY Plascencia [address] [place] [address], [phone], [facility] 10/12/2021 12:46:27 OBGyn Episode No OBEpisode recorded.
--- OUTSIDE RECORDS SUMMARY | 2025-05-02 10:16 | XMS_ITS | Patient Health Record ---
Author Organization 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 Name Role Phone Libertad Cary Unavailable [phone] Ivy Susan Unavailable [phone] Allergies Allergen (clinical drug ingredient) Drug/Non Drug Allergy documented on EMR Reaction Allergy Type Onset Date Status Shellfish (FN) SHELLFISH (uncoded) Unspecified Allergy Active Results Component Value Reference Range Notes MAMMO SCREENING DIGITAL ARIEL SYNTHESIS BILATERAL W CAD Reviewed date:07/11/2024 03:17:58 PM Interpretation:BIRAD 1 Negative, follow up in one year Performing Lab: Notes/Report: BILATERAL DIGITAL SCREENING MAMMOGRAM WITH TOMOSYNTHESIS CLINICAL INDICATION: Screening mammogram. TECHNIQUE: Bilateral low dose full field digital breast tomosynthesis imaging was performed. CAD was utilized. COMPARISON: Prior studies dating back to 09/06/2014 FINDINGS: There are scattered fibroglandular densities RIGHT BREAST: No suspicious masses, calcifications, or areas of distortion are seen. LEFT BREAST: No suspicious masses, calcifications, or areas of distortion are seen. No suspicious abnormality identified. OVERALL ASSESSMENT: ACR BI-RADS CATEGORY: 1, NEGATIVE: Recommend continued routine annual screening mammogram. The standard false-negative rate of mammography is between 10% and 25%. Complex patterns or increased breast density will markedly elevate the false-negative rate of mammography. A letter, in lay terminology, with the results of this exam will be mailed to the patient. This report was finalized on 07/11/2024 2:41 PM by Karen Mota MD. Signed by: Karen Mota MD on 07/11/2024 2:41 PM No problems, Reason for Exam:->z12.31 Reason For Referral No Information Medications Medication SIG (Take, Route, Frequency, Duration) Notes Start Date End Date Status Metoprolol Succinate ER Unknown Xyzal Unknown Nitroglycerin Unknow n Librax Unknown Vitamin D Unknown LORazepam Unknown Vitamin E Unknown Advair HFA Unknown Albuterol Unknown oxyBUTYnin Unknown Ativan Unknown rOPINIRole HCl ER Un known Omeprazole Unknown Estradiol 1 MG Tablet 1 tablet Orally On ce a day; Duration: 90 days Unknown Ursodiol Unknown Levocetirizine-Loratadine Unknown Vitamin B12 Unknown Dave Aspirin Unknow n Sucraid Unknown busPIRone HCl Unknow n Thyroid Unknown Social History Tobacco Use: Social History [...] Additional Findings: Tobacco Non-User Current no n-smoker Problems Problem Type SNOMED Code ICD Code Onset Dates Problem Status W/U Status Risk Notes Problem Urinary incontinence (851512227) Urinary incontinence (R32) Active confirmed Problem Localized morphea (814342347) *Lichen sclerosus et atrophicus, excludes female genitalia (L90.0) 018 Active confirmed Lichen sclerosis Problem Epimenorrhea (05229052) Epimenorrhea (N92.0) 014 Active confirmed MENORRHAGIA Problem Acute vulvitis (74565729) Acute vulvitis (N76.2) 012 Active confirmed VULVITIS Problem Gynecological examination normal (24551254872214 4) Cervical smear, as part of routine gynecological examination (Z01.419) 018 Active confirmed Annual without abnormal findings Problem Adult-onset obesity (197258080) Adult-onset obesity (E66.9) 010 Active confirmed OBESITY Problem Menopause (120784322) Vasomotor symptoms due to menopause (N95.1) Active confirmed Problem Pain in female genitalia on intercourse (99646892) Coitus painful for female (N94.10) 019 Active confirmed Unspecified dyspareunia Problem Adult health examination (625457482) Adult general medical exam (Z00.00) 012 Active confirmed ANNUAL EXAM Plan Of Treatment Next Appt Details Provider Name:Susan Haynes , 06/05/2025 11:15:00 AM, [address] [facility], [facility] [address], [place], [address], Insurance Providers Payer Name Payer Address Payer Phone Subscriber Number Group Number Insured Name Patient Relationship to Insured Coverage Start Date Coverage End Date [employer] [address] [place] [id number] [phone] [id number] Susan Kc Self - patient is the insured Medical (General) History Medical History History ICD Code fibrocystic breasts thyroid disease asthma acid reflux ibs migraines Hypothroidism migraines Diverticulosis Osteoarthritis fibromyalgia anxiety/depression PTSD stroke GERD hypertension liver disease thyroid disease lung problems Surgical History Surgery Date(Month/Year) Hysterectomy with BSO 2013 hysteroscopy, hand sx, colonoscopy L foot sx 11/04/16 PFO repair 05/2019 Right Knee
--- OUTSIDE RECORDS SUMMARY | 2025-05-02 10:16 | XMS_ITS | Data Portability ---
Author Organization CHERELLE BINDU Dotson [facility] Address [address] [facility] [address] [place] [address] Assessment Encounter Date Assessment Date Assessment LastModified by Organization Details LastModified Time 12/21/2021 12/21/2021 We reviewed the diagnosis of urolithiasis and options of management. She wishes to proceed with ureteroscopic stone extraction with stent placement. [email or web address] Not available 12/27/2021 16:05:03 12/29/2021 12/29/2021 DATE [...] Discharged home with instructions for outpatient follow-up. [email or web address] Not available 12/29/2021 16:48:20 Plan of Treatment Reminders Order Date Submit Date Provider Last Modified By Organization Details Last Modified Time Details Appointments RECHECK 2024 11:20A M TRIPP ROB MD Not available Not available Not available Lab urinalysi s panel, auto 2021 022 4 On License Of [facility], [address] [place] [address], [facility] [address], [place], [address], 12/27/2021 16:05:02 SARS CoV 2 ORF1ab region, QL, NUZHAT+probe , unspecifi ed specimen 2021 022 [id number] [facility], [address] [place], [address], 12/01/2022 03:37:12 Referral None recorded. Procedures None recorded. Surgeries cystoscop y, with ureterosc opy, with lithotrip sy, with insertion of ureteral stent (SURG) 2021 022 [email or web address] [facility]es, [address] [facility], [place], [address], 01/05/2022 09:35:07 Imaging None recorded. Medication Orders azelastin e 137 mcg (0.1 %) nasal spray 2024 025 Formerly [facility] [address] [place], [address], 03/08/2025 12:30:01 ipratropi um bromide 21 mcg (0.03 %) nasal spray 2024 025 [email or web address] [facility] [address], [address] [place], [address], 02/15/2025 11:06:30 hydrocodo ne 7.5 mg-acetam inophen 325 mg tablet 2021 022 spraria [facility] [address] [place], [address], 02/15/2025 10:44:34 cefdinir 300 mg capsule 2018 019 [email or web address] [facility] [address], [address] [place] [address], [address], 12/21/2021 16:49:07 Patient TargetsNo targets recorded. Patient Instructions Encounter Date Encounter Id Patient Instructions Last Modified By Organization Details Last Modified Time 02/06/2019 [id number] Acute Sinusitis: Care Instructions [email or web address] Not available [...] increase. [email or web address] Not available 02/07/2019 09:10:42 02/15/[id number] of sinus - to [...] now [email or web address] Not available 02/15/2025 11:03:42 03/08/2025 [id number] 1. Rx-azelastine nasal spray 1 sprays each [...] auto Unknown Analyte Clean Catch Not Available [facility] [address], [place], [address], 12/21/2021 16:53:09 12/21/19 22 12/21/2021 urina lysis panel , auto Unknown Analyte Yellow Not Available [facility] [address], [place], [address], 12/21/2021 16:53:09 12/21/19 22 12/21/2021 urina lysis panel , auto Unknown Analyte Clear Not Available [facility] [address], [place], [address], 12/21/2021 16:53:09 12/21/19 22 12/21/2021 urina lysis panel , auto Unknown Analyte 1.015 Not Available [facility] [address], [place], [address], 12/21/2021 16:53:09 12/21/19 22 12/21/2021 urina lysis panel , auto Unknown Analyte 1.003- 1.035 Not Available [facility] [address], [place], [address], 12/21/2021 16:53:09 12/21/19 22 12/21/2021 urina lysis panel , auto Unknown Analyte 6.0 Not Available [facility] [address], [place], [address], 12/21/2021 16:53:09 12/21/19 22 12/21/2021 urina lysis panel , auto Unknown Analyte 5.0-8. 0 Not Available [facility] [address], [place], [address], 12/21/2021 16:53:09 12/21/19 22 12/21/2021 urina lysis panel , auto Unknown Analyte Negati ve Not Available [facility] [address] [facility] [address], [place], [address], 12/21/2021 16:53:09 12/21/19 22 12/21/2021 urina lysis panel , auto Unknown Analyte Negati ve Not Available [facility] [address] [facility] [address], [place], [address], 12/21/2021 16:53:09 12/21/19 22 12/21/2021 urina lysis panel , auto Unknown Analyte Negati ve Not Available [facility] [address], [place], [address], 12/21/2021 16:53:09 12/21/19 22 12/21/2021 urina lysis panel , auto Unknown Analyte Negati ve Not Available [facility] [address], [place], [address], 12/21/2021 16:53:09 12/21/19 22 12/21/2021 urina lysis panel , auto Unknown Analyte Negati ve Not Available [facility] [address], [place], [address], 12/21/2021 16:53:09 12/21/19 22 12/21/2021 urina lysis panel , auto Unknown Analyte Negati ve Not Available [facility] [address], [place], [address], 12/21/2021 16:53:09 12/21/19 22 12/21/2021 urina lysis panel , auto Unknown Analyte Normal Not Available [facility] [address], [place], [address], 12/21/2021 16:53:09 12/21/19 22 12/21/2021 urina lysis panel , auto Unknown Analyte Normal Not Available [facility] [address], [place], [address], 12/21/2021 16:53:09 12/21/19 22 12/21/2021 urina lysis panel , auto Unknown Analyte Negati ve Not Available [facility] [address], [place], [address], 12/21/2021 16:53:09 12/21/19 22 12/21/2021 urina lysis panel , auto Unknown Analyte Negati ve Not Available [facility] [address], [place], [address], 12/21/2021 16:53:09 12/21/19 22 12/21/2021 urina lysis panel , auto Unknown Analyte Normal Not Available [facility] [address], [place], [address], 12/21/2021 16:53:09 12/21/19 22 12/21/2021 urina lysis panel , auto Unknown Analyte Normal 1 mg/dl Not Available [facility] [address], [place], [address], 12/21/2021 16:53:09 12/21/19 22 12/21/2021 urina lysis panel , auto Unknown Analyte Negati ve Not Available [facility] [address], [place], [address], 12/21/2021 16:53:09 12/21/19 22 12/21/2021 urina lysis panel , auto Unknown Analyte Negati ve Not Available [facility] [address], [place], [address], 12/21/2021 16:53:09 12/21/19 22 12/21/2021 urina lysis panel , auto Unknown Analyte 50 Paulino/ul Not Available [facility] [address] [facility] [address], [place], [address], 12/21/2021 16:53:09 12/21/19 22 12/21/2021 urina lysis panel , auto Unknown Analyte Negati ve Not Available [facility] [address] [facility] [address], [place], [address], 12/21/2021 16:53:09 12/25/19 22 12/28/2021 SARS- COV-1 9 RNA, PCR sars cov 2 result NEGATI VE negati ve normal Not Available [facility] [address] [place], [address], 12/28/2021 08:43:24 12/29/19 22 01/02/2022 STONE ANTONIO SIS composition SEE BELOW normal Calci um Oxala te Dihyd rate (Wedd ellit e) 20% Calci um Oxala te Monoh ydrat e (Whew ellit e) 80% See Note 1 Not Available [facility] [address] [place], [address], 01/02/2022 21:11:15 12/29/19 22 01/02/2022 STONE ANTONIO [...] RMED AT: [facility] [address] [place] [address] [place] Not Available [facility] [address] [place], [address], 01/02/2022 21:11:15 12/29/19 22 12/29/2021 urina lysis panel , auto Unknown Analyte Clean Catch Not Available [facility] Surgery Schedule [address] [place], [address], 12/29/2021 15:11:37 12/29/19 22 12/29/2021 urina lysis panel , auto Unknown Analyte Yellow Not Available [facility] Surgery Schedule [address] [place], [address], 12/29/2021 15:11:37 12/29/19 22 12/29/2021 urina lysis panel , auto Unknown Analyte Clear Not Available [facility] Surgery Schedule [address] [place], [address], 12/29/2021 15:11:37 12/29/19 22 12/29/2021 urina lysis panel , auto Unknown Analyte 1.020 Not Available [facility] Surgery Schedule [address] [place], [address], 12/29/2021 15:11:37 12/29/19 22 12/29/2021 urina lysis panel , auto Unknown Analyte 1.003- 1.035 Not Available [facility] Surgery Schedule [address] [place], [address], 12/29/2021 15:11:37 12/29/19 22 12/29/2021 urina lysis panel , auto Unknown Analyte 5.0 Not Available [facility] Surgery Schedule [address] [place], [address], 12/29/2021 15:11:37 12/29/19 22 12/29/2021 urina lysis panel , auto Unknown Analyte 5.0-8. 0 Not Available [facility] Surgery Schedule [address] [place], [address], 12/29/2021 15:11:37 12/29/19 22 12/29/2021 urina lysis panel , auto Unknown Analyte Negati ve Not Available [facility] Surgery Schedule [address] [place], [address], 12/29/2021 15:11:37 12/29/19 22 12/29/2021 urina lysis panel , auto Unknown Analyte Negati ve Not Available [facility] Surgery Schedule [address] [place], [address], 12/29/2021 15:11:37 12/29/19 22 12/29/2021 urina lysis panel , auto Unknown Analyte Negati ve Not Available [facility] Surgery Schedule [facility] [place], [address], 12/29/2021 15:11:37 12/29/19 22 12/29/2021 urina lysis panel , auto Unknown Analyte Negati ve Not Available [facility] Surgery Schedule [address] [place], [address], 12/29/2021 15:11:37 12/29/19 22 12/29/2021 urina lysis panel , auto Unknown Analyte Negati ve Not Available [facility] Surgery Schedule [address] [place], [address], 12/29/2021 15:11:37 12/29/19 22 12/29/2021 urina lysis panel , auto Unknown Analyte Negati ve Not Available [facility] Surgery Schedule [address] [place], [address], 12/29/2021 15:11:37 12/29/19 22 12/29/2021 urina lysis panel , auto Unknown Analyte Normal Not Available [facility] Surgery Schedule [address] [place], [address], 12/29/2021 15:11:37 12/29/19 22 12/29/2021 urina lysis panel , auto Unknown Analyte Normal Not Available [facility] Surgery Schedule [address] [place], [address], 12/29/2021 15:11:37 12/29/19 22 12/29/2021 urina lysis panel , auto Unknown Analyte Negati ve Not Available [facility] Surgery Schedule [address] [place], [address], 12/29/2021 15:11:37 12/29/19 22 12/29/2021 urina lysis panel , auto Unknown Analyte Negati ve Not Available [facility] Surgery Schedule [address] [place], [address], 12/29/2021 15:11:37 12/29/19 22 12/29/2021 urina lysis panel , auto Unknown Analyte Normal Not Available [facility] Surgery Schedule [address] [place], [address], 12/29/2021 15:11:37 12/29/19 22 12/29/2021 urina lysis panel , auto Unknown Analyte Normal 1 mg/dl Not Available [facility] Surgery Schedule [address] [place], [address], 12/29/2021 15:11:37 12/29/19 22 12/29/2021 urina lysis panel , auto Unknown Analyte Negati ve Not Available [facility] Surgery Schedule [address] [place], [address], 12/29/2021 15:11:37 12/29/19 22 12/29/2021 urina lysis panel , auto Unknown Analyte Negati ve Not Available [facility] Surgery Schedule [address] [place], [address], 12/29/2021 15:11:37 12/29/19 22 12/29/2021 urina lysis panel , auto Unknown Analyte Trace Not Available [facility] Surgery Schedule [address] [place], [address], 12/29/2021 15:11:37 12/29/19 22 12/29/2021 urina lysis panel , auto Unknown Analyte Negati ve Not Available [facility] Surgery Schedule [address] [facility], [place], [address], 12/29/2021 15:11:37 02/07/20 19 02/06/2019 CT, face, w/o contr ast [facility] [address] [place] [address] Patiramiro marshall Name: BRIAN marshall : 89 [...] Lim MD on 019 1:33 PM [email or web address] [facility] [address], [place], [address], 02/07/2019 08:51:58 12/21/[address], abdom en + pelvi s, w/ contr ast No observ ation record ed. [email or web address] [facility] (Radiology) [address] , [place], [address], 12/22/2021 10:22:25 03/01/20 25 03/01/2025 CT, maxil lofac ial, w/o contr ast [facility] [address] [place], [place] [id number] Patiramiro marshall Name: BRIAN marshall : 969 [...] boland MD on 025 9:59 AM INTERFACE [facility] [address] [place] [address], [address], 03/01/2025 10:04:33 Result Notes Documentation Provider Name and Address Organization Details Recorded Time Ct, Face, W/o Contrast : [facility] [address] [facility], [place] [address] Patient Name: SUSAN KING Patient : 1970 Patient Ordering Provider: DMITRIY MENA EXAM DATE: 02/06/2019 EXAM: CT LTD CORONAL SINUS HISTORY: Facial pain. Chronic sinusitis COMPARISON: None. TECHNIQUE: 3.0 mm direct coronal images were obtained through the paranasal sinuses. FINDINGS: Maxillary sinuses: There is no mucosal thickening in the maxillary sinuses. Ostia: The OMCs are patent and horizontally oriented and mildly narrowed. Ethmoid sinuses: Patchy bilateral ethmoid sinusitis sequela is present.. Frontal sinuses: Very mild mucosal thickening involving the frontal sinuses.. Sphenoid sinuses: Patchy inflammatory change in left aspect the sphenoid sinus is present.. Nasal septum and nasal passages: The nasal septum is mildly deviated to the left 2 mm.. There is moderate mucosal hypertrophy of the nasal turbinates. The visualized brain parenchyma appears normal. The orbits are normal in appearance. No parapharyngeal mass is identified. IMPRESSION: 1. Landa sinusitis sequela. The greatest site of involvement is left maxillary sinus Interpreted By: Nick Lim MD RIY MENA MD [address] [place] [address], [address], [facility] 02/07/2019 08:51:58 Ct, Maxillofacial, W/o Contrast : [facility] [address] [place] [address] Patient Name: SUSAN KING Patient : 1970 Patient Ordering Provider: TRIPP ROB EXAM DATE: 03/01/2025 EXAM: CT IMAGE GUIDED SINUS SCAN WO CONTRAST HISTORY: 54-year-old female with chronic sinusitis. COMPARISON: 02/06/2019 TECHNIQUE: 1.0 mm axial direct images were obtained, and axial, coronal, and sagittal reconstruction images were generated from the source images. FINDINGS: Maxillary sinuses: There is minimal mucosal thickening in the maxillary sinuses. Ostia: The left and right osteomeatal units, and frontal and sphenoid sinus ostia are patent. There is a patent secondary ostium along the medial wall the right maxillary sinus. Ethmoid sinuses: The ethmoid sinuses are clear. Frontal sinuses: The frontal sinuses are clear. Sphenoid sinuses: The sphenoid sinuses appear clear. Nasal septum and nasal passages: The nasal septum is deviated to the left anteriorly. There is severe mucosal hypertrophy of the nasal turbinates. The visualized brain parenchyma appears normal. There is bilateral cataract surgery. No parapharyngeal mass is identified. The visualized mastoid air cells appear normal. IMPRESSION: 1. There is severe mucosal hypertrophy of the nasal turbinates and nasal septal deviation to the left. 2. There is minimal mucosal thickening in the maxillary sinuses. Interpreted By: Ryan Coreas MD Not Available [facility] 03/01/2025 10:04:33 Problems No Known Problems Procedures Surgical History Date Name Laterality Status Provider Name and Address Organization Details Recorded Time 05/14/20 24 extraction of cataract completed [facility] 03/08/2025 11:14:19 05/14/20 24 closure of patent foramen ovale completed [facility] 03/08/2025 11:14:41 02/07/20 19 Review of Med Recs/Compl forms completed Libertad Orantes [facility] 02/06/2019 13:30:42 11/04/20 16 procedure on foot completed [facility] 02/06/2019 11:20:00 03/16/20 16 Unlisted px hands/fingers completed [facility] 02/06/2019 11:20:29 02/17/20 16 procedure on knee completed [facility] 02/06/2019 11:20:10 07/25/20 14 hysterectomy completed [facility] 02/06/2019 11:19:37 01/15/20 07 hysteroscopy completed [facility] 02/06/2019 11:19:50 adductor [facility] hip [facility] 11:15:30 Imaging Results None recorded. Procedure Notes None recorded. Medical Equipment None Reported. Allergies Allergen ID Allergen Name Allergen Category Reaction Reaction Severity Criticality Documentation Date Start Date Code Code System Note Provider Name and Address Organization Details Recorded Time 330924 Shellfish (substanc e) food,medi cation Not available Not available Not available 10/08/20162011 32971 9006 SNOMED Comme nt: Creat ed By: Virgilio motaCre ated Date: 012 1:15: 53 PM; Not Available [facility] 6 02:52:01 Medications Name Sig Start [...] Not Available Not Available No t Available [facility] 65 mg tablet 12/21 completed Not [...] completed Not Available Not Available Not Available [employer] Thyroid 60 mg tablet TAKE 2 TABLETS [...] Updated DateTime 12/21/2021 158.75 cm Hayde Shields [facility] 12/21/2021 16:48:24 Date Recorded Body weight Body mass index (BMI) Body height Body temperature Heart rate Systolic blood pressure Diastolic blood pressure Provider Name and Address Organization Details Last Updated DateTime 9 61992.4 7 g 37.9 kg/m2 160.02 cm 97.9 [degF] 80 /min 121 mm[Hg] 80 mm[Hg] Carol Ruffin [facility] 9 11:31:59 Date Recorded Body height Body mass index (BMI) Body weight Body temperature Heart rate Systolic blood pressure Diastolic blood pressure Provider Name and Address Organization Details Last Updated DateTime 5 157.48 cm 38.5 kg/m2 33024.2 g 97.4 [degF] 75 /min 113 mm[Hg] 69 mm[Hg] Arlin Prageri [facility] 5 10:21:34 Date Recorded Body height Body mass index (BMI) Body weight Body temperature Heart rate Systolic blood pressure Diastolic blood pressure Provider Name and Address Organization Details Last Updated DateTime 5 158.75 cm 37.8 kg/m2 82015.4 g 97.1 [degF] 68 /min 112 mm[Hg] 78 mm[Hg] Margarita Hodges [facility] 5 11:12:04 Social History Question Answer Notes LastModified by Organizat ion Details LastModified Time Tobacco Smoking Status Former Smoker Carol Ruffin [facility] 02/06/2019 11:16:18 What Is Your Level Of Caffeine Consumption? Occasional [email or web address] Information not available 03/08/2025 How Much Tobacco Do You Chew? None [email or web address] Information not available 02/06/2019 What Was The Date Of Your Most Recent Tobacco Screening? 02/06/2019 Information not available 01/01/2020 What Is Your Relationship Status? [email or web address] Information not available 12/21/2021 How Much Tobacco Do You Smoke? No [email or web address] Information not available 02/06/2019 Sex: Female Functional Status Question Answer Note LastModified by Organization D etails LastModified Time What is your level of alcohol consumption? None [email or web address] Information not available 02/06/2019 Mental Status None recorded. Family History Relationship Description Onset Age of this Age Resolved Age Notes LastModified by Organization Details LastModified Time Unspecified Relation Family history of malignant neoplasm [email or web address] Not available 2018 11:15:08 Father Hypertensive disorder [email or web address] Not available 2018 11:15:30 Father Heart disease Not available 2018 11:15:41 Mother Hypertensive disorder [email or web address] Not available 2018 11:15:30 Mother Diabetes mellitus [email or web address] Not available 2018 11:16:02 Brother Hypertensive disorder [email or web address] Not available 2018 11:15:30 Sister Hypertensive disorder [email or web address] Not available 2018 11:15:30 Sister Kidney disease [email or web address] Not available 2018 11:15:52 Medical History Condition [...] Pain Y Stomach trouble Y Heart Attack (PA) N Ulcers N Diabetes N Rheumatic Fever [...] SNOMED-CT Code Diagnosis ICD10 Code Diagnosis Note [id number] QM_[place] [address] 02/14/2017 19:48:06 02/14/2017 19:48:06 [id number] DMITRIY MENA MD [place] [facility] [address] [place] [address] 02/06/2019 10:30:59 02/06/2019 13:59:30 Chronic sinusitis 07567354 J32.9 Pain in face 51815968 R5 1 Migraine 09466664 G43.90 9 Fibromyalgia 520593440 M 79.7 Acute sinusitis 11727255 J01.90 [id number] DEA GARDUNO MD [facility] [address] [place] [address] 12/21/2021 14:38:11 12/21/2021 15:49:43 Ureteric stone 01304727 N20.1 Exposure t o SARS-CoV-2 277556794 Z20.822 Renal colic 1895555 N23 [id number] DEA GARDUNO MD SURGERY SCHEDULE [address] [place] [address] 12/29/2021 14:02:59 12/29/2021 14:03:25 Ureteric stone 69737853 N20.1 [id number] TRIPP ROB MD [place] [facility] [address] [facility] [place] [address] 02/15/2025 10:06:41 02/15/2025 11:23:37 Chronic sinusitis 31151631 J32.9 Fibromyalgia 067535024 M 79.7 Temporoman dibular joint disorder 18875577 M26.609 Ear pressu re sensation 921926894 H93.8X9 Chronic re current sinusitis 205064965 J32.9 Recurrent acute sinusitis 272420389 J01.91 Vasomotor rhinitis 14421 03 J30.0 Chronic rhinitis 4059591 6 J31.0 [id number] TRIPP ROB MD [place] [facility] [address] [facility] [place] [address] 03/08/2025 10:54:31 03/08/2025 13:07:02 Chronic recurrent sinusitis 833991964 J32.9 Ear pressu re sensation 841663840 H93.8X9 Chronic sinusitis 740634 00 J32.9 Recurrent acute sinusitis 936389847 J01.91 Fibromyalgia 816789745 M 78.7 Vasomotor rhinitis [address]007 03 J30.0 Chronic rhinitis [id number] J31.0 Health Concerns Section Related Observation LastModified by Organization Detai ls LastModified Time None Recorded Concern Status LastModified by Organization Details LastModified Time None Recorded Advance Directives Directive None Recorded Payers Insurance Date Sequence Insurance Name Policy Number Policy Lopez Covered Member ID Lopez Member ID Guarantor Name 12/29/2021 1 [place] [id number] Susan Sullivan De [id number] Susan Sullivan De 04/30/2025 2 [place] [id number] Nick Velasquez King [id number] Susan Sullivan De 04/20/2025 1 [place] Susan Sullivan De [id number] Susan Sullivan De 02/14/2025 1 [employer] (POS) Nick Eng De [id number] Susan Sullivan De Notes Date Note Type Note Provider Name [...] Susan does has fibromyalgia. DMITRIY MENA MD [address] [place], [address], [facility] 02/07/2019 09:13:16 12/21/2021 text/html 51-year-old fema le in the office for my initial evaluation and for discussion of urolithiasis. Pain began 1 week ago, right-sided. No prior episode of urolithiasis. No current pain today. CT abdomen and pelvis from [facility] shows a 6 mm stone near the right UPJ. DEA GARDUNO MD [address] [place] [address], [phone], [facility] 12/27/2021 16:05:47 02/15/2025 text/html Susan King (54F) visits our office for an evaluation [...] back regarding her results. TRIPP ROB MD [address] [place] [address], [phone], [facility] 02/15/2025 11:03:59 03/08/2025 text/html Susan visits [...] used for itchy/watery eyes. TRIPP ROB MD [address] [place] [address], [phone], [facility] 03/08/2025 11:47:08 OBGyn Episode No OBEpisode recorded.
--- NOTE | 2025-05-02 10:39 | EXP.PAIN.SOA ---
[facility] Disclaimer: The information contained in this section may have been updated after the patient was seen, as this information can be updated by other users. Medical History Shon's disease History of hypothyroidism History of diverticulosis Hx of osteoarthritis History of fibromyalgia Hx of acute hepatitis Hx of autoimmune disorder History of depression History of anxiety History of posttraumatic stress disorder (PTSD) Right knee meniscal tear Family history of patent foramen ovale Surgical History History of hand surgery History of hysteroscopy Hx of total hysterectomy Hx of colonoscopy History of tenotomy Hx of cataract surgery Social History Smoking Status: Never smoker alcohol intake: current alcohol intake frequency: a few times a month current occupational status: other Travel in the last 8 weeks?: None PM Subjective & Objective Subjective Subjective:: Patient is a pleasant 54-year-old female who presents today for insurance denial of her lumbar medial branch block. Today she rates her pain a 10 out of 10. Patient states that she is having severe pain all across to her hips and upper thighs. Patient states the pain is severe and she is not getting any sleep with this. She states that no position seems to be better. She states that she cannot sit stand or lay for prolonged periods due to the worsening pain in her low back and hips. Patient states that she would like to see about additional injections for this pain that she cannot get anything done due to it. Patient states she has trouble doing activities of daily living such as cooking and cleaning. Patient is prescribed methocarbamol 750 mg 3 times a day from our office. She denies any side effects. Her Sandeep has been reviewed and is appropriate. Review of Systems: General: No recent weight changes, no fever, no sleep disturbances Respiratory: No cough, no shortness of air, no recurring pulmonary infections Cardiovascular/peripheral vascular: No chest pain, no palpitations, no edema, no shortness of breath Gastrointestinal: No new onset incontinence, normal bowel movements reported Genitourinary: No new onset incontinence Musculoskeletal: Low back pain, bilateral hip pain Psychiatric: [Normal mood/affect] Neurological: [Denies weakness in extremities], [denies balance issues] Pain at rest (0-10 scale): 10 Objective Objective:: Physical Exam: General: Alert and oriented x3, no acute distress, pleasant and cooperative Lungs: Respirations even and unlabored, symmetrical chest expansion Eyes: PERRL Musculoskeletal: Flexion and extension of lumbar [spine] somewhat guarded secondary to pain, [antalgic gait noted] point tenderness along bilateral SIs with positive bilateral Adams's, Mandie's, Gaenslen's, compression and distraction exam Neurological: Speech clear, no gross sensory deficit Has patient had previous pain injection?: No Conservative treatment options previously tried: Home exercise plan Length of treatment: Longer than 12 weeks Meds Home Medications and Allergies Home Medications ?Medication ?Instructions ?Recorded ?Confirmed ?Type aspirin 81 mg tablet,delayed 81 mg PO DAILY 08/22/24 04/16/25 History release (Adult Low Dose Aspirin) atorvastatin 80 mg tablet 80 mg PO DAILY 08/22/24 04/16/25 History buspirone 30 mg tablet 30 mg PO BID 08/22/24 04/16/25 History cholecalciferol (vitamin D3) 25 25 mcg PO DAILY 08/22/24 04/16/25 History mcg (1,000 unit) capsule estradiol 1 mg tablet 1 mg PO DAILY 08/22/24 04/16/25 History ezetimibe 10 mg tablet 10 mg PO DAILY 08/22/24 04/16/25 History nitroglycerin 0.4 mg sublingual 0.4 mg sublingual Q5M PRN Chest 08/22/24 04/16/25 History tablet Pain omeprazole 20 mg capsule,delayed 20 mg PO DAILY #90 caps 08/22/24 04/16/25 Rx release oxybutynin chloride 10 mg 10 mg PO DIRECTED 08/22/24 04/16/25 History tablet,extended release 24 hr ropinirole 1 mg tablet 1 mg PO DAILY 08/22/24 04/16/25 History sacrosidase 8,500 unit/mL oral 2 ml PO 6XD #360 mL 08/22/24 04/16/25 Rx solution (Sucraid) thyroid (pork) 60 mg tablet (DIRECTOR OF EMERGENCY NURSING 120 mg PO DAILY 08/22/24 04/16/25 History Thyroid) ursodiol 500 mg tablet 500 mg PO DAILY 08/22/24 04/16/25 History methocarbamol 500 mg tablet 500 mg PO BID #28 tabs 02/20/25 04/16/25 Rx albuterol sulfate 90 mcg/actuation 1 inh inhalation QID 02/27/25 04/16/25 History aerosol inhaler cream base no.39 (bulk) (Versapro 0 applic topical . 02/27/25 04/16/25 History Cream Base topical) fluticasone propionate 45 2 puff inhalation BID 02/27/25 04/16/25 History mcg-salmeterol 21 mcg/actuation HFA inhaler (Advair HFA) levocetirizine 5 mg tablet 5 mg PO DAILY 02/27/25 04/16/25 History midodrine 5 mg tablet 5 mg PO BID 02/27/25 04/16/25 History montelukast 10 mg tablet 10 mg PO DAILY 02/27/25 04/16/25 History sertraline 100 mg tablet 100 mg PO DAILY 02/27/25 04/16/25 History methocarbamol 750 mg tablet 750 mg PO TID PRN muscle pain #90 04/16/25 Rx tabs New Prescriptions to Start Prescriptions: Allergies Allergy/AdvReac Type Severity Reaction Status Date / Time shellfish Allergy Severe Hives Uncoded 02/27/25 10:40 Assessment and Plan *Assessment and plan (1) Bilateral sacroiliitis: Status: Acute Category: Medical Code(s): M46.1 - Sacroiliitis, not elsewhere classified Plan Patient is experiencing a flareup with worsening pain along the low back and bilateral hips. They did have limited range of motion of the lumbar spine along with point tenderness along bilateral SI joints and a positive bilateral Adams's, Mandie's, Gaenslen's, compression and distraction exam. I did discuss with the patient that I do believe they would benefit from bilateral SI injections. Risk and benefits were discussed with the patient and they would like to proceed forward with this option. Patient has tried and failed conservative therapy. Patient has been actively doing conservative treatment including oral medication, heat and ice, topicals, at home exercising and stretching for longer than 12 weeks. Patient is having to adjust their activity based off the increased pain resulting in activity modification. I do believe the patient would benefit from SI injection. Patient has had her first set of diagnostic SI injections back in January and it did provide 80% relief lasting 24 hours. Patient was counseled that we will plan for a therapeutic set of SI injections with less than 1.5 mL of solution to be injected. If she does get substantial relief she may be a candidate for SI fusion at a later date. Patient will be scheduled for bilateral SI injections under fluoroscopy. We did also review over the denial reason regarding the lumbar medial branch blocks and we will follow-up with this in future however today she is not experiencing the same pain. I will make sure she has refills on her methocarbamol and send in a 5-day dose of prednisone 20 mg twice daily. Patient agrees with this plan of care. Patient has been instructed to contact the clinic with any concerns before the next appointment. Dr. Baker has reviewed this note and agrees with this plan of care. This note was dictated using voice recognition software and make contain errors or omissions. All injections are used with Lidocaine or Bupivacaine and dexamethasone unless diagnostic in which no steroids were injected.
[2025-05-02 11:19] VITALS: BP 111/73; PULSE 89; RESP 14; O2SAT 97; BMI 37.6
== END 2025-05-02 23:59 | disposition home or self-care (01) ==
PROVIDERS: PCP Nurse Practitioner Family; Visit Provider Nurse Practitioner Family
DX: M46.1 Sacroiliitis, not elsewhere classified (principal); Z79.899 Other long term (current) drug therapy
CPT/HCPCS: 99212; G0463

== ENCOUNTER 2025-05-10 10:11 | Outpatient (CLI) | payer MEDICARE, BC, SELFPAY ==
--- NOTE | 2025-05-10 10:16 | US_ITS ---
FINAL REPORT CLINICAL HISTORY: ABDMNL PAIN COMPARISON: None FINDINGS: ULTRASOUND ABDOMEN FINDINGS: There is fatty infiltration of the liver. Spleen has a normal sonographic appearance. No abnormality of the gallbladder is seen. No biliary ductal dilatation is identified. Kidneys show no evidence of mass or obstruction. Pancreas is not well visualized. IVC and aorta are grossly unremarkable. There is no obvious fluid collection. IMPRESSION: Fatty liver. Reviewed, Interpreted and Dictated by Elo Cuevas MD Transcribed by Josselyn Castro Authenticated and [facility]
--- OUTSIDE RECORDS SUMMARY | 2025-05-10 10:20 | XMS_ITS | Continuity of Care Document ---
Author Organization [facility], [place] [address] Address [address] [place] [address] Care Team Providers Care Fiscal Economist Name Role Phone ROCKY ANDERSON Primary Care Provider Assessment No assessment recorded. Plan of Treatment Reminders Order Date Submit Date Provider Last Modified By Organization Details Last Modified Time Details Appointments RECHECK 2024 12:00P M TRIPP ROB MD Not available Not available Not available Lab None recorded . Referral None recorded . Procedures None recorded . Surgeries None recorded . Imaging None recorded . Medication Orders None recorded . Patient TargetsNo targets recorded. Patient Instructions Encounter Date Encounter Id Patient Instructions Last Modified By Organization Details Last Modified Time 05/03/2025 [id number] 1. Recommend use of ipratropium bromide rinse QPM and azelastine QAM 2. Recommend use of nasal saline rinse 3. Recommend cessation of Azelastine when asymptomatic 4. F/u in six months [email or web address] Not available 05/03/2025 11:46:13 chronic rhinitis reasonably well controlled with daily xyzal, azelastine and atrovent; will hold off on updated allergy testing for now; encouraged her to use atrovent at bedtime and azelastine in the morning; also would be good to try some saline rinse; follow up in six months to check her progress [email or web address] Not available 05/03/2025 12:37:44 Reason for Referral None Reported. Problems No Known Problems Procedures Surgical History Date Name Laterality Status Provider Name and Address Organization Details Recorded Time 05/14/20 24 extraction of cataract completed Margarita Hodges [facility] 03/08/2025 11:14:19 07/01/20 24 closure of patent foramen ovale completed [facility] 03/08/2025 11:14:41 02/07/20 19 Review of Med Recs/Compl forms completed Libertad Orantes [facility] 02/06/2019 13:30:42 11/04/20 16 procedure on foot completed [facility] 02/06/2019 11:20:00 03/16/20 16 Unlisted px hands/fingers completed [facility] 02/06/2019 11:20:29 02/17/20 16 procedure on knee completed [facility] 02/06/2019 11:20:10 07/25/20 14 hysterectomy completed [facility] 02/06/2019 11:19:37 01/15/20 07 hysteroscopy completed [facility] 02/06/2019 11:19:50 adductor tenotomy of hip completed [facility] 03/08/2025 11:15:30 Imaging Results None recorded. Procedure Notes None recorded. Medical Equipment None Reported. Allergies Allergen ID Allergen Name Allergen Category Reaction Reaction Severity Criticality Documentation Date Start Date Code Code System Note Provider Name and Address Organization Details Recorded Time 104748 Shellfish (substanc e) food,medi cation Not available Not available Not available 10/08/20162011 97210 9006 SNOMED Comme nt: Creat ed By: Virgilio motaCre ated Date: 012 1:15: 53 PM; Not Available [facility] 6 02:52:01 Medications Name Sig Start [...] TAKE 1 TABLET BY MOUTH TWICE DAILY 05/03 completed Not Available Not Available Not Available [...] TAKE 1 TABLET DAILY ON DAYS 2-5 05/03 completed Not Available Not Available Not Available metoprolo l succinate ER 50 mg [...] NEEDED FOR NAUSEA AND OR VOMITING . 05/03 completed Not Available Not Available Not Available prednison e 20 mg tablet 02/06 [...] Available Not Kimberly ilable Not Available baclofen 05/03 completed Not Available Not Available Not Available fluticaso ne propionat e 45 [...] Not Available Not Available No t Available On License Of [facility] 65 mg tablet 12/21 [...] completed Not Available Not Available Not Available SURGICAL ORDERLY Thyroid 60 mg tablet TAKE 2 TABLETS [...] Not Available No t Available Fluarix Quad 8245-7776 (PF) 60 mcg (15 mcg x 4)/0.5 [...] Details Last Updated DateTime 5 158.75 cm 37.6 kg/m2 50678.8 1 g 97.2 [degF] 79 /min 111 mm[Hg] 81 mm[Hg] Darren Vazquez [facility] 5 11:07:35 Social History Question Answer Notes LastModified by Organizat ion Details LastModified Time Tobacco Smoking Status Former Smoker Carol Ruffinrichard long, [facility] 02/06/2019 11:16:18 What Is Your Level Of Caffeine Consumption? Occasional [email or web address] Information not available 03/08/2025 How Much Tobacco Do You Chew? None [email or web address] Information not available 02/06/2019 What Was The Date Of Your Most Recent Tobacco Screening? 02/06/2019 Information not available 01/01/2020 What Is Your Relationship Status? [email or web address] Information not available 12/21/2021 How Much Tobacco Do You Smoke? No [email or web address] Information not available 02/06/2019 Sex: Female Functional Status Question Answer Note LastModified by Organization D etails LastModified Time What is your level of alcohol consumption? None [email or web address] Information not available 02/06/2019 Mental Status None recorded. Family History Relationship Description Onset Age of this Age Resolved Age Notes LastModified by Organization Details LastModified Time Unspecified Relation Family history of malignant neoplasm [email or web address] Not available 2018 11:15:08 Father Hypertensive disorder [email or web address] Not available 2018 11:15:30 Father Heart disease [email or web address] Not available 2018 11:15:41 Mother Hypertensive disorder [email or web address] Not available 2018 11:15:30 Mother Diabetes mellitus [email or web address] Not available 2018 11:16:02 Brother Hypertensive disorder [email or web address] Not available 2018 11:15:30 Sister Hypertensive disorder Not available 2018 11:15:30 Sister Kidney disease [email or web address] Not available 2018 11:15:52 Medical History Condition Response Kidney Stones Y Hyperthyroidism N Heart Arrhythmia N Emphysema N Esophagus/swallowing troubles N Glaucoma N Depression Y Hypothyroidism Y Lung Disease N Anesthesia Complications N Anxiety Disorder Y [...] Stomach trouble Y Ulcers N Heart Attack (NE) N Diabetes N Rheumatic Fever N Bleeding [...] SNOMED-CT Code Diagnosis ICD10 Code Diagnosis Note [id number] TRIPP ROB MD [place] [facility] [address] [place] [address] 05/03/2025 10:36:48 05/03/2025 13:03:10 Chronic recurrent sinusitis 371613615 J32.9 Ear pressu re sensation 750699119 H93.8X9 Chronic sinusitis 542996 00 J32.9 Recurrent acute sinusitis 922895404 J01.91 Fibromyalgia 828274882 M 79.7 Vasomotor rhinitis 44998 03 J30.0 Chronic rhinitis 0404832 6 J31.0 Temporoman dibular vhjei-zgve-zlbwkxatkv n syndrome 272334742 M26.629 Health Concerns Section Related Observation LastModified by Organization Detai ls LastModified Time None Recorded Concern Status LastModified by Organization Details LastModified Time None Recorded Payers Encounter Date Sequence Insurance Name Policy Number Policy Lopez Covered Member ID Lopez Member ID Guarantor Name 05/03/2025 2 [employer] [id number] 1 Nick Eng De [id number] Susan Sullivan De 05/03/2025 1 [place] Susan Sullivan Kc [id number] Susan Sullivan De Notes Date Note Type Note Provider Name and Address Organization Details Recorded Time 05/03/2025 text/html Susan visits us in office today to follow up on vasomotor rhinitis. She is still having sinus problems but is confident this is due to hay season. Susan feels her allergies have flared a bit and she is congested. She feels her ears are clogged at this time. TRIPP ROB MD [facility] [place], [address], [facility] 05/03/2025 12:38:00 OBGyn Episode No OBEpisode recorded.
--- OUTSIDE RECORDS SUMMARY | 2025-05-10 10:20 | XMS_ITS | Data Portability ---
Author Organization [facility] Address [address] [facility] [address] [place] [address] Care Team Providers Care Sql Etl Developer Name Role Phone SUNITA ALMANZA Primary Care [...] no inciting event. 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 [email or web address] Not available 02/14/2019 13:31:33 03/25/2021 03/25/2021 This [...] her MRI. No medications were provided today. [email or web address] Not available 03/25/2021 08:50:17 10/12/2021 10/12/2021 Ms. [...] she will return to clinic with a hyster driver for this recommended procedure. Her ORT score is 0 indicating low risk. [email or web address] Not available 10/12/2021 12:09:52 Plan of Treatment Reminders Order Date Submit Date Provider Last Modified By Organization Details Last Modified Time Details Appointments None recorded. Lab drug screen, urine 2020 021 [email or web address] [place], [facility] [address], [place], [address], 11:35:15 unlisted lab - confirm new patient 2020 021 [facility], [facility], [address] [place] [address], [address], 14:45:53 drug screen, urine 2018 019 bgish [place], [address], [place], [address], 9 13:32:05 Referral aquatic therapy referral 2018 019 [email or web address] Not available 9 08:32:05 Procedures medial branch block, lumbar (PROC) 2020 021 [email or web address] 2 Not available 2 07:56:36 injection, sacroiliac joint (PROC) - #2 Bilateral SI in 4 weeks [facility] 2020 021 [email or web address] Not available 1 08:36:50 sacroiliac joint injection (PROC) 2020 021 [email or web address] 2 Not available 1 10:29:07 injection, sacroiliac joint (PROC) 2018 019 [email or web address] Not available 9 15:49:42 Surgeries None recorded. Imaging None recorded. Medication Orders None recorded. Patient TargetsNo targets recorded. Patient Instructions Encounter Date Encounter Id Patient Instructions Last Modified By Organization Details Last Modified Time 02/14/2019 [id number] medical record request* - requesting lumbar MRI at [place] [facility] MICHELLE Not available 02/14/2019 14:24:15 Reason for Referral Aquatic Therapy Referral for Inflammation of sacroiliac joint Referring Physician: Mariusz Cornejo, Pain Management, Encounter Date: 02/14/2019 Results Created Date Observation Date Name Description Value Unit Range Abnormal Flag Note LastModifiedBy Organization Detail LastModifiedTime 02/15/2002/14/2019 drug scree n, urine THC: negati ve Not Available [place] [address], [place], [address], 02/14/2019 13:15:27 02/15/2002/14/2019 drug scree n, urine Buprenorphin e: negati ve Not Available [place] [address], [place], [address], 02/14/2019 13:15:27 02/15/2002/14/2019 drug scree n, urine TCA: negati ve Not Available [place] [address], [place], [address], 02/14/2019 13:15:27 02/15/20 19 02/14/2019 drug scree n, urine Barbiturates : negati ve Not Available [place] [address], [place], [address], 02/14/2019 13:15:27 02/15/20 19 02/14/2019 drug scree n, urine Benzodiazepi india: positi ve Not Available [place] [address], [place], [address], 02/14/2019 13:15:27 02/15/20 19 02/14/2019 drug scree n, urine Methadone: negati ve Not Available [address], [place], [address], 02/14/2019 13:15:27 02/15/20 19 02/14/2019 drug scree n, urine Amphetamines : negati ve Not Available [address], [place], [address], 02/14/2019 13:15:27 02/15/20 19 02/14/2019 drug scree n, urine Morphine/Opi ates: negati ve Not Available [address], [place], [address], 02/14/2019 13:15:27 02/15/20 19 02/14/2019 drug scree n, urine Oxycodone: negati ve Not Available [address], [place], [address], 02/14/2019 13:15:27 02/15/20 19 02/14/2019 drug scree n, urine MDMA: negati ve Not Available [place] [address], [place], [address], 02/14/2019 13:15:27 02/15/20 19 02/14/2019 drug scree n, urine Cocaine: negati ve Not Available [address], [place], [address], 02/14/2019 13:15:27 02/15/20 19 02/14/2019 drug scree n, urine Methamphetam ine: negati ve Not Available [place] [address], [place], [address], 02/14/2019 13:15:27 02/16/20 19 02/15/2019 drug confi rmati on, urine abnormal status abnormal Not Available [facility], [address], [address], 02/23/2019 08:57:59 02/16/20 19 02/15/2019 speci men valid ity testi ng urine creatinine 228 mg/dL 44-355 normal [facility] [[email or web address]] ribed Medic ation s: Katie a (Preg abali n) Not Available [facility], [address], [address], 02/23/2019 08:57:58 02/16/20 19 02/15/2019 ssri citalopram Not Detect ed NG/mL 75 normal Not Available [facility], [address], [address], 02/23/2019 08:57:58 02/16/20 19 02/15/2019 ssri N-desmethylc italopram Not Detect ed NG/mL 75 normal Not Available [facility], [address], [address], 02/23/2019 08:57:58 02/16/20 19 02/15/2019 ssri fluoxetine Not Detect ed NG/mL 75 normal Not Available [facility], [address], [address], 02/23/2019 08:57:58 02/16/20 19 02/15/2019 ssri norfluoxetin e Not Detect ed NG/mL 75 normal Not Available [facility], [address], [address], 02/23/2019 08:57:58 02/16/20 19 02/15/2019 ssri paroxetine Not Detect ed NG/mL 75 normal Not Available [facility], [address], [address], 02/23/2019 08:57:58 02/16/20 19 02/15/2019 ssri sertraline Not Detect ed NG/mL 75 normal Pres ribed Medic ation s: Katie a (Preg abali n) Not Available [facility], [facility], [address], [address], 02/23/2019 08:57:58 02/16/20 19 02/15/2019 amphe tamin es D/L - amphetamine Not Detect ed NG/mL 75 normal Not Available [facility], [address], [address], 02/23/2019 08:57:57 02/16/20 19 02/15/2019 amphe tamin es D/L - methamphetam ine Not Detect ed NG/mL 75 normal Not Available [facility], [address], [address], 02/23/2019 08:57:57 02/16/20 19 02/15/2019 amphe tamin es ritalinic acid Not Detect ed NG/mL 75 normal Pres ribed Medic ation s: Katie a (Preg abali n) Not Available [facility], [facility], [address], [address], 02/23/2019 08:57:57 02/16/2002/15/2019 wen turat es butalbital Not Detect ed NG/mL 150 normal Not Available [facility], [address], [address], 02/23/2019 08:57:57 02/16/20 19 02/15/2019 wen turat es phenobarbita l Not Detect ed NG/mL 150 normal Pres ribed Medic ation s: Katie a (Preg abali n) Not Available [facility], [facility], [address], [address], 02/23/2019 08:57:57 02/16/20 19 02/15/2019 thera peuti c drugs carisoprodol -soma Not Detect ed NG/mL 75 normal Not Available [facility], [address], [address], 02/23/2019 08:57:56 02/16/20 19 02/15/2019 thera peuti c drugs meprobamate Not Detect ed NG/mL 75 normal Pres ribed Medic ation s: Katie a (Preg abali n) Not Available [facility], [address], [address], 02/23/2019 08:57:56 02/16/20 19 02/15/2019 benzo diaze pines 7-aminoclona zepam Not Detect ed NG/mL 60 normal Not Available [facility], [address], [address], 02/23/2019 08:57:56 02/16/20 19 02/15/2019 benzo diaze pines alprazolam Not Detect ed NG/mL 60 normal Not Available [facility], [address], [address], 02/23/2019 08:57:56 02/16/20 19 02/15/2019 benzo diaze pines alpha-hydrox yalprazolam Not Detect ed NG/mL 60 normal Not Available [facility], [address], [address], 02/23/2019 08:57:56 02/16/20 19 02/15/2019 benzo diaze pines lorazepam Not Detect ed NG/mL 60 normal Not Available [facility], [address], [address], 02/23/2019 08:57:56 02/16/20 19 02/15/2019 benzo diaze pines nordiazepam Not Detect ed NG/mL 60 normal Not Available [facility], [address], [address], 02/23/2019 08:57:56 02/16/20 19 02/15/2019 benzo diaze pines oxazepam 87 POSITI VE NG/mL 60 abnormal Not Available [facility], [address], [address], 02/23/2019 08:57:56 02/16/20 19 02/15/2019 benzo diaze pines temazepam Not Detect ed NG/mL 60 normal Pres ribed Medic ation s: Katie a (Preg abali n) Not Available [facility], [address], [address], 02/23/2019 08:57:56 02/16/20 19 02/15/2019 sheri analo gs gabapentin Not Detect ed NG/mL 225 normal Not Available [facility], [address], [address], 02/23/2019 08:57:55 02/16/2002/15/2019 sheri analo gs pregabalin POSITI VE>150 00 NG/mL 225 normal Not Available [facility], [address], [address], 02/23/2019 08:57:55 02/16/2002/15/2019 sheri analo gs zaleplon Not Detect ed NG/mL 7.5 normal Not Available [facility], [address], [address], 02/23/2019 08:57:55 02/16/20 19 02/15/2019 sheri analo gs zolpidem Not Detect ed NG/mL 75 normal Presc ribed Medic ation s: Katie a (Preg abali n) Not Available [facility], [address], [address], 02/23/2019 08:57:55 02/16/20 19 02/15/[address] antag buprenorphin e Not Detect ed NG/mL 7.5 normal Not Available [facility], [address], [address], 02/23/2019 08:57:55 02/16/20 19 02/15/[address] antag norbuprenorp jodie Not Detect ed NG/mL 37.5 normal Not Available [facility], [address], [address], 02/23/2019 08:57:55 02/16/20 19 02/15/[address] antag naloxone Not Detect ed NG/mL 75 normal Not Available [facility], [address], [address], 02/23/2019 08:57:55 02/16/20 19 02/15/[address] antag pentazocine Not Detect ed NG/mL 22.5 normal Pres ribed Medic ation s: Katie a (Preg abali n) Not Available [facility], [address], [address], 02/23/2019 08:57:55 02/16/20 19 02/15/2019 opiat es/op ioids codeine Not Detect ed NG/mL 75 normal Not Available [facility], [address], [address], 02/23/2019 08:57:54 02/16/20 19 02/15/2019 opiat es/op ioids fentanyl Not Detect ed NG/mL 6 normal Not Available [facility], [address], [address], 02/23/2019 08:57:54 02/16/20 19 02/15/2019 opiat es/op ioids norfentanyl Not Detect ed NG/mL 6 normal Not Available [facility], [address], [address], 02/23/2019 08:57:54 02/16/20 19 02/15/2019 opiat es/op ioids morphine Not Detect ed NG/mL 75 normal Not Available [facility], [address], [address], 02/23/2019 08:57:54 02/16/20 19 02/15/2019 opiat es/op ioids hydrocodone Not Detect ed NG/mL 75 normal Not Available [facility], [address], [address], 02/23/2019 08:57:54 02/16/20 19 02/15/2019 opiat es/op ioids norhydrocodo ne Not Detect ed NG/mL 75 normal Not Available [facility], [address], [address], 02/23/2019 08:57:54 02/16/20 19 02/15/2019 opiat es/op ioids hydromorphon e Not Detect ed NG/mL 75 normal Not Available [facility], [address], [address], 02/23/2019 08:57:54 02/16/20 19 02/15/2019 opiat es/op ioids oxycodone Not Detect ed NG/mL 37.5 normal Not Available [facility], [address], [address], 02/23/2019 08:57:54 02/16/20 19 02/15/2019 opiat es/op ioids noroxycodone Not Detect ed NG/mL 37.5 normal Not Available [facility], [address], [address], 02/23/2019 08:57:54 02/16/20 19 02/15/2019 opiat es/op ioids oxymorphone Not Detect ed NG/mL 75 normal Not Available [facility], [address], [address], 02/23/2019 08:57:54 02/16/20 19 02/15/2019 opiat es/op ioids meperidine Not Detect ed NG/mL 37.5 normal Not Available [facility], [address], [address], 02/23/2019 08:57:54 02/16/20 19 02/15/2019 opiat es/op ioids normeperidin e Not Detect ed NG/mL 37.5 normal Not Available [facility], [address], [address], 02/23/2019 08:57:54 02/16/20 19 02/15/2019 opiat es/op ioids methadone Not Detect ed NG/mL 75 normal Not Available [facility], [address], [address], 02/23/2019 08:57:54 02/16/20 19 02/15/2019 opiat es/op ioids methadone (EDDP) Not Detect ed NG/mL 75 normal Not Available [facility], [address], [address], 02/23/2019 08:57:54 02/16/20 19 02/15/2019 opiat es/op ioids propoxyphene Not Detect ed NG/mL 75 normal Not Available [facility], [address], [address], 02/23/2019 08:57:54 02/16/20 19 02/15/2019 opiat es/op ioids norpropoxyph leighton Not Detect ed NG/mL 75 normal Not Available [facility], [address], [address], 02/23/2019 08:57:54 02/16/20 19 02/15/2019 opiat es/op ioids tapentadol Not Detect ed NG/mL 37.5 normal Not Available [facility], [address], [address], 02/23/2019 08:57:54 02/16/20 19 02/15/2019 opiat es/op ioids tramadol Not Detect ed NG/mL 75 normal Not Available [facility], [address], [address], 02/23/2019 08:57:54 02/16/20 19 02/15/2019 opiat es/op ioids Y-ehk-jeoklv -cis-tramado l Not Detect ed NG/mL 75 normal Presc ribed Medic ation s: Katie a (Preg abali n) Not Available [facility], [address], [address], 02/23/2019 08:57:54 02/16/20 19 02/15/2019 drug confi rmati on, urine comment: See Compon ents normal Presc ribed Medic ation s: Katie a (Preg abali n) Not Available [facility], [facility], [address], [address], 02/23/2019 08:57:53 03/25/20 21 03/25/2021 drug scree n, urine THC: negati ve Not Available [place] [address], [place], [address], 03/25/2021 08:33:59 03/25/20 21 03/25/2021 drug scree n, urine Buprenorphin e: negati ve Not Available [place] [address], [place], [address], 03/25/2021 08:33:59 03/25/20 21 03/25/2021 drug scree n, urine TCA: negati ve Not Available [place] [address], [place], [address], 03/25/2021 08:33:59 03/25/20 21 03/25/2021 drug scree n, urine Barbiturates : negati ve Not Available [place] [address], [place], [address], 03/25/2021 08:33:59 03/25/20 21 03/25/2021 drug scree n, urine Benzodiazepi ind[place]: positi ve Not Available [place] [address], [place], [address], 03/25/2021 08:33:59 03/25/20 21 03/25/2021 drug scree n, urine Methadone: negati ve Not Available [place] [address], [place], [address], 03/25/2021 08:33:59 03/25/20 21 03/25/2021 drug scree n, urine Amphetamines : negati ve Not Available [place] [address], [place], [address], 03/25/2021 08:33:59 03/25/20 21 03/25/2021 drug scree n, urine Morphine/Opi ates: negati ve Not Available [place] [address], [place], [address], 03/25/2021 08:33:59 03/25/20 21 03/25/2021 drug scree n, urine Oxycodone: negati ve Not Available [place] [address], [place], [address], 03/25/2021 08:33:59 03/25/20 21 03/25/2021 drug scree n, urine MDMA: negati ve Not Available [place] [address], [place], [address], 03/25/2021 08:33:59 03/25/20 21 03/25/2021 drug scree n, urine Cocaine: negati ve Not Available [place] [address], [place], [address], 03/25/2021 08:33:59 03/25/20 21 03/25/2021 drug scree n, urine Methamphetam ine: negati ve Not Available [place] [address], [place], [address], 03/25/2021 08:33:59 02/15/20 19 01/10/2019 medic al recor d reque st* No observ ation record ed. [email or web address] Not Available 2018 14:02:16 02/15/20 19 01/10/2019 MRI, lumba r spine , w/o contr ast No observ ation record ed. [email or web address] Not Available 2018 14:02:16 Result Notes None recorded. Problems Name Problem SNOMED Code Status Onset Date Resolution Date Notes Provider Name and Address Organization Details Recorded Time Low back pain 523563171 Active 2018 Alem long, [facility] 9 12:56:46 Piriformis syndrome 726357945 Active 2018 Mariusz Cornejo MD [address] [place] [address], [address] , Counts include 234 beds at the [facility] 9 13:29:23 Long-term drug therapy Active 2018 Mariusz Cornejo MD [address] [place] [address], [address] , Counts include 234 beds at the [facility] 9 13:29:24 Inflammation of sacroiliac joint 76393517 Active 2018 Mariusz Cornejo MD [address] [place] [address], [address] , [facility] 9 13:29:25 Lumbar spondylosis 453342342 Active 2020 SANDY Plascencia [address], [place], [address] , [facility] 10:57:02 Problem Notes None recorded. Procedures Surgical History Date Name Laterality Status Provider Name and Address Organization Details Recorded Time 04/22/20 21 SI Joint Injection (Fluoro) completed Lizzy Calix [facility] 04/22/2021 10:02:50 02/29/20 19 SI Joint Injection (Fluoro) completed Shirin Ruffin [facility] 02/28/2019 12:01:04 Knee Surgery completed Alemmagdaleno Wallace [facility] 02/14/2019 12:52:11 Foot/Ankle Surgery completed Alemmagdaleno KilgoreWallace [facility] 02/14/2019 12:52:11 Hysterectomy completed Alemmagdaleno KilgoreWallace [facility] 02/14/2019 12:57:22 Imaging Results None recorded. Procedure [...] completed Not Available Not Available Not Available DIRECTOR OF INTELLIGENCE Thyroid 60 mg tablet TAKE 2 & [...] Available Not Available Not Available Fluarix Quad 2089-3290 (PF) 60 mcg (15 mcg x 4)/0.5 mL IM syringe 02/14 completed Not Available Not Available Not Available Vitals Date Recorded Body weight Body mass index (BMI) Body height Oxygen saturation Oxygen saturation in Arterial blood by Pulse oximetry Heart rate Systolic blood pressure Diastolic blood pressure Provider Name and Address Organization Details Last Updated DateTime 9 22430.1 7 g 38.3 kg/m2 158.75 cm 98 % 98 % 80 /min 128 mm[Hg] 96 mm[Hg] Alem Wallace [facility] 9 13:07:10 Date Recorded Body weight Body mass index (BMI) Body height Provider Name and Address Organization Details Last Updated DateTime 03/25/2021 80026.17 g 38.3 kg/m2 158.75 cm rochelle vieira [facility] 03/25/2021 08:13:32 Date Recorded Body height Body mass index (BMI) Body weight Provider Name and Address Organization Details Last Updated DateTime 10/12/2021 158.75 cm 38.3 kg/m2 47062.17 g Es Holman [facility] 10/12/2021 10:27:38 Social History Question Answer Notes LastModified by Organizat ion Details LastModified Time Tobacco Smoking Status Former Smoker Alem long [facility] 02/14/2019 12:52:07 What Is Your Level Of Caffeine Consumption? Moderate Information not available 02/14/2019 How Much Tobacco Do You Chew? None [email or web address] Information not available 02/14/2019 Are You Deaf Or Do You Have Serious Difficulty Hearing? No Information not available 02/14/2019 Hard Of Hearing Or Deaf In One Or Both Ears? No [email or web address] Information not available 02/14/2019 Marital Status [email or web address] Informati on not available 02/14/2019 What Was The Date Of Your Most Recent Tobacco Screening? 02/14/2019 [email or web address] Information not available 03/25/2021 General Stress Level Medium [email or web address] Information not available 02/14/2019 Do You Have Difficulty Walking Or Climbing Stairs? Yes [email or web address] Information not available 02/14/2019 Sex: Unknown Functional Status Question Answer Note LastModified by Organizat ion Details LastModified Time What is your level of alcohol consumption? Occasional [email or web address] Information not available 02/14/2019 Are you currently employed? Yes [email or web address] Information not available 10/12/2021 Are you able to walk? YESWOREST [email or web address] Information not available 02/14/2019 Do you have difficulty doing errands alone? Yes [email or web address] Information not available 02/14/2019 Do you have difficulty dressing or bathing? Yes [email or web address] Information not available 02/14/2019 What is your exercise level? None [email or web address] Information not available 10/12/2021 Mental Status Question Answer Note LastModified by Organization D etails LastModified Time Do you have difficulty concentrating, remembering or making decisions? Yes [email or web address] Information no t available 02/14/2019 Family History [...] Bipolar Disease N Coronary Artery Disease N Gout N Seizure Disorder N Thyroid Disease Y Atrial Fibrillation N Hernia N Head Trauma/Injury N COPD N Depression N Anxiety Disorder N Acid Reflux (GERD) Y Cancer N Skin Disorder N Stroke N High Cholesterol N Liver Disease N Rheumatoid Arthritis N Fibromyalgia Y Headaches Y Autoimmune Disease Y Kidney Disease N Osteoarthritis Y Neurosurgery N DVT N Peptic Ulcer Disease N Anemia N Heart Attack (RI) N Diabetes N Cardiomyopathy N Bleeding Disorder [...] SNOMED-CT Code Diagnosis ICD10 Code Diagnosis Note [id number] Mariusz Cornejo MD [place] [address] [place] [address] 02/14/2019 12:08:04 02/14/2019 13:32:14 Long-term drug therapy 456844608 Z79.899 The preliminar y urine drug screen is positive for a medication class that the patient is not prescribed and denies taking. The sample is being sent for quantitati ve, LCMS analysis to confirm the presents of this medication /metabolit es and to rule out a possible false positive. Inflammati on of sacroiliac joint 32917451 M46.1 Piriformis syndrome 1291 [address]65 G57.03 Fibromyalgia 004078510 M 79.7 [id number] Mariusz Cornejo MD [place] [address] [place] [address] 02/28/2019 10:58:06 02/28/2019 12:03:03 Inflammation of sacroiliac joint 81918778 M46.1 [id number] Mariusz Cornejo MD [place] [address] [place] [address] 03/25/2021 08:00:17 03/25/2021 08:53:14 Inflammation of sacroiliac joint 84929716 M46.1 Piriformis syndrome 1291 [address] G57.03 Long-term drug therapy 767110009 Z79.899 The urine sample is being sent [...] prescribed or reported by the patient. Fibromyalgia 459930859 M 79.7 [id number] Mariusz Cornejo MD [place] [address] [address] [place] [address] 04/22/2021 08:38:45 04/22/2021 09:54:16 Inflammation of sacroiliac joint 92312731 M46.1 [id number] Mariusz Cornejo MD [place] [address] [place] [address] 10/12/2021 10:23:49 10/12/2021 11:20:27 Lumbar spondylosis [id number] M47.816 The recommende d procedure is discussed [...] ID Guarantor Name 06/02/2021 2 [place] [id number] Susan Kc [id number] Susan Kc 06/02/2021 2 [place] Susan Kc [id number] Susan Kc 10/09/2021 1 [employer] (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 JUSTINA MCCLELLAND, [address] [place], [address], Counts include 234 beds at the [facility] 03/25/2021 11:35:28 10/12/2021 text/html Follow-up (meds & injections)Reported bypatient.Improveme nt:Pain is getting worse. Pain Scores:Average pain- 9/10; Current pain- 7/10; Worst pain- 10/10 Recent Injections:SI joint injection-; 04/22/2021 #1 Bilateral SI; 80-90% pain relief Current Analgesics:CP&S does not prescribe medications at this time. Pharmacy verified. 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 Patient was being prescribed Lyrica from truck driver but patient states this is not effective. [...] to take Aspirin 81mg daily. SANDY Plascencia [address] [place] [address], [phone], Counts include 234 beds at the [facility] 10/12/2021 12:46:27 OBGyn Episode No OBEpisode recorded.
--- OUTSIDE RECORDS SUMMARY | 2025-05-10 10:20 | XMS_ITS | Data Portability ---
Author Organization [facility] [place] [facility] Address [address] [place] [address] Care Team Providers Care Distribution Driver Name Role Phone [facility] Primary Care Yayo luong Assessment [...] Organization Details Recorded Time Sensorineural hearing loss 87912747 Active 2023 ADWOA MORATAYA [address] , [place], [address] , [facility] [place] 4 10:10:40 Abnormal auditory perception 13998675 Active 2023 ADWOA MORATAYA [address] , [place], [address] , [facility] [place] 4 10:11:45 Problem Notes None recorded. Procedures Surgical History Date Name Laterality Status Provider Name and Address Organization Details Recorded Time 07/05/20 24 completed Dayan Moraes [facility] [place] 07/25/2024 11:05:11 04/16/20 24 Date of Last Pap Smear completed Dayan Aleisha [place] - [facility] [place] [facility] [place] 07/25/2024 11:05:11 09/28/20 23 Date of Last Colonoscopy completed Dayan Aleisha [place] [facility] [place] [facility] [place] 07/25/2024 11:05:11 11/14/19 23 Colonoscopy completed Dayan Aleisha [place] [facility] [place] [facility] [place] 07/25/2024 11:05:27 11/14/19 22 Hip Surgery completed Dayan Aleisha [place] [facility] [place] [facility] [place] 07/25/2024 11:05:27 11/14/19 19 Cardiovascular Surgery [place] Dayan Aleisha [place] [facility] [place] [facility] [place] 07/25/2024 11:05:27 11/14/19 18 Other completed Dayan Aleisha [place] [facility] [place] [facility] [place] 07/25/2024 11:05:27 11/14/19 16 Other completed Dayan Aleisha [place] [facility] [place] [facility] [place] 07/25/2024 11:05:27 11/14/19 14 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 Procedure Notes None recorded. Medical Equipment None Reported. Allergies Allergen ID Allergen Name Allergen Category Reaction Reaction Severity Criticality Documentation Date Start Date Code Code System Note Provider Name and Address Organization Details Recorded Time [id number] [place] Not available hives severe Not available 07/25/2024 02774 UNK Dyaan Aleisha [place], [place] - [facility] [place] [facility] [place] 11:05:01 405250 shellfish derived food,medi cation Not available Not available Not available 07/25/2024 98611 UNK Dayan Moraes [facility], [place] - [facility] - [place] [facility] [place] 4 11:05:01 Medications Name Sig Start Date [...] completed Not Available Not Available Not Available [employer]UFA[employer]URING [employer]IST Thyroid 60 mg tablet TAKE 2 TABLETS [...] Updated DateTime 07/25/2024 157.48 cm 40.9 kg/m2 230852.54 g 96.3 [degF] Dayan Moraes [facility] [place] 07/25/2024 11:04:56 Social History Question Answer Notes LastModified by Organizat ion Details LastModified Time Tobacco Smoking Status Former Smoker Dayan Moraes [facility], [facility] [place] 07/25/2024 11:05:37 Do You Have An Advance [...] anxious, or unable to sleep at night)? [id number] Information not available 07/25/2024 Family History Nothing Reported. Medical History Condition Response Anxiety Disorder Y Allergies/Hayfever Y Autoimmune disease Y Obesity Y Arthritis Y Acid Reflux (GERD) Y Back Problems Y Stroke Y Thyroid Problems Y Kidney or Bladder Problems Y Asthma [...] SNOMED-CT Code Diagnosis ICD10 Code Diagnosis Note [id number] Ruba Jeff MD [facility] [place] [address] 07/25/2024 10:50:53 07/25/2024 11:37:43 Allergic rhinitis 83546233 J30.9 Will plan to allergy test her in the office at her [facility]. Will discuss results at that visit. Can see her back sooner if needed. [id number] Ruba Jeff MD [facility] [place] [address] [place] [address] 08/24/2024 09:18:26 08/24/2024 10:01:16 Allergic rhinitis 63372261 J30.9 Wasn't able to allergy skin test patient today due to her recently being on oral steroid. Explained to the patient this could give patient a false negative reaction. Blood was drawn today for RAST testing. Will be in touch with those results when they are received. [id number] ADWOA MORATAYA [facility] [place] [address] 8 09/19/2024 09:42:13 09/19/2024 09:54:11 Abnormal auditory perception 17381129 H93.299 Health Concerns Section Related Observation LastModified by Organization Detai ls LastModified Time None Recorded Concern Status LastModified by Organization Details LastModified Time None Recorded Advance Directives Directive Y: Payers Insurance Date Sequence Insurance Name Policy Number Policy Lopez Covered Member ID Lopez Member ID Guarantor Name 09/16/2024 1 [place] [id number] Nick Kc [id number] Susan Kc Notes Date Note Type [...] drainage, itchy;watery eyes. Ruba Jeff MD [address], [place], [address], [facility] 07/25/2024 13:07:02 09/19/2024 text/html Ms. Kc was [...] Dr. Jeff as planned. ADWOA MORATAYA [address] [facility], [place], [address], [facility] [place] 09/19/2024 10:12:01 OBGyn Episode No OBEpisode recorded.
== END 2025-05-10 23:59 | disposition home or self-care (01) ==
LOC: RAD 10:13
PROVIDERS: PCP Nurse Practitioner Family; Visit Provider Nurse Practitioner Family
DX: K76.0 Fatty (change of) liver, not elsewhere classified (principal)
CPT/HCPCS: 76700

== ENCOUNTER 2025-05-28 10:07 | Day surgery (SDC) | payer MEDICARE, BC, SELFPAY ==
[2025-05-28 10:21] VITALS: BP 118/58; PULSE 71; RESP 18; O2SAT 93; BMI 38.2
[2025-05-28] MEDS: BUPIVACAINE 0.25% 10ML INJ 25 MG IJ (10:43)
[2025-05-28 10:44] VITALS: BP 105/53; PULSE 75; RESP 18; O2SAT 96
[2025-05-28] MEDS: DEXAMETHASONE 10MG/ML 1ML VIAL 10 MG (10:44)
[2025-05-28] MEDS: LIDOCAINE 1% 5ML PF VIAL 5 ML (10:44)
[2025-05-28 10:45] VITALS: BP 105/53; PULSE 75; RESP 18; O2SAT 96
--- NOTE | 2025-05-28 10:50 | P.PCN_ITS ---
Procedure Date: 05/28/25 Time: 10:40 Anesthesiologist:: Rm Pena CRNA Complications:: None Pre-procedure Diagnosis:: Bilateral sacroiliitis Post-procedure Diagnosis:: Same Indications for Procedure:: Patient is a pleasant 54-year-old female who comes to clinic today for bilateral sacroiliac joint injections cortisone local anesthetic. Patient describes low lumbar back pain off the midline bilaterally. Bilateral posterior hip pain. Difficulty transitioning from sitting to standing. She rates her pain 7/10 Procedure Details:: Procedure: Bilateral sacroiliac joint injections under fluoroscopy Informed consent was obtained and the risks and benefits of the procedure were explained to the patient.~ The patient was taken to the procedure room and noninvasive monitors were placed including a noninvasive blood pressure cuff and pulse oximeter.~ The patient was placed prone on the procedure table. Both hips were cleansed using Betadine as a cleansing solution. C-arm fluoroscopy was used to view the right sacroiliac joint.~ The skin and subcutaneous tissues were anesthetized using lidocaine 1.5% and a 25-gauge needle.~ After this, a 22-gauge spinal needle was inserted under fluoroscopic guidance into the inferior aspect of the right sacroiliac joint.~ Omnipaque dye was injected and good spread was seen throughout the joint.~ After this, approximately 5 mL of bupivacaine, 0.25% and dexamethasone 5 mg was incrementally injected into the right sacroiliac joint. We then moved to the left sacroiliac joint.~ The skin and subcutaneous tissues were anesthetized using lidocaine 1.5% and a 25-gauge needle.~ After this, a 22- gauge spinal needle was inserted under fluoroscopic guidance into the inferior aspect of the left sacroiliac joint.~ Omnipaque dye was injected and good spread was seen throughout the joint. After this, approximately 5 mL of bupivacaine, 0.25% and dexamethasone 5 mg was incrementally injected into the left sacroiliac joint.~ The patient tolerated the procedure well with no complications. The patient was observed in the Pain Clinic and then was discharged home neurologically intact. Plan and Disposition:: Patient was discharged without incident.
[2025-05-28 10:55] VITALS: BP 101/61; PULSE 74; RESP 18; O2SAT 97
== END 2025-05-28 10:55 | disposition home or self-care (01) ==
PROVIDERS: PCP Nurse Practitioner Family; Visit Provider Nurse Anesthetist, Certified Registered
DX: M46.1 Sacroiliitis, not elsewhere classified (principal); E06.3 Autoimmune thyroiditis; F41.9 Anxiety disorder, unspecified; F32.A Depression, unspecified; M79.7 Fibromyalgia; F43.10 Post-traumatic stress disorder, unspecified; M19.90 Unspecified osteoarthritis, unspecified site; Z91.013 Allergy to seafood; Z79.899 Other long term (current) drug therapy
CPT/HCPCS: 27096; J0665; J1100; J2003

== ENCOUNTER 2025-06-12 15:16 | Outpatient (POV) | payer MEDICARE, BC, SELFPAY ==
--- OUTSIDE RECORDS SUMMARY | 2018-02-28 19:51 | XMS_ITS | Encounter Summary ---
Author Organization [facility] Address [address] [place] [address] Care Team Providers Care Orchestra Teacher Name Role Phone Kevin Sandhu MD Primary Care Provider [phone] Reason for Referral * Hospital - Outpatient (Routine) - Closed Specialty Diagnoses / Procedures Referred By Jorge marshall Referred To Contact Sleep Medicine Diagnoses MERON (obstructive sleep apnea) Procedures Polysomnography 4 or More Parameters Polysomnography 4 or More Parameters With CPAP Lizzy Denny MD Phone: tel: fax: [facility] [address] [place] [address] Phone: tel: fax: Referral ID Status Reason Start Date Expiration Date Visits Re quested Visits Authorized [id number] Closed 02/20/2018 02/20/2019 1 1 Reason for Visit * Hospital - Outpatient (Routine) - Closed Specialty Diagnoses / Procedures Referred By Jorge marshall Referred To Contact Sleep Medicine Diagnoses MERON (obstructive sleep apnea) Procedures Polysomnography 4 or More Parameters Polysomnography 4 or More Parameters With CPAP Lizzy Denny MD Phone: tel: fax: [facility] [address] [place] [address] Phone: tel: fax: Referral ID Status Reason Start Date Expiration Date Visits Re quested Visits Authorized [id number] Closed 02/20/2018 02/20/2019 1 1 Encounter Details Date Type Department Care Team (Late st Contact Info) Description 02/28/2018 7:51 PM EDT Hospital Encounter [facility] [address] [place] [phone] Lizzy Denny MD [address] [place] [id number] MERON (obstructive sleep apnea) Social History Tobacco Use Types Packs/Day Years Used Date Smoking Tobacco: Former Cigarettes 0.5 2 0 11/14/1987 - 11/14/1989 Passive Smoke Exposure: Past Smokeless Tobacco: Never Alcohol Use Standard Drinks/Week Comments Yes 0 (1 standard drink = 0.6 oz pur e alcohol) Only occasionaly AUDIT-C Answer Date Recorded Q1: How often do you have a drink containing alc ohol? Monthly or less 09/13/2024 Q2: How many drinks containi ng alcohol do you have on a typical day when you are drinking? 1 or 2 09/13/2024 Q3: How often do you have si x or more drinks on one occasion? Less than monthly 09/13/2024 Abuse Screen Answer Date Recorded Feels Unsafe at Home or Work/School no 09/13/2024 Feels Threatened by Someone no 08/16 Does Anyone Try to Keep You From Having Contact with Others or Doing Things Outside Your Home? no 09/13/2024 Physical Signs of Abuse Present no 09/13/2024 Housing Stability Answer Date Recorded Current Living Arrangements home 08/16 Potentially Unsafe Housing Conditions Not on brandon e 09/13/2024 Disabilities Answer Date Recorded Difficulty Concentrating, Remembering or Making Decisions no 09/13/2024 Difficulty Managing Errands Independently no 09/13/2024 PHQ-2 Answer Date Recorded Patient Health Questionnaire-2 Score 0 09/13/2024 Comments No Sex and Gender Information Value Date Recorded Sex Assigned at Female 01/06/2025 5:11 PM EST Legal Sex Female 12:26 PM EDT Gender Identity Not on file Sexual Orientation Not on file 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 Wish to be (Past 1 Month) No 024 10:45 AM EDT Isela Arauz RN 2. Non-Specific Active Suici cesar Thoughts (Past 1 Month) No 09/13/2024 10:45 AM EDT Kristina Arauz RN * Calculated C-SSRS Risk Score (Lifetime/Recent) Answer Date of Assessment Author No Risk Indicated 09/13/2024 10:45 AM EDT Isela Arauz RN * [place] Suicide Severity Rating Scale (Screener/Recent Self-Report) Question Answer Date of Assessment Author 6. Suicidal Behavior (Lifetime) No 10:45 AM EDT Isela Arauz RN * Question Answer Date of Assessment Author Little interest or pleasure in doing things Not at all 09/13/2024 10:45 AM EDT Isela Arauz RN Feeling down, depressed, or hopeless Not at all 09/13/2024 10:45 AM EDT Isela Arauz RN Patient Health Questionnaire-2 Score 0 09/13/2024 10:45 AM EDT Myrna Arauz RN documented as of this encounter Plan of Treatment Upcoming Encounters Date Type Department Care Team (Late st Contact Info) Description 09/11/2025 11:30 AM EDT Office Visit [facility] [address] [place] [phone] José Miguel Kraus MD [address] [facility] [address] [place] [address] 11/08/2025 11:00 AM EST Office Visit [facility] ENDOCRINOLOGY [address] [facility] [address] [place] [phone] George Fuller MD [address] [facility] [address] [place] [address] 12/31/2025 10:45 AM EST Registration [facility] PULMONARY & [facility]ITICAL [facility] MEDICINE [address] [facility] [place] [address] 12/31/2025 11:00 AM EST Office Visit [facility]ULMON[facility]ICAL [facility] MEDICINE [address] [facility] [place] [address] 12/31/2025 11:30 AM EST Office Visit [facility]ULMON[facility]ICAL [facility] MEDICINE [address] [facility] [place] [address] Gabriella Mills, LEONID [address] [place] [address] documented as of this encounter Goals Goal Patient Goal Type Associated Problems Recent Progress Patient-Stated? Author Specialty Pharmacy General Goal General No Alem Bai, PharmD Note: LDL Goal < 100 mg/dL Lab Results Component Value Date LDL 273 (H) 09/13/2024 LDL 127 (H) 10/03/2019 LDL 225 (H) 03/13/2019 LDL 166 (H) 08/25/2016 documented as of this encounter Procedures Procedure Name Priority Date/Time Associated Diagnosis Comments NPSG Routine 03/01/2018 7:30 AM EDT MERON (obstructive sleep apnea) documented in this encounter Results * NPSG (03/01/2018 7:30 AM EDT) Narrative Eulogio German MD - 03/02/2018 12:20 PM EDT Patient Name: Susan Kc Date of : 1970 Date of Study: 03/01/18 Sleep Specialist: Eulogio German MD Referring Provider: Polysomnogram Report Indications for study: Evidence of obstructive sleep apnea Clinical Information: 47-year-old female seen by Dr. Denny for sarcoidosis and found to have a history of snoring and nonrestorative sleep suggestive of obstructive sleep apnea. A polysomnogram was ordered. Technical Description: A) Total study time: 497 minutes B) Total sleep time: 369 minutes C) Polysomnogram recording included: 1. Six channels of EEG. 2. Two channels of EOG. 3. EMG of chin, right and left tibialis anterior muscles. 4. Air flow using nasal thermocouple. 5. Respiratory efforts using thoracoabdominal respiratory bands. 6. O2 saturation via finger oximetry. 7. Body position. 8. Snoring via microphone. 9. ECG. 10. PAP therapy/titration study if indicated per standard protocol. Polysomnogram Results: A) Sleep statistic and architecture: The patient had a sleep efficiency of 74%. Sleep latency was 109 minutes. All stages of sleep were seen during the study. The arousal index was 3 per hour. B) Respiratory events: Apnea-hypopnea index was 8 per hour. C) Body position: Patient slept in the supine position as well as on both sides. D) Snoring: Snoring was noted to be present by the bio medical technician in attendance. E) Oxygen saturation: Oxygen saturation averaged 93 % with a minimum oxygen saturation of 84 %. F) Periodic limb movements: The periodic limb movement index was not elevated at 1 per hour. G) ECG: There were no prolonged arrhythmias. Impression: She had a mild elevation of her AHI 7.5 though the index is more significant in crescencio sleep. A significant limb movement disorder was not noted. Snoring and oxygen desaturations were significant. Recommendations: Despite the mild nature of her AHI elevation, given her snoring, oxygen desaturation, and presenting symptoms she would likely benefit from treatment for obstructive sleep apnea. Options would include CPAP therapy, an oral appliance if appropriate, or surgery appropriate. She will follow-up with Dr. Denny as before for consideration of treatment if appropriate. Signed by: Eulogio German MD on 03/02/18 Lizzy Denny MD SLEEP CENTER ORDERABLES Final Result documented in this encounter Visit Diagnoses Diagnosis MERON (obstructive sleep apnea) Obstructive sleep apnea (adult) (pediatric) documented in this encounter Care Teams Orchestra Teacher Relationship Specialty Start Date End Date Kevin Sandhu MD [address] [place] [address] PCP - General 02/04/16 06/21/24 documented as of this encounter
--- OUTSIDE RECORDS SUMMARY | 2019-05-16 08:47 | XMS_ITS | Encounter Summary ---
[facility] Organization 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 Wish to be (Past 1 Month) No 024 10:45 AM ALONT Isela Arauz RN 2. Non-Specific Active Suici cesar Thoughts (Past 1 Month) No 09/13/2024 10:45 AM EDT Kristina Arauz RN * Calculated C-SSRS Risk Score (Lifetime/Recent) Answer Date of Assessment Author No Risk Indicated 09/13/2024 10:45 AM EDT Isela Arauz RN * [place] Suicide Severity Rating Scale (Screener/Recent Self-Report) Question Answer Date of Assessment Author 6. Suicidal Behavior (Lifetime) No 10:45 AM Isela Mathis RN * Question Answer Date of Assessment Author Little interest or pleasure in doing things Not at all 09/13/2024 10:45 AM Isela Mathis RN Feeling down, depressed, or hopeless Not at all 09/13/2024 10:45 AM Isela Mathis RN Patient Health Questionnaire-2 Score 0 09/13/2024 10:45 AM EDT Myrna Arauz RN documented as of this encounter Plan of Treatment Upcoming Encounters Date Type Department Care Team (Late st Contact Info) Description 09/11/2025 11:30 AM EDT Office Visit [facility] [address] [facility] [address] [place] [address] José Miguel Kraus MD [address] [place] [address] 11/08/2025 11:00 AM EST Office Visit [facility]CRIN[facility] [address] [facility] [address] [place] [phone] George Fuller MD [address] [address] [place] [address] 12/31/2025 10:45 AM EST Registration [facility]UL[facility] MEDICINE [address] [facility] [place] [address] 12/31/2025 11:00 AM EST Office Visit [facility] MEDICINE [address] [facility] [place] [address] 12/31/2025 11:30 AM EST Office Visit [facility] PULMONARY [facility]ITICAL [facility]ARE MEDICINE [address] [facility] [place] [address] Gabriella Mills, PLANNER INTERNSHIP [address] [place] [address] documented as of this encounter Goals Goal [...] Procedure Name Priority Date/Time Associated Diagnosis Comments XR CHEST PA AND LATERAL Routine 05/16/2019 9:06 AM EDT Sarcoidosis documented in this encounter Results * XR Chest PA & Lateral (05/16/2019 9:06 AM EDT) Anatomical Region Laterality Modality Body, Chest N/A Radiographic Clarita ging Narrative 05/28/2019 1:59 PM EDT PA and lateral chest x-ray May 16, 2019 Cardiac silhouette is not enlarged. Lungs are adequately inflated without acute infiltrate or effusion Calcified granulomatous changes in both kevin No bony or soft tissue abnormalities identified Impression old granulomatous disease us Lizzy Denny MD IMG DIAGNOSTIC IMAGING O RDERABLES Final Result documented in this encounter Visit Diagnoses Not on filedocumented in this encounter Care Teams Triage Assistant Relationship Specialty Start Date End Date Kevin Sandhu MD [address] [place] [address] PCP - General 02/04/16 06/21/24 documented as of this encounter
--- OUTSIDE RECORDS SUMMARY | 2019-11-19 13:51 | XMS_ITS | Encounter Summary ---
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 [...] 10:45 AM EDT Isela Arauz RN * [place] Suicide Severity Rating Scale (Screener/Recent Self-Report) Question [...] Description 09/11/2025 11:30 AM EDT Office Visit [facility] [address] [facility] [place] [address] José Miguel Kraus MD [address] [place] [address] 11/08/2025 11:00 AM EST Office Visit [facility]INOLOGY [address] [facility] [address] [place] [phone] George Fuller MD [address] [facility] [facility] [address] [place] [address] 12/31/2025 10:45 AM EST Registration [facility] PULMONARY & CRITICAL CARE MEDICINE [address] [place] [place] [address] 12/31/2025 11:00 AM EST Office Visit [facility] PULMONARY & CRITICAL CARE MEDICINE [address] [place] [place] [address] 12/31/2025 11:30 AM EST Office Visit [facility] PULMONARY & CRITICAL CARE MEDICINE [address] [place] [address] Gabriella Mills, HUB CUTTER [address] [place] [address] documented as of this encounter Goals Goal [...] Comments XR CHEST PA AND LATERAL Routine 11/19/2019 1:04 PM EST Sarcoidosis documented in this encounter Results * XR Chest PA & Lateral (11/19/2019 1:04 PM EST) Anatomical Region Laterality Modality Body, Chest N/A Radiographic Clarita ging Narrative 11/24/2019 11:42 PM EST PA and lateral chest x-ray November 19, 2019 Spine is straight Cardiac silhouette is not enlarged Lungs are well-inflated Small calcified area in the right middle lobe No acute infiltrate or effusion us Lizzy Denny MD IMG DIAGNOSTIC IMAGING O RDERABLES Final Result documented in this encounter Visit Diagnoses Not on filedocumented in this encounter Care Teams Fan Runner Relationship Specialty Start Date End Date Kevin Sandhu MD [address] [place] [id number] PCP - General 02/04/16 06/21/24 documented as of this encounter
--- OUTSIDE RECORDS SUMMARY | 2021-01-12 11:10 | XMS_ITS | Encounter Summary ---
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 [...] 10:45 AM EDT Isela Arauz RN * [place] Suicide Severity Rating Scale (Screener/Recent Self-Report) Question [...] Description 09/11/2025 11:30 AM EDT Office Visit [facility] [address] [facility] [address] [place] [address] José Miguel Kraus MD [address] [place] [address] 11/08/2025 11:00 AM EST Office Visit [facility] ENDOCRINOLOGY [address] [facility] [address] [place] [address] George Fuller MD [address] [facility] [address] [place] [address] 12/31/2025 10:45 AM EST Registration [facility] PULMONARY & CRITICAL CARE MEDICINE [address] [place] [address] 12/31/2025 11:00 AM EST Office Visit [facility] PULMONARY & CRITICAL CARE MEDICINE [address] [place] [address] 12/31/2025 11:30 AM EST Office Visit [facility] PULMONARY & CRITICAL CARE MEDICINE [address] [place] [address] Gabriella Mills, AGRICULTURAL EQUIPMENT TEST ENGINEER [address] [place] [address] documented as of this encounter Goals Goal [...] Comments XR CHEST PA AND LATERAL Routine 01/12/2021 10:16 AM EST Sarcoidosis documented in this encounter Results * XR Chest PA & Lateral (01/12/2021 10:16 AM EST) Anatomical Region Laterality Modality Body, Chest N/A Radiographic Clarita ging Narrative 01/15/2021 5:58 PM EST January 12, 2021, PA and lateral chest x-ray Cardiac silhouette is not enlarged Calcified granulomatous findings in the right hilum and right lower lobe No acute infiltrate or effusion Evidence of a PFO closure device us Lizzy Denny MD IMG DIAGNOSTIC IMAGING O RDERABLES Final Result documented in this encounter Visit Diagnoses Not on filedocumented in this encounter Care Teams Painter Shipyard Relationship Specialty Start Date End Date Kevin Sandhu MD [address] [place] [address] PCP - General 02/04/16 06/21/24 documented as of this encounter
--- OUTSIDE RECORDS SUMMARY | 2022-05-03 08:41 | XMS_ITS | Encounter Summary ---
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 [address] [place] [address] George Fuller MD [address] [facility] [address] [place] [address] 12/31/2025 10:45 AM EST Registration [facility] PULMONARY & CRITICAL CARE MEDICINE [address] [place] [address] 12/31/2025 11:00 AM EST Office Visit [facility] PULMONARY & CRITICAL CARE MEDICINE [address] [facility] [address] 12/31/2025 11:30 AM EST Office Visit [facility] PULMONARY & CRITICAL CARE MEDICINE [address] [place] [address] Gabriella Mills, CERTIFIED MEDICAL CODER [address] [place] [address] documented as of this encounter Goals Goal [...] Comments XR CHEST PA AND LATERAL Routine 05/03/2022 8:42 AM EDT Mild persistent asthma without complication Sarcoidosis documented in this encounter Results * XR Chest PA & Lateral (05/03/2022 8:42 AM EDT) Anatomical Region Laterality Modality Body, Chest N/A Radiographic Clarita ging Narrative 05/04/2022 12:39 PM EDT May 03, 2022, PA and lateral chest x-ray Lungs are well-inflated without acute infiltrate or effusion Scattered calcified granulomatous changes Cardiac silhouette is not enlarged PFO closure device noted No significant bony abnormalities identified us Lizzy Denny MD IMG DIAGNOSTIC IMAGING O RDERABLES Final Result documented in this encounter Visit Diagnoses Not on filedocumented in this encounter Care Teams Anesthesia Director Relationship Specialty Start Date End Date Kevin Sandhu MD [address] [place] [address] PCP - General 02/04/16 06/21/24 documented as of this encounter
--- OUTSIDE RECORDS SUMMARY | 2023-06-13 13:37 | XMS_ITS | Encounter Summary ---
Author Organization 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 [address] [place] [address] George Fuller MD [address] [facility] [address] [place] [address] 12/31/2025 10:45 AM EST Registration [facility] PULMONARY & CRITICAL CARE MEDICINE [address] [facility] [place] [place] [address] 12/31/2025 11:00 AM EST Office Visit [facility] PULMONARY & CRITICAL CARE MEDICINE [address] [facility] [place] [place] [address] 12/31/2025 11:30 AM EST Office Visit [facility] PULMONARY & CRITICAL CARE MEDICINE [address] [facility] [place] [place] [address] Gabriella Mills, BASKETBALL SCOUT [address] [place] [address] documented as of this encounter Goals Goal [...] Comments XR CHEST PA AND LATERAL Routine 06/13/2023 1:40 PM EDT Mild persistent asthma without complication Sarcoidosis documented in this encounter Results * XR Chest PA & Lateral (06/13/2023 1:40 PM EDT) Anatomical Region Laterality Modality Body, Chest N/A Radiographic Clarita ging Narrative 07/12/2023 4:56 PM EDT June 13, 2023, PA and lateral chest x-ray Cardiac silhouette is not enlarged. Calcified granulomatous changes in both kevin, right middle lobe and left upper lobe No acute infiltrate or effusion Possible leadless pacemaker right ventricle No significant bony abnormalities us Lizzy Denny MD IMG DIAGNOSTIC IMAGING O RDERABLES Final Result documented in this encounter Visit Diagnoses Not on filedocumented in this encounter Care Teams Machine Heel Seat Fitter Relationship Specialty Start Date End Date Kevin Sandhu MD [address] [place] [address] PCP - General 02/04/16 06/21/24 documented as of this encounter
--- OUTSIDE RECORDS SUMMARY | 2024-06-22 11:58 | XMS_ITS | Encounter Summary ---
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 Suicidal Behavior (Lifetime) No 10:45 AM Isela Mathis RN * Question Answer Date of Assessment Author Little interest or pleasure in doing things Not at all 09/13/2024 10:45 AM ALONT Isela Arauz RN Feeling down, depressed, or hopeless Not at all 09/13/2024 10:45 AM EDT Isela Arauz RN Patient Health Questionnaire-2 Score 0 09/13/2024 10:45 AM EDT Myrna Arauz RN documented as of this encounter Plan of Treatment Upcoming Encounters Date Type Department Care Team (Late st Contact Info) Description 09/11/2025 11:30 AM EDT Office Visit [facility] CARDIOLOGY [address] [facility] [address] [place] [address] José Miguel Kraus MD [address] [place] [address] 11/08/2025 11:00 AM EST Office Visit [facility] ENDOCRINOLOGY [address] [facility] [address] [place] [id number] Georeg Fuller MD [address] [facility] [address] [place] [address] 12/31/2025 10:45 AM EST Registration [facility] PULMONARY & CRITICAL CARE MEDICINE [address] [facility] [place] [address] 12/31/2025 11:00 AM EST Office Visit [facility] PULMONARY & CRITICAL CARE MEDICINE [address] [facility] [place] [address] 12/31/2025 11:30 AM EST Office Visit [facility] PULMONARY & CRITICAL CARE MEDICINE [address] [facility] [place] [address] Gabriella Mills, RIVET SPINNER [address] [place] [address] documented as of this encounter Goals Goal [...] Comments XR CHEST PA AND LATERAL Routine 06/22/2024 12:06 PM EDT Sarcoidosis Mild persistent asthma without complication documented in this encounter Results * XR Chest PA & Lateral (06/22/2024 12:06 PM EDT) Anatomical Region Laterality Modality Body, Chest N/A Radiographic Clarita ging 06/22/2024 5:35 PM EDT Impressions 06/22/2024 5:38 PM EDT No evidence of acute disease in the chest. Electronically Signed: Ming Alvarez MD 06/22/2024 5:38 PM EDT Workstation ID: [id number] Narrative 06/22/2024 5:38 PM EDT XR CHEST PA AND LATERAL Date of Exam: 06/22/2024 12:06 PM EDT Indication: SARCOIDOSIS Comparison: 06/13/2023. FINDINGS: No focal airspace opacity. No pleural effusion or pneumothorax. Normal heart and mediastinal contours. Cardiac device projects unchanged, suspected interatrial device. Procedure Note Presley Alvarez MD - 06/22/2024 XR CHEST PA AND LATERAL Date of Exam: 06/22/2024 12:06 PM EDT Indication: SARCOIDOSIS Comparison: 06/13/2023. FINDINGS: No focal airspace opacity. No pleural effusion or pneumothorax.Normal heart and mediastinal contours. Cardiac device projects unchanged,suspected interatrial device. IMPRESSION: No evidence of acute disease in the chest. Electronically Signed: Ming Alvarez MD 06/22/2024 5:38 PM EDT Workstation ID: [id number] us Lizzy Denny MD IMG DIAGNOSTIC IMAGING O RDERABLES Final Result documented in this encounter Visit Diagnoses Not on filedocumented in this encounter Care Teams Electrical Control Assembler Relationship Specialty Start Date End Date Lara Torres APRN [address] [place] [address] PCP - General Family Medicine 06/22/24 documented as of this encounter
--- OUTSIDE RECORDS SUMMARY | 2024-10-20 17:00 | XMS_ITS ---
Author Organization [facility] Address [address] [place] [address] [place] [address] Care Team Providers Care Home Care Liaison Name Role Phone Kirby Tirado MD Primary Care Provider Amauri Mendez Unavailable [phone] Migration, Provider Unavailable Unavailable Allergies Allergen (clinical drug ingredient) Drug/Non Drug Allergy documented on EMR Reaction Allergy Type Onset Date Status Shellfish SHELLFISH (uncoded) Unknown Allergy Active [facility] Encounter Medications Medication SIG (Take, Route, Frequency, Duration) Notes Start Date End Date Status rOPINIRole HCl 1 MG 1 tab(s) orally at bedtime for 90 days Active Sucraid 8500 INTL UNITS/ML for 30 DAYS *Please review and pick correct strength-formulat ion from Teevoxan options. If intended option is not shown, discontinue and re-order from Quick Search* Active PROzac 20 MG 1 cap(s) orally once a day for 90 days 05/27/2022 Active Metoprolol Succinate ER 50 MG for 90 Days Not-Taking busPIRone HCl 30 MG 1 tab(s) orally 2 times a day for 90 days Active NEUROPATHIC PAIN TOPICAL APPLY 1-2 GM (1-2 PUMPS) TO AFFECTED AREA. TOPICAL 3-4 TIMES DAILY. *Please review for potential replacement for e-prescription and drug interaction check* Active ALBUTEROL (EQV-PROAIR HFA) 90 MCG/INH for 30 DAYS *Please review for potential replacement for e-prescription and drug interaction check* Active Omeprazole 20 MG for 15 Days A ctive rOPINIRole HCl 0.5 MG 1/2 tab at bedtime for 2 days then 1 tab at bedtime for 5 days then 2 tabs at bedtime, may increase by 1 tab per week if needed. orally at bedtime for 30 day(s) Active MANUFACTURING TEST ENGINEER Thyroid 60 MG TAKE 2 & 1/2 (TWO & ONE-HALF) TABLETS BY MOUTH ONCE DAILY for 90 Days Active Advair HFA 115-21 MCG/ACT for 30 Days Active Vitamin B 12 *Please review and pick correct strength-formulat ion from Netstory options. If intended option is not shown, discontinue and re-order from Quick Search* Active Nitroglycerin 0.4 MG for 8 Days Active chlordiazePOXIDE-Cli dinium 5-2.5 MG for 90 Days Active Osphena 60 MG TAKE 1 TABLET BY MOUTH ONCE DAILY for 90 Days Active Xyzal Allergy 24HR 5 MG 1 tab(s) orally once a day (in the evening) Active Vitamin D3 25 MCG 1 tab(s) orally once a day Active Estradiol 1 MG 1 tab(s) orally once a day Active Aspirin 81 MG 1 tab(s) chewed once a day Active Vitamin E *Please review and pick correct strength-formulat ion from Netstory options. If intended option is not shown, discontinue and re-order from Quick Search* Active Turmeric 500 MG 1 cap(s) orally once a day Active Sera 0.1 MG/24 HOURS TWICE WEEKLY APPLY 1 PATCH TOPICALLY TWICE A WEEK for 84 DAYS *Please review and pick correct strength-formulat ion from Netstory options. If intended option is not shown, discontinue and re-order from Quick Search* Unknown Metoprolol Succinate ER 25 MG 1 tab(s) orally once a day 08/15/2023 Active oxyBUTYnin Chloride 5 MG 1 tab(s) orally once a day Active Atorvastatin Calcium 80 MG 1 tab(s) orally once a day Active Melatonin 3 MG 1 tab(s) orally once a day (at bedtime) Not-Taking Encounters Encounter Location Date Provider Diagnosis [facility] [address] [place] [address] 10/20/2024 Provider Migration Plan Of Treatment No Information Progress Notes * Susan CKDOB: 0 (54 yo F)Acc No.[id number]:10/20/2024 Patient: Susan DAIGLE Provider: Yayo luong Migration :1970 A ge:53 Y S ex:Female Date:10/20/2024 Address:[address], [id number] Pcp:Kirby Tirado MD Subjective: * Chief Complaints: * 1 . [facility]. * Medical History: * Medications: T aking Atorvastatin Calcium 80 MG Tablet 1 tab(s) orally once a day , Taking oxyBUTYnin Chloride 5 MG Tablet 1 tab(s) orally once a day , Taking Metoprolol Succinate ER 25 MG Tablet Extended Release 24 Hour 1 tab(s) orally once a day , Taking Turmeric 500 MG Capsule 1 cap(s) orally once a day , Taking Aspirin 81 MG Tablet Chewable 1 tab(s) chewed once a day , Taking Estradiol 1 MG Tablet 1 tab(s) orally once a day , Taking Vitamin D3 25 MCG Tablet 1 tab(s) orally once a day , Taking Xyzal Allergy 24HR 5 MG Tablet 1 tab(s) orally once a day (in the evening) , Taking Vitamin E , Notes to Pharmacist: *Please review and pick correct strength-formulation from Teevoxspan options. If intended option is not shown, discontinue and re-order from Quick Search*, Taking Vitamin B 12 , Notes to Pharmacist: *Please review and pick correct strength-formulation from [facility]. If intended option is not shown, discontinue and re-order from Quick Search*, Taking Advair HFA 115-21 MCG/ACT Aerosol , Taking Osphena 60 MG Tablet TAKE 1 TABLET BY MOUTH ONCE DAILY , Taking chlordiazePOXIDE-Clidinium 5-2.5 MG Capsule , Taking Nitroglycerin 0.4 MG Tablet Sublingual , Taking MANUFACTURING TEST ENGINEER Thyroid 60 MG Tablet TAKE 2 & 1/2 (TWO & ONE-HALF) TABLETS BY MOUTH ONCE DAILY , Taking Omeprazole 20 MG Capsule Delayed Release , Taking ALBUTEROL (EQV-PROAIR HFA) 90 MCG/INH AEROSOL , Notes to Pharmacist: *Please review for potential replacement for e-prescription and drug interaction check*, Taking NEUROPATHIC PAIN TOPICAL KETAMINE 10%, BACLOFEN 2%, FLEXERIL 2%, DICLOFENAC 3%, GABAPENTIN 10%, BUPI 2% APPLY 1-2 GM (1-2 PUMPS) TO AFFECTED AREA. TOPICAL 3-4 TIMES DAILY. , Notes to Pharmacist: *Please review for potential replacement for e-prescription and drug interaction check*, Taking rOPINIRole HCl 0.5 MG Tablet 1/2 tab at bedtime for 2 days then 1 tab at bedtime for 5 days then 2 tabs at bedtime, may increase by 1 tab per week if needed. orally at bedtime , Taking PROzac 20 MG Capsule 1 cap(s) orally once a day , Taking Sucraid 8500 INTL UNITS/ML SOLUTION , Notes to Pharmacist: *Please review and pick correct strength-formulation from Netstory options. If intended option is not shown, discontinue and re-order from Quick Search*, Taking rOPINIRole HCl 1 MG Tablet 1 tab(s) orally at bedtime , Taking busPIRone HCl 30 MG Tablet 1 tab(s) orally 2 times a day , Not-Taking Metoprolol Succinate ER 50 MG Tablet Extended Release 24 Hour , Not-Taking Melatonin 3 MG Tablet 1 tab(s) orally once a day (at bedtime) , Unknown Sera 0.1 MG/24 HOURS TWICE WEEKLY FILM, EXTENDED RELEASE APPLY 1 PATCH TOPICALLY TWICE A WEEK , Notes to Pharmacist: *Please review and pick correct strength-formulation from Netstory options. If intended option is not shown, discontinue and re-order from Quick Search* * Allergies: S HELLFISH. Objective: * Vitals: Assessment: Plan: * Treatment: * Billing Information: * Visit Code: * Procedure Codes: * Electronic signature of Prov kishorer Migration on 06/12/2025 at 03:20 PM EDT Sign off status: Pending * Provider: Yayo luong Migration Date: 12/21/2023 Generated for Matteo pino/Charles/Airamitting on: 0 06/12/2025 03:20 PM EDT
--- OUTSIDE RECORDS SUMMARY | 2025-01-07 14:18 | XMS_ITS | Encounter Summary ---
Author Organization 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 Not on file Not on file documented as of this encounter Plan of Treatment Upcoming Encounters Date Type Department Care Team (Late st Contact Info) Description 09/11/2025 11:30 AM EDT Office Visit [facility] CARDIOLOGY [address] [facility] [address] [place] [address] José Miguel Kraus MD [address] [facility] [address] [place] [address] 11/08/2025 11:00 AM EST Office Visit [facility] ENDOCRINOLOGY [address] [facility] [address] [place] [id number] George Fuller MD [address] [place] [address] 12/31/2025 10:45 AM EST Registration [facility] PULMONARY [facility] CRITICAL CARE MEDICINE [address] [place] [address] 12/31/2025 11:00 AM EST Office Visit [facility] PULMONARY [facility] CRITICAL CARE MEDICINE [address] [place] [address] 12/31/2025 11:30 AM EST Office Visit [facility] PULMONARY & CRITICAL CARE MEDICINE [address] [place] [address] Mikel Millsra Guzman, DELINQUENCY COUNSELOR [address] [place] [address] documented as of this encounter Goals Goal [...] Comments XR CHEST PA AND LATERAL Routine 01/07/2025 1:22 PM EST Sarcoidosis documented in this encounter Results * XR Chest PA & Lateral (01/07/2025 1:22 PM EST) Anatomical Region Laterality Modality Body, Chest N/A Radiographic Clarita ging 01/09/2025 6:13 AM EST Impressions 01/09/2025 6:16 AM EST Impression: No acute cardiopulmonary process. Electronically Signed: Nadia Morrison MD 01/09/2025 6:16 AM EST Workstation ID: [id number] Narrative 01/09/2025 6:16 AM EST XR CHEST PA AND LATERAL Date of Exam: 01/07/2025 1:22 PM EST Indication: SARCOIDOSIS Comparison: 06/22/2024. Findings: There are no airspace consolidations. No pleural fluid. No pneumothorax. The pulmonary vasculature appears within normal limits. The cardiac and mediastinal silhouette appear unremarkable. No acute osseous abnormality identified. Procedure Note Nadia Morrison MD - 01/09/2025 XR CHEST PA AND LATERAL Date of Exam: 01/07/2025 1:22 PM EST Indication: SARCOIDOSIS Comparison: 06/22/2024. Findings: There are no airspace consolidations. No pleural fluid. No pneumothorax.The pulmonary vasculature appears within normal limits. The cardiac andmediastinal silhouette appear unremarkable. No acute osseous abnormalityidentified. IMPRESSION: Impression: No acute cardiopulmonary process. Electronically Signed: Nadia Morrison MD 01/09/2025 6:16 AM EST Workstation ID: [id number] us Lizzy Denny MD [facility] DI[facility]NOSTIC IM[facility]ING O RDERABLES Final Result documented in this encounter Visit Diagnoses Not on filedocumented in this encounter Care Teams Councilor Relationship Specialty Start Date End Date Lara Torres APRN [address] [place] [address] PCP - General Family Medicine 06/22/24 documented as of this encounter
--- OUTSIDE RECORDS SUMMARY | 2025-04-16 11:30 | XMS_ITS | Encounter Summary ---
Author Organization [facility] Address [address] [place] [address] Care Team Providers Care Java Development Team Lead Name Role Phone Lara Torres LEONID Primary Care Provider [phone] Reason for Visit * Reason Comments Sleep Apnea Encounter Details Date Type Department Care Team (Late st Contact Info) Description 04/16/2025 11:30 AM EDT Office Visit [facility] MEDICINE [address] [place] [address] Gabriella Mills APRN [address] [place] [address] MERON (obstructive sleep apnea) (Primary Dx); Sarcoidosis; Mild persistent asthma without complication Social History Tobacco Use Types Packs/Day Years Used Date Smoking Tobacco: Former Cigarettes 0.5 2 0 11/14/1987 - 11/14/1989 Passive Smoke Exposure: Past Smokeless Tobacco: Never Tobacco Cessation:Counseling Given: Not Answered Alcohol Use Standard Drinks/Week Comments Yes 0 [...] 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 Not on file Not on file Not on file documented as of this encounter Last Filed Vital Signs Vital Sign Reading Time Taken Comments Blood Pressure 128/70 04/16/2025 11:10 AM EDT Pulse 80 04/16/2025 11:10 AM EDT Temperature 36.6 C (97.8 F) 04/16/2025 11:10 AM EDT Respiratory Rate - - Oxygen Saturation 96% 04/16/2025 11: 10 AM EDT room air at rest Inhaled Oxygen Concentration - - Weight 96.6 kg (213 lb) 04/16/2025 11:1 0 AM EDT Height 157.5 cm (5' 2.01 ) 04/16/2025 1 1:10 AM EDT Body Mass Index 38.95 04/16/2025 11:10 AM EDT documented in this encounter Progress Notes * Gabriella Mills, LEONID - 04/16/2025 11:30 AM EDT [facility] [place] Pulmonary Follow up Chief Complaint Sleep Apnea Subjective Susan Kc presents to [facility]UL[facility]ICAL CARE MEDICINE for follow-up on her obstructive sleep apnea. She recently changed from CPAP to BiPAP and is doing much better. She is wearing it nightly and tolerating it well. We followed up on her compliance report today. She has had about 80% compliance in the last 48 dayswith an AHI of 3. She also has a history of sarcoidosis treated in 2018 with no evidence of recurrence. She has asthma and uses Advair at least daily if not twice daily. She has had very little use of albuterol. No recent acute exacerbations or illnesses. She does have some seasonal allergy issues. Objective Vital Signs: BP 128/70 Pulse 80 Temp 97.8 ??F (36.6 ??C) Ht 157.5 cm (62.01 ) Wt 96.6 kg (213 lb) UfX661% Comment: room air at rest BMI 38.95 kg/m?? Immunization History Administered Date(s) Administered COVID-19 (MODERNA) 1st,2nd,3rd Dose Monovalent 11/21/2020, 12/19/2020, 01/11/2021, 11/17/2021 Flu Vaccine Quad PF >36MO 08/07/2017, 08/29/2018 Flu Vaccine Split Quad 08/19/2020 Fluzone >6mos 10/05/2016 Fluzone (or Fluarix & Flulaval for VFC) >6mos 08/07/2017, 08/29/2018, 08/29/2019, 08/26/2020 Hep A, Unspecified 09/07/2018 Hepatitis A 02/16/2018, 08/29/2018 INFLUENZA SPLIT TRI 09/02/2017, 08/18/2018, 08/17/2021 Influenza TIV (IM) 09/29/2015 Influenza, Unspecified 09/07/2018, 08/19/2020, 07/30/2023 Pneumococcal Conjugate 20-Valent (PCV20) 03/31/2024 Pneumococcal Polysaccharide (PPSV23) 09/07/2018 Shingrix 12/15/2019, 09/05/2021 Tdap 05/23/2016 Physical Exam Vitals reviewed. Constitutional: Appearance: She is well-developed. HENT: Head: Normocephalic and atraumatic. Eyes: Pupils: Pupils are equal, round, and reactive to light. Cardiovascular: Rate and Rhythm: Normal rate and regular rhythm. Heart sounds: No murmur heard. Pulmonary: Effort: Pulmonary effort is normal. No respiratory distress. Breath sounds: Normal breath sounds. No wheezing or rales. Abdominal: General: Bowel sounds are normal. There is no distension. Palpations: Abdomen is soft. Musculoskeletal: General: Normal range of motion. Cervical back: Normal range of motion and neck supple. Skin: General: Skin is warm and dry. Findings: No erythema. Neurological: Mental Status: She is alert and oriented to person, place, and time. Psychiatric: Behavior: Behavior normal. Result Review : Data reviewed : Compliance report Assessment and Plan Problem List Items Addressed This Visit Multi-system (Lupus, Sarcoid...) Sarcoidosis Pulmonary and Pneumonias Mild persistent asthma without complication Relevant Medications albuterol sulfate HFA 108 (90 Base) MCG/ACT inhaler Sleep MERON (obstructive sleep apnea) - Primary Ms. Kc here today to follow-up on compliance for her new BiPAP. She is doing reasonably well. Encouraged her to wear it nightly at least 4 to 6 hours. Will send over the compliance note to her DME, [employer]. She will continue on her Advair for her underlying asthma and albuterol as needed. She will be due routine annual follow-up in December for her sarcoidosis and asthma with full PFTs and a chest xray. Follow Up Return for Next scheduled follow up. Patient was given instructions and counseling regarding her condition or for health maintenance advice. Please see specific information pulled into the AVS if appropriate. I spent 34 minutes caring for Susan on this date of service. This time includes time spent by trinh the following activities:preparing for the visit, reviewing tests, obtaining and/or reviewing a separately obtained history, performing a medically appropriate examination and/or evaluation , counseling and educating the patient/family/caregiver, ordering medications, tests, or procedures, referring and communicating with other health director medicare sales , documenting information in the medicalrecord, and independently interpreting results and communicating that information with the patient/family/caregiver Excluding time spent on other separate services such as performing procedures or test interpretation, if applicable Moderate level of Medical Decision Making complexity based on 2 or more chronic stable illnesses and prescription drug management. Gabriella Mills APRN, ACNP [facility] [place] Pulmonary Critical Care Medicine documented in this encounter Plan of Treatment Upcoming Encounters Date Type Department Care Team (Late st Contact Info) Description 09/11/2025 11:30 AM EDT Office Visit [facility] [address] [place] [phone] José Miguel Kraus MD [address] [place] [address] 11/08/2025 11:00 AM EST Office Visit [facility] [address] [facility] [address] [place] [address] George Fuller MD [address] [facility] [place] [address] 12/31/2025 10:45 AM EST Registration [facility] [address] [facility] [place] [place] [address] 12/31/2025 11:00 AM EST Office Visit [facility] CRITICAL CARE MEDICINE [address] [place] [address] 12/31/2025 11:30 AM EST Office Visit [facility]ITICAL C[facility] MEDICINE [address] [place] [address] Gabriella Mills, FISH PROCESSING SUPERVISOR [address] [place] [address] documented as of this encounter Goals Goal [...] Procedure Name Priority Date/Time Associated Diagnosis Comments SCANNED - PULMONARY RESULTS 02/27/2025 SCANNED - PULMONARY RESULTS 02/27/2025 documented in this encounter Results * Pulmonary Results Scan (02/27/2025) us Gabriella Mills APRN PFT ORDERABLES Final Result * Pulmonary Results Scan (02/27/2025) us Gabriella Mills APRN PFT ORDERABLES Final Result documented in this encounter Visit Diagnoses Diagnosis MERON (obstructive sleep apnea)- Primary Obstructive sleep apnea (adult) (pediatric) Sarcoidosis Mild persistent asthma without complication documented in this encounter Care Teams Java Development Team Lead Relationship Specialty Start Date End Date Lara Torres APRN [address] [place] [address] PCP - General Family Medicine 06/22/24 documented as of this encounter
--- OUTSIDE RECORDS SUMMARY | 2025-04-29 06:00 | XMS_ITS ---
Author Organization [facility] Address [address] [place] [address] Care Team Providers Care Iuss Acoustic Analyst Name Role Phone Libertad Cary Unavailable [phone] Ivy Susan Unavailable [phone] Allergies Allergen (clinical drug ingredient) Drug/Non Drug [...] n-smoker Encounters Encounter Location Date Provider Diagnosis [facility] [address] [facility] [address] [place] [address] 04/29/2025 Susan Haynes Plan Of Treatment No Information Progress Notes * Susan KC FDOB: [birth year] (54 yo F)Acc No.[id number]:04/29/2025 Progress Note Patient: Susan Rosen Provider: Vic Haynes MD :1970 A ge:54 Y S ex:Female Date:04/29/2025 Address:[facility] [address] [facility] Subjective: * Chief Complaints: * A nnual * Medical History: Fibrocystic breasts Thyroid disease Asthma Acid reflux Ibs migraines Hypothroidism migraines Diverticulosis Osteoarthritis Fibromyalgia Anxiety/depression PTSD Stroke GERD Hypertension Liver disease Thyroid disease Lung problems * Release Manager History: M ammogram History: D ate of [...] Electronic signature of Rebecca Haynes MD on 06/12/2025 at 03:21 PM EDT Sign off status: Pending Visit Status: R /S (Rescheduled) * Provider: Vic Haynes MD Date: 0 04/29/2025 Generated for Matteo pino/Charles/Maria Ines on: 06/12/2025 03:21 PM EDT
--- OUTSIDE RECORDS SUMMARY | 2025-05-06 11:45 | XMS_ITS | Encounter Summary ---
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); Nontoxic multinodular goiter Social History Tobacco Use Types Packs/Day Years [...] 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 Thyroid levels ordered. Medication to be adjusted accordingly. * George Fuller MD - 05/06/2025 11:57 AM EDTAssociated Problem(s): Nontoxic multinodular goiter Stable on exam No intervention needed * George Fuller MD - 05/06/2025 11:45 AM EDT Images from the original note were not included. Office Note Date: 05/06/2025 Patient Name: Susan Kc : 1970 Chief Complaint Patient presents with Hypothyroidism History of Present Illness: Susan Kc is a 54 y.o. female who presents for Hypothyroidism . Current rx: 120 mg per day Changes in history: had some changes in her cholesterol medication Questions /problems:none fo rme Subjective Review of Systems: Review of Systems HENT: Positive for trouble swallowing. Cardiovascular: Negative for palpitations. Endocrine: Positive for cold intolerance. Musculoskeletal: Positive for myalgias. Neurological: Positive for tremors. Psychiatric/Behavioral: Negative for sleep disturbance. The following portions of the patient's history were reviewed and updated as appropriate: allergies, current medications, past family history, past medical history, past social history, past surgicalhistory, and problem list. Objective Visit Vitals BP 120/68 (BP Location: Left arm, Patient Position: Sitting, Cuff Size: Adult) Pulse 77 Ht 157.5 cm (62 ) Wt 96.6 kg (213 lb) LMP 11/23/2013 Comment: denies preg BMI 38.96 kg/m?? Physical Exam: Physical Exam Vitals reviewed. Constitutional: Appearance: Normal appearance. Eyes: Extraocular Movements: Extraocular movements intact. Neck: Comments: No palpable thyroid abnormality Lymphadenopathy: Cervical: No cervical adenopathy. Psychiatric: Mood and Affect: Mood normal. Thought Content: Thought content normal. Judgment: Judgment normal. Assessment / Plan Assessment & Plan: Problem List Items Addressed This Visit Hypothyroid - Primary Current Assessment & Plan .stable Clinically euthyroid. Thyroid levels ordered. Medication to be adjusted accordingly. Relevant Medications HOME DESIGNER Thyroid 60 MG tablet Other Relevant Orders TSH T4, Free T3, Free Nontoxic multinodular goiter Current Assessment & Plan Stable on exam No intervention needed Relevant Medications HOME DESIGNER Thyroid 60 MG tablet Electronically signed by : George Fuller MD 05/06/2025 documented in this encounter Plan of Treatment Upcoming Encounters Date Type Department Care Team (Late st Contact Info) Description 09/11/2025 11:30 AM EDT Office Visit [facility] [address] [place] [address] José Miguel Kraus MD [address] [facility] [address] [place] [address] 11/08/2025 11:00 AM EST Office Visit [facility] [address] [place] [id number] George Fuller MD [address] [place] [address] 12/31/2025 10:45 AM EST Registration [facility] PUL[facility] C[facility] MEDICINE [address] [place] [address] 12/31/2025 11:00 AM EST Office Visit [facility]UL[facility]ICAL CARE MEDICINE [address] [place] [address] 12/31/2025 11:30 AM EST Office Visit [facility] MEDIC[facility] [address] [place] [address] Gabriella Mills, KENNEL HAND [address] [place] [address] documented as of this encounter Goals Goal [...] Procedure Name Priority Date/Time Associated Diagnosis Comments T3, FREE Routine 05/06/2025 11:59 AM EDT 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 TSH Routine 05/06/2025 11:59 AM EDT 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 T4, FREE Routine 05/06/2025 11:59 AM EDT 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
[address] [place] [address], * T4, Free (05/06/2025 11:59 AM EDT) Free T4 1.43 0.92 - 1.68 ng/dL 05/07/2025 12:11 AM EDT [facility] Blood Structure of left upper limb / Unknown Venipuncture / Unknown 05/06/2025 11:59 AM EDT 05/06/2025 12:00 PM EDT us George Fuller MD LAB BLOOD ORDERABLES F inal Result Performing Organization Address City/[facility]/ZIP Co de Phone Number [facility]
[address] [place] [address], * (ABNORMAL) TSH (05/06/2025 11:59 AM EDT) TSH 4.600(H) 0.270 - 4.200 uIU/mL 05/07/2025 12:11 AM EDT [facility] Blood Structure of left upper limb / Unknown Venipuncture / Unknown 05/06/2025 11:59 AM EDT 05/06/2025 12:00 PM EDT George Fuller MD LAB BLOOD ORDERABLES F inal Result [facility]
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
--- OUTSIDE RECORDS SUMMARY | 2025-06-05 07:15 | XMS_ITS ---
Author Organization [facility] Address [address] [place] [address] Care Team Providers Care Trim Master Operator Name Role Phone Libertad Cary Unavailable [phone] Ivy Susan Unavailable [phone] Allergies Allergen (clinical drug ingredient) Drug/Non Drug Allergy documented on EMR Reaction Allergy Type Onset Date Status Shellfish (FN) SHELLFISH (uncoded) Unspecified Allergy Active Results Component Value Reference Range Notes CT/NG/Yoly/BV/Trich (Apti ma) Reviewed date:06/07/2025 09:29:06 AM Interpretation:Normal Performing Lab:Julian RAO [facility] CLIA ID [id number], [address], [address], [place] [address], Director - Doc Toledo MD Notes/Report: Chlamydia Trachomatis Negative Negative Neisseria Gonorrhoeae Negative Negative Bacterial Vaginosis Negative Negative The Aptima BV assay is a real time NAAT TMA assay developed for use on the automated [place] system that detects and discriminates RNA markers from the Lactobacillus species group (L. gasseri, L. crispatus and L. jensenii), Gardnerella vaginalis, and Atopobium vaginae. The Aptima BV assay uses an algorithm for bacterial vaginosis based on detection of target organisms. Yoly species Negative Negative The CV Assay is a real time TMA assay developed for use on the automated [place] system that detects following Yoly species organisms (C. albicans, C. tropicalis, C. parapsilosis, C. dubliniensis), but the assay does not differentiate among C spp. Yoly glabrata Negative Negative Trichomonas Negative Negative Wet Mount - In House Reviewed date:06/07/2025 11:02:37 AM Interpretation:Abnormal Performing Lab: Notes/Report: REASON FOR VISIT Annual Medications Medication SIG (Take, Route, Frequency, Duration) Notes Start Date End Date Status Thyroid Active Sucraid Active oxyBUTYnin Active Sertraline HCl Activ e Ursodiol Active Nitroglycerin Active Midodrine HCl Active Nasal Active Nexlizet Active Omeprazole Active Methocarbamol Active Dave Aspirin Active busPIRone HCl Active Estradiol 1 MG Tablet 1 tablet Orally On ce a day; Duration: 90 days Active Levocetirizine-Loratadine Active Albuterol Active Atorvastatin Calcium Active Azelastine HCl Activ e Clindamycin Phosphate 2 % Cream 1 applicator Vaginal Once a day; Duration: 7 days 06/05/2025 Active Advair HFA Active Xyzal Active Wellbutrin XL Active Social History Tobacco Use: Social History Observation [...] Additional Findings: Tobacco Non-User Current no n-smoker Vital Signs Blood pressure systolic 122 mm Hg 06/05/20 25 Blood pressure diastolic 72 mm Hg 025 Height 62 in 06/05/2025 Weight 215 lbs 06/05/2025 BMI 39.32 kg/m2 06/05/2025 Encounters Encounter Location Date Provider Diagnosis [facility] [address] [facility] [address] [place] [address] 06/05/2025 Susan Haynes Assistant Administrator exam without abnormal findings Z01.419 ; Visit for screening mammogram Z12.31 and Vaginal discharge N89.8 Assessments Encounter Date Diagnosis (ICD Code) Assessment Notes Treatment Notes Treatment Clinical Notes Section Notes 06/05/2025 Assistant Administrator exam without abnormal findings (ICD-10 - Z01.419) 06/05/2025 Visit for screening mammogram (ICD-10 - Z12.31) 06/05/2025 Vaginal discharge (ICD-10 - N89.8) Wet prep consistent with bacterial vaginosis. Trial of vaginal clindamycin x 7 days. Cultures sent for verification. Disposition accordingly. Plan Of Treatment Medication Medication Name Sig Start Date Stop Date Notes Clindamycin Phosphate 2 % Cream 1 applicator Vaginal Once a day; Duration: 7 days 06/05/2025 Treatment Notes Assessment Notes Vaginal discharge Wet prep consistent with bacterial vaginosis. Trial of vaginal clindamycin x 7 days. Cultures sent for verification. Disposition accordingly. Next Appt Details Follow Up: 1 Year,prn, Reaso n: History and Physical Notes * HPI (History of Present Illness) Category Sub-Category Detail Notes Category Not es RIPPLER Susan Kc, a 54-year-old female, presented for a chronic condition follow-up focused on concerns of vaginal odor. She reported that the odor has been present for quite a while, spanning weeks, months, or even years. She expressed hesitation to self-treat due to worries about potential interactions with her current medications and overall health conditions. She denied any abnormal discharge, irritation, lumps, bumps, or sores. The patient also discussed her chronic health challenges, noting that some of her symptoms may be related to menopause or fibromyalgia. She acknowledged the complexity of her health situation and the overlapping nature of her conditions. Finally, Susan highlighted the significant impact her health has had on her daily life, stating that she is unable to work and is currently on disability insurance. She finds it difficult to manage her health, and this has contributed to her inability to maintain employment. Examination Category Sub-Category Detail Notes Category Not es Genitourinary Examination - Female VAGINA: Normal appearance for age, n o significant discharge, lesions, or masses present limited by body habitus CERVIX: surgically absent UTERUS: surgically absent BLADDER: Normal and nontender to palpation ADNEXA: No masses or tendern ess bilaterally EXTERNAL GENITALIA: Normal appearance fo r age, no erythema or skin lesions present URETHRA/URETHRAL MEATUS: Normal in appea rosie, nontender without mass effect PERINEUM: Normal in appearance without lesion PELVIC LYMPH NODES: No lymphadenopathy General Examination GENERAL APPEARANCE: Well dev eloped, well nourished, alert in no acute distress NEURO/PSYCH: Oriented to person, place, and time. Mood pleasant, normal affect CARDIOPULMONARY: Respiratory effort i s even and unlabored ABDOMINAL/GASTROINTESTINAL: Abdomen nont patricia, no masses palpated Rotary Dump Operator Rotary Dump Operator Status ., Rotary Dump Operator pr esent during physical exam. Name: Title: JUAN CRUSHER FEEDER , MJONES, BODY SHOP MECHANIC Breast Examination BREASTS: Breast normal . No evidence of mass, skin changes, nipple retraction or discharge AXILLARY LYMPH NODES: No lymphadenopathy Progress Notes * Susan KC FDOB: [birth year] (54 yo F)Acc No.[id number]:06/05/2025 Progress Note Patient: Susan Rosen Provider: Vic Haynes MD :1970 A ge:54 Y S ex:Female Date:06/05/2025 Address:[address] [place] [address] Subjective: * Chief Complaints: * A nnual * HPI: A nnual: 54 year old female presents with c/o Annual Exam. G YN: Susan Kc, a 54-year-old female, presented for a chronic condition follow- up focused on concerns of vaginal odor. She reported that the odor has been present for quite a while, spanning weeks, months, or even years. She expressed hesitation to self-treat due to worries about potential interactions with her current medications and overall health conditions. She denied any abnormal discharge, irritation, lumps, bumps, or sores. The patient also discussed her chronic health challenges, noting that some of her symptoms may be related to menopause or fibromyalgia. She acknowledged the complexity of her health situation and the overlapping nature of her conditions. Finally, Susan highlighted the significant impact her health has had on her daily life, stating that she is unable to work and is currently on disability insurance. She finds it difficult to manage her health, and this has contributed to her inability to maintain employment. * Medical History: Hypothyroidism Asthma Acid reflux IBS Migraine Diverticulosis Osteoarthritis Fibromyalgia Anxiety/depression PTSD Stroke Hypertension Liver disease Lung problems Medical History Verified * Assistant Administrator History: M ammogram History:Date of last mammogram: , Results/Density BIRADS 1 .? M enstrual History: L MP: H ysterectomy D uration: 7 L ast Mammogram Date (Historical) 0 08/04/2020. L ast Pap Smear/HPV Date (Historical) 0 01/03/2018 negative. * OB History: G P : 0 * Surgical History: Hysterectomy with BSO 2013 hysteroscopy, hand sx, colonoscopy L foot sx 11/04/16 PFO repair 05/2019 Right Knee Surgical History verified. * Hospitalization/Major Diagno stic Procedure: No Hospitalization Documented. Hospitalization Verified. * Family History: F amily History Verified.. breast cancer--maternal aunt. * Social History: T [...] P oints 1 I nterpretation N egative S ocial History Verified. * Medications: T akingAdvair HFA Albuterol Atorvastatin Calcium Azelastine HCl Dave Aspirin busPIRone HCl Estradiol 1 MG Tablet 1 tablet Orally Once a day Levocetirizine-Loratadine Methocarbamol Midodrine HCl Nasal Nexlizet Nitroglycerin Omeprazole oxyBUTYnin Sertraline HCl Sucraid Thyroid Ursodiol Wellbutrin XL Xyzal Taking Advair HFA Taking Albuterol Taking Atorvastatin Calcium Taking Azelastine HCl Taking Dave Aspirin Taking busPIRone HCl Taking Estradiol 1 MG Tablet 1 tablet Orally Once a day Taking Levocetirizine-Loratadine Taking Methocarbamol Taking Midodrine HCl Taking Nasal Taking Nexlizet Taking Nitroglycerin Taking Omeprazole Taking oxyBUTYnin Taking Sertraline HCl Taking Sucraid Taking Thyroid Taking Ursodiol Taking Wellbutrin XL Taking Xyzal DiscontinuedAtivan Librax LORazepam Metoprolol Succinate ER rOPINIRole HCl ER Vitamin B12 Vitamin D Vitamin E Medication List reviewed and reconciled with the patientDiscontinued Ativan Discontinued Librax Discontinued LORazepam Discontinued Metoprolol Succinate ER Discontinued rOPINIRole HCl ER Discontinued Vitamin B12 Discontinued Vitamin D Discontinued Vitamin E Medication List reviewed and reconciled with the patient * Allergies: S HELLFISH: Unspecified - Allergy - Onset Date [id number] Verified. Objective: * Vitals: B P:122/72mm Hg, Ht: 62 in, Wt:215lbs, BMI:39.32Index. * Examination: G eneral Examination: GENERAL APPEARANCE: W ell developed, well nourished, alert in no acute distress. NEURO/PSYCH: O riented to person, place, and time. Mood pleasant, normal affect. CARDIOPULMONARY: R espiratory effort is even and unlabored. ABDOMINAL/GASTROINTESTINAL: A bdomen nontender, no masses palpated. B reast Examination: BREASTS: B reast normal. No evidence of mass, skin changes, nipple retraction or discharge. AXILLARY LYMPH NODES: N o lymphadenopathy. G enitourinary Examination - Female: EXTERNAL GENITALIA: N ormal appearance for age, no erythema or skin lesions present. URETHRA/URETHRAL MEATUS: N ormal in appearance, nontender without mass effect. BLADDER: N ormal and nontender to palpation. VAGINA: N ormal appearance for age, no significant discharge, lesions, or masses present. CERVIX: s urgically absent. UTERUS: s urgically absent. ADNEXA: N o masses or tenderness bilaterally. PERINEUM: N ormal in appearance without lesion. PELVIC LYMPH NODES: N o lymphadenopathy. l imited by body habitus. C haperone: Rotary Dump Operator Status . , Rotary Dump Operator present during physical exam. Name: Title: JUAN MONTERO , NATI, BODY SHOP MECHANIC. Assessment: * Assessment: 1. G yn exam without abnormal findings - Z01.419 (Primary) 2 . V isit for screening mammogram - Z12.31 3 . V aginal discharge - N89.8 Plan: * Treatment: Value Reference Range T richomonas Exam Negative Negative - * Y east Exam Negative Negative - * C lue Cell Exam Positive A Negative - * W hiff Test Positive A Negative - * p H > 4.5 A 4.0, 4.5 - * I nterpretation BV - ?LAB: CT/NG/Yoly/BV/Trich (Aptima) (Collection Date & Time - 06/05/2025 11:26 AM) Notes: Wet prep consistent with bacterial vaginosis. Trial of vaginal clindamycin x 7 days. Cultures sent for verification. Disposition accordingly.??? * Procedure Codes: 8 7210 Smear, primary source with interpretation; wet mount for infectious agents (eg, saline, Anai ink, JILL preps), Modifiers: QW 89636 pH, body [id number] Pelvic examination [List separately in addition to code for primary procedure]76968 Whiff (amines, vaginal fluid, Qual)36767 Pelvic examination [List separately in addition to code for primary procedure] * Preventive Medicine: Counseling: R outine Preventative Care: R maribeth ACOG guidelines for preventative exams and pap smears. Preventative health guidelines discussed breast cancer, colon cancer, and osteoporosis screening and prevention as appropriate. Counseled on safe sex practices including control and prevention of sexually transmitted infections as appropriate. B CO care goal follow-up plan: BMI management provided Y es Discussed importance of healthy BMI?Yes S moking: Type of Tobacco Use Cessation Counseling provided C ounseled if indicated * Follow Up: 1 Year,prn Billing Information: * Visit Code: 73738 Est Pt Annual 40-64 yr old. [address] Office/Outpatient visit, est patient. Modifiers: 25 * Procedure Codes: 74236 Smear, primary source with interpretation; wet mount for infectious agents (eg, saline, Anai ink, JILL preps). Modifiers: QW 37266 pH, body fluid. 08517 Pelvic examination [List separately in addition to code for primary procedure]. 90958 Whiff (amines, vaginal fluid, Qual). 21887 Pelvic examination [List separately in addition to code for primary procedure]. * Sign off status: Completed Visit Status: C HK (Check Out) true * Provider: Vic Haynes MD Date: 06/05/2025 Generated for Matteo pino/Charles/Airamitting on: 06/12/2025 03:22 PM EDT
--- OUTSIDE RECORDS SUMMARY | 2025-06-12 15:20 | XMS_ITS | Patient Health Record ---
Author Organization [facility] Address [address] [place] [address] Care Team Providers Care Billboard Erector Name Role Phone Libertad Cary Unavailable [phone] Ivy Susan Unavailable [phone] Allergies Allergen (clinical drug ingredient) Drug/Non Drug Allergy documented on EMR Reaction Allergy Type Onset Date Status Shellfish (FN) SHELLFISH (uncoded) Unspecified Allergy Active Results Component Value Reference Range Notes CT/NG/Yoly/BV/Trich (Apti ma) Reviewed date:06/07/2025 09:29:06 AM Interpretation:Normal Performing Lab:Julian RAO [facility] CLIA ID [id number], [address], [address], [place] [address], Director - Doc Toledo MD Notes/Report: Chlamydia Trachomatis Negative Negative Neisseria Gonorrhoeae Negative Negative Bacterial Vaginosis Negative Negative (L. gasseri, L. crispatus and L. jensenii), Gardnerella vaginalis, and Atopobium vaginae. The Aptima BV assay is a real time NAAT TMA assay developed for use on the automated Mcclellan detection of target organisms. The Aptima BV assay uses an algorithm for bacterial vaginosis based on system that detects and discriminates RNA markers from the Lactobacillus species group Yoly species Negative Negative system that detects following Yoly species organisms (C. albicans, C. tropicalis, C. parapsilosis, C. dubliniensis), but the assay does not differentiate among C spp. The CV Assay is a real time TMA assay developed for use on the automated Mcclellan Yoly glabrata Negative Negative Trichomonas Negative Negative [place] - In House Reviewed date:06/07/2025 11:02:37 AM Interpretation:Abnormal Performing Lab: Notes/Report: MAMMO SCREENING DIGITAL ARIEL SYNTHESIS BILATERAL W [...] Duration) Notes Start Date End Date Status Albuterol Active Nitroglycerin Active Thyroid Active Xyzal Active Atorvastatin Calcium Active Azelastine HCl Activ e Methocarbamol Active Midodrine HCl Active Nasal Active Sucraid Active Clindamycin Phosphate 2 % Cream 1 applicator Vaginal Once a day; Duration: 7 days 06/05/2025 Active Advair HFA Active Nexlizet Active Dave Aspirin Active busPIRone HCl Active oxyBUTYnin Active Estradiol 1 MG Tablet 1 tablet Orally On ce a day; Duration: 90 days Active Levocetirizine-Loratadine Active Sertraline HCl Activ e Ursodiol Active Omeprazole Active Wellbutrin XL Active Social History Tobacco [...] Current no n-smoker Vital Signs Blood pressure diastolic 72 mm Hg 06/05/2025 Height 62 in 06/05/2025 Blood pressure systolic 122 mm Hg 06/05/2025 Weight 215 lbs 06/05/2025 BMI 39.32 kg/m2 06/05/2025 Encounters Encounter Location Date Provider Diagnosis [facility] [address] [place] [address] 06/05/2025 Susan Haynes [employer] Wa[employer]aker exam without abnormal findings Z01.419 ; Visit for screening mammogram Z12.31 and Vaginal discharge N89.8 Assessments Encounter Date Diagnosis (ICD Code) Assessment Notes Treatment Notes Treatment Clinical Notes Section Notes 06/05/2025 [employer] Wa[employer] exam without abnormal findings (ICD-10 - Z01.419) 06/05/2025 Visit for screening mammogram (ICD-10 - Z12.31) 06/05/2025 Vaginal discharge (ICD-10 - N89.8) Wet prep consistent with bacterial vaginosis. Trial of vaginal clindamycin x 7 days. Cultures sent for verification. Disposition accordingly. Plan Of Treatment No Information Insurance Providers Payer Name Payer Address Payer Phone Subscriber Number Group Number Insured Name Patient Relationship to Insured Coverage Start Date Coverage End Date Medicare [place] [address] [id number] Susan Kc Self - patient is the insured [employer] P[employer] [address] [place] [address] [id number] Susan Kc Self - patient is the insured Medical (General) History Medical History History ICD Code Hypothyroidism Asthma Acid reflux IBS Migraine Diverticulosis Osteoarthritis Fibromyalgia Anxiety/depression PTSD Stroke Hypertension Liver disease Lung problems Surgical History Surgery Date(Month/Year) Hysterectomy with BSO 2013 hysteroscopy, hand sx, colonoscopy L foot sx 11/04/16 PFO repair 05/2019 Right Knee
--- OUTSIDE RECORDS SUMMARY | 2025-06-12 15:21 | XMS_ITS ---
Author Organization [facility] Address [address] [place] [address] Care Team Providers Care Water Quality Technician Name Role Phone Lara Torres APRN Primary Care Provider [phone] Cardiology Lite - External Fill Status:Enrolled (Active) Start date:03/20/2025 Enrollment date:03/20/2025 Enrollment reason:New start at Current support & services provided:Benefits Investigation, External Pharmacy Dispensing Linked medications:Bempedoic Acid-Ezetimibe (Active) Linked problems:Mixed hyperlipidemia (Active) Case Team Name Relationship Phone Alem Bai PharmD Pharmacist [phone] José Miguel Kraus MD Consulting Physician [phone] Continued Care and Services Coordination
--- OUTSIDE RECORDS SUMMARY | 2025-06-12 15:21 | XMS_ITS | Clinical Summary ---
Author Organization [facility] Address [address] [place] [address] Care Team Providers Care Blade Boner Name Role Phone Lara Torres LEONID Primary Care Provider [phone] Allergies Active Allergy Reactions Criticality Noted Date Comments [place] Hives High 04/16/2025 Shellfish-Derived Products Other (See Comments) Medium 09/09/2016 Pt was tested for allergies. Does not know reaction due to never eating any seafood-did not want to chance it Medications omeprazole (priLOSEC) 20 MG capsule TAKE 2 CAPSULES BY MOUTH ONCE DAILY NEEDED 30 capsule 07/09/20 21 Active Additional Information Patient taking differently: 20 mg Oral Daily, Reported on 05/06/2025 nitroglycerin (NITROSTAT) 0.4 MG SL tablet 1 under the tongue as needed for angina, may repeat q5mins for up three doses 25 tablet 2 11/30/19 22 Active levocetirizine (XYZAL) 5 MG tablet Take 1 tablet by mouth As Needed. 03/04/20 22 Active rOPINIRole (REQUIP) 1 MG tablet Take 1 tablet by mouth Every Night. 08/11/20 22 Active ursodiol (ACTIGALL) 500 MG tablet Take 1 tablet by mouth 2 (Two) Times a Day. 10/20/20 22 Active estradiol (ESTRACE) 1 MG tablet Take 1 tablet by mouth Daily. Active Sucraid 8500 UNIT/ML solution Take by mouth 3 (Three) Times a Day. 3 times daily with 3 additional doses PRN 09/05/20 Active busPIRone (BUSPAR) 30 MG tablet Take 1 tablet by mouth Every 12 (Twelve) Hours. 08/15/20 Active atorvastatin (LIPITOR) 80 MG tablet Take 1 tablet by mouth Daily. Active midodrine (PROAMATINE) 5 MG tablet Take 1 tablet by mouth twice daily 180 tablet 3 11/05/20 Active sertraline (ZOLOFT) 100 MG tablet Take 1 tablet by mouth Daily. Active aspirin (Dave Aspirin EC Low Dose) 81 MG EC tablet Take 1 tablet by mouth Daily. 12/19/19 25 Active fluticasone-salmet isabel (ADVAIR HFA) 45-21 MCG/ACT inhaler Inhale 2 puffs 2 (Two) Times a Day. 12 g 11 01/07/20 25 Active Azelastine HCl 137 MCG/SPRAY solution 2 sprays by Alternating Nares route Daily. 03/08/20 Active buPROPion XL (WELLBUTRIN XL) 150 MG 24 hr tablet Take 1 tablet by mouth Daily. 02/12/20 Active methocarbamol (ROBAXIN) 750 MG tablet Take 1 tablet by mouth 3 (Three) Times a Day. Active ipratropium (ATROVENT) 0.03 % nasal spray USE 2 SPRAY(S) IN EACH NOSTRIL TWICE DAILY 02/16/20 Active oxybutynin (DITROPAN) 5 MG tablet Take 1 tablet by mouth Daily. Active albuterol sulfate HFA 108 (90 Base) MCG/ACT inhaler Inhale 2 puffs Every 4 (Four) Hours As Needed for Wheezing. 18 g 3 04/16/20 Active multivitamin with minerals tablet tablet Take 1 tablet by mouth Daily. Active Thyroid (WHEEL SETTER THYROID) 60 MG PO tabletIndications: Acquired hypothyroidism Take 2 tablets by mouth Daily. 60 tablet 11 05/07/20 Active Bempedoic Acid-Ezetimibe 180-10 MG tablet Take 1 tablet by mouth Daily. 90 tablet 3 05/13/20 Active Active Problems Problem Noted Date Diagnosed Date Mixed hyperlipidemia 09/14/2024 Precordial chest pain 08/31/2024 Abnormal findings on diagnos tic imaging of heart and coronary circulation 08/31/2024 Autonomic orthostatic hypotension 07/09/2024 Hyperglycemia 10/28/2023 Assessment & Plan (10/28/2023 9:41 AM EST): HER NEW MEDICATION FOR CAN CAUSE INCREASED BLOOD SUGAR SO WE NEED TO CHECK A1C Seasonal allergic rhinitis due to pollen 021 Mild persistent asthma without complication 11/2020 Nontoxic multinodular goiter 11/10/2020 Assessment & Plan (05/06/2025 11:57 AM EDT): Stable on exam No intervention needed Assessment & Plan (11/11/2021 12:57 PM EST): Stable on exam Will need annual neck exam for follow up Assessment & Plan (11/10/2020 1:18 PM EST): Granular gland has no dominant Nodules. Stable PFO (patent foramen ovale) 05/22/2019 Overview (05/22/2019): Added automatically from request for surgery [id number] Left-sided weakness 04/16/2019 Impaired functional mobility, balance, gait, and endurance 04/16/2019 Overview (04/16/2019): Continue with PT [facility] in [place], [place] Migraine without aura and wi [facility] status migrainosus, not intractable 03/13/2019 Hypothyroid 03/12/2019 Assessment & Plan (05/06/2025 11:57 AM EDT): .stable Clinically euthyroid. Thyroid levels ordered. Medication to be adjusted accordingly. Assessment & Plan (10/31/2024 11:24 AM EST): Clinicall worse. Has symptoms that are worse and she has not been consistent with her meds. Plan : check levels and adjust from there Assessment & Plan (10/28/2023 9:43 AM EST): Thyroid levels are fine. No changes are needed Assessment & Plan (11/12/2022 10:56 AM EST): Unchanged Symptoms suggest she is on too much medication. Will check levels and adjust Assessment & Plan (11/11/2021 12:57 PM EST): Clinically euthyroid. Thyroid levels ordered. Medication to be adjusted accordingly. Assessment & Plan (11/10/2020 1:18 PM EST): Clinically euthyroid.. 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 (Primary Dx); Nontoxic multinodular goiter 05/06/2025 Travel 05/01/2025 Refill [facility] [address] [facility] [address] [place] [address] Ramona Rascon MD Med Refill 04/16/2025 11:30 AM EDT Office Visit [facility] [address] [place] [address] Gabriella Mills, LEONID MERON (obstructive sleep apnea) (Primary Dx); Sarcoidosis; Mild persistent asthma without complication 04/16/2025 Travel 04/07/2025 Refill [facility] [address] [address] George Fuller MD Acquired hypothyroidism from Last 3 Months Immunizations Immunization Administration Dates Next Due COVID-19 (MODERNA) 1st,2nd,3 rd Dose Monovalent 11/17/2021,01/11/2021,12/19/2020,11/21 Flu Vaccine Quad PF >36MO 08/29/2018,08/07/2017 Flu Vaccine Split Quad 08/19/2020 Fluzone >6mos 10/05/2016 Fluzone (or Fluarix & Flulav al for VFC) >6mos 08/26/2020,08/29/2019,08/29/2018,08/07 Hep A, Unspecified 09/07/2018 Hepatitis A 08/29/2018,02/16/2018 INFLUENZA SPLIT TRI 08/17/2021,08/18/2018,2016 Influenza TIV (IM) 09/29/2015 Influenza, Unspecified 07/30/2023,08/19/2020, Pneumococcal Conjugate 20-Va lent (PCV20) 03/31/2024 Pneumococcal Polysaccharide (PPSV23) 09/07/2018 Shingrix 09/05/2021,12/15/2019 Tdap 05/23/2016 Family History Medical History Relation Name Comments Hypertension Brother 2 Duc Hypertension Brother 3 Duc Migraines Brother 3 Duc Hypertension Father Greg Breast cancer Maternal Aunt 1 Breast cancer Maternal Aunt 2 GREAT Diabetes Maternal Grandmother Roro Heart failure Maternal Grandmother Roro Hypertension Maternal Grandmother Roro Migraines Maternal Grandmother Roro Hypertension Maternal Uncle Isidro COPD Mother Nieves Diabetes Mother Nieves Hypertension Mother Nieves Migraines Mother Nieves Skin cancer Mother Nieves Colon cancer Other Hypertension Sister 2 Arlette Hypertension Sister 3 Arlette Migraines Sister 3 Arlette Ovarian cancer Neg Hx Relation Name Status Comments Brother 1 Alive Brother 2 Duc Brother 3 Duc Alive Father Greg Alive no contact Maternal Aunt 1 Maternal Aunt 2 GREAT Maternal Grandmother Roro Alive Maternal Uncle Isidro Alive Mother Nieves Alive Other Sister 1 Alive Sister 2 Arlette Sister 3 Arlette Alive Social History Tobacco Use Types Packs/Day Years [...] 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 Not on file Not on file Last Filed Vital Signs Vital Sign Reading Time Taken Comments Blood Pressure 120/68 05/06/2025 11:42 AM EDT Pulse 77 05/06/2025 11:42 AM EDT Temperature 36.6 C (97.8 F) 04/16/2025 11:10 AM EDT Respiratory Rate 16 09/13/2024 2:42 PM EDT Oxygen Saturation 96% 04/16/2025 11: 10 AM EDT room air at rest Inhaled Oxygen Concentration - - Weight 96.6 kg (213 lb) 05/06/2025 11:4 2 AM EDT Height 157.5 cm (5' 2 ) 05/06/2025 11:4 2 AM EDT Body Mass Index 38.96 05/06/2025 11:42 AM EDT Plan of Treatment Upcoming Encounters Date Type Department Care Team (Late st Contact Info) Description 09/11/2025 11:30 AM EDT Office Visit [facility] [address] [facility] [address] [place] [address] José Miguel Kraus MD [address] [place] [address] 11/08/2025 11:00 AM EST Office Visit [facility] [address] [facility] [address] [place] [address] George Fuller MD [address] [facility] [address] [place] [address] 12/31/2025 10:45 AM EST Registration [facility] [address] [place] [address] 12/31/2025 11:00 AM EST Office Visit [facility] [address] [place] [address] 12/31/2025 11:30 AM EST Office Visit [facility] [address] [place] [address] Gabriella Mills, LOAN ORIGINATOR [address] [place] [address] Health Maintenance Due Date Last Done Comments Annual Gynecologic Pelvic an d Breast Exam 1970 COLOGUARD 2014 COLON CANCER SCREENING 5 YEA R SIGMOIDOSCOPY [address] CT COLONOGRAPHY 2014 FECAL OCCULT BLOOD TEST 2014 FIT Testing (1 year) 2014 ANNUAL WELLNESS VISIT 07/18/2017 HEPATITIS C SCREENING 07/18/2017 COVID-19 Vaccine (5 - 4-2 5 season) 2024 11/17/2021, 01/11/2021, 12/19/2020, Additional history exists INFLUENZA VACCINE 08/14/2025 07/30/2023, , 08/26/2020, Additional history exists LIPID PANEL 09/13/2025 09/13/2024, 09/15, 03/13/2019, Additional history exists TDAP/TD VACCINES (2 - Td or Tdap) 05/23/2026 016 MAMMOGRAM 07/05/2026 07/05/2024, 06/14, 09/29/2022, Additional history exists COLONOSCOPY 09/28/2033 09/28/2023, 11/14/2022 COLORECTAL CANCER SCREENING 09/28/2033 ZOSTER VACCINE Completed 09/05/2021, 12/15/2019 Pneumococcal Vaccine 50+ Completed 03/31/2024, 08/15 Goals Goal Patient Goal Type Associated Problems Recent Progress Patient-Stated? Author Specialty Pharmacy General Goal General No Alem Bai, PharmD Note: LDL Goal < 100 mg/dL Lab Results Component Value Date LDL 273 (H) 09/13/2024 LDL 127 (H) 10/03/2019 LDL 225 (H) 03/13/2019 LDL 166 (H) 08/25/2016 Medical Devices Implanted Type Area Milking System Installer Device Identifier Shelf Expiration Date Model / Serial / Lot Occl Pfo Amplatzer Cvr 45d 8f 25mm - [id number] Implanted:Qty: 1 on 05/31/2019 by José Miguel Kraus MD at [facility] [id number] / / Description:720 g/cm Procedures Procedure Name Priority Date/Time Associated Diagnosis Comments T3, FREE Routine 05/06/2025 11:59 AM EDT 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 Blood Structure of left upper limb / Unknown Venipuncture / Unknown 05/06/2025 11:59 AM EDT 05/06/2025 12:00 PM EDT George Fuller MD LAB BLOOD ORDERABLES F inal Result Performing Organization Address [facility]/ZIP Co de Phone Number [facility]
[address] [place] [address], * (ABNORMAL) TSH (05/06/2025 11:59 AM EDT) [facility] TSH 4.600(H) 0.270 - 4.200 uIU/mL 05/07/2025 12:11 AM EDT [facility] Blood Structure of left upper limb / Unknown Venipuncture / Unknown 05/06/2025 11:59 AM EDT 05/06/2025 12:00 PM EDT George Fuller MD LAB BLOOD ORDERABLES F inal Result [facility]
[address] [place] [address], * T4, Free (05/06/2025 11:59 AM EDT) Pathologist [facility] Free T4 1.43 0.92 - 1.68 ng/dL 05/07/2025 12:11 AM EDT [facility] Blood Structure of left upper limb / Unknown Venipuncture / Unknown 05/06/2025 11:59 AM EDT 05/06/2025 12:00 PM EDT George Fuller MD LAB BLOOD ORDERABLES F inal Result [facility]
[address] [place] [address], * (ABNORMAL) Lipid Panel (09/13/2024 10:33 AM EDT) Total Cholesterol 377(H) 0 - 200 mg/dL 09/13/2024 11:43 AM EDT [facility] Triglycerides 235(H) 0 - 150 mg/dL 09/13/2024 11:43 AM EDT [facility] HDL Cholesterol 54 40 - 60 mg/dL 09/13/2024 11:43 AM EDT [facility] LDL Cholesterol 273(H) 0 - 100 mg/dL 09/13/2024 11:43 AM EDT [facility] VLDL Cholesterol 50(H) 5 - 40 mg/dL 09/13/2024 11:43 AM EDT [facility] LDL/HDL Ratio 5.11 09/13/2024 11:43 AM EDT [facility] Blood Line / Unknown 09/13/2024 10 :33 AM EDT 09/13/2024 10:48 AM EDT Narrative [facility] - 09/13/2024 11:43 AM EDT Cholesterol Reference Ranges (U.S. Department of Health and Human Services ATP III Classifications) Desirable <200 mg/dL Borderline High 200-239 mg/dL High Risk >240 mg/dL Triglyceride Reference Ranges (U.S. Department of Health and Human Services ATP III Classifications) Normal <150 mg/dL Borderline High 150-199 mg/dL High 200-499 mg/dL Very High >500 mg/dL HDL Reference Ranges (U.S. Department of Health and Human Services ATP III Classifications) Low <40 mg/dl (major risk factor for CHD) High >60 mg/dl ('negative' risk factor for CHD) LDL Reference Ranges (U.S. Department of Health and Human Services ATP III Classifications) Optimal <100 mg/dL Near Optimal 100-129 mg/dL Borderline High 130-159 mg/dL High 160-189 mg/dL Very High >189 mg/dL Suzanne Bowles APRN LAB BLOOD ORDERABLES Final R esult [facility]
[address] [place] [address], * Mammo Screening Digital Tomosynthesis Bilateral With CAD (07/05/2024 1:47 PM EDT) Anatomical Region Laterality Modality Breast N/A Mammography 07/11/2024 2:40 PM EDT Impressions 07/11/2024 2:41 PM EDT No suspicious abnormality identified. OVERALL ASSESSMENT: ACR [...] 07/11/2024 2:41 PM by Karen Mota MD. Narrative 07/11/2024 2:41 PM EDT BILATERAL DIGITAL SCREENING MAMMOGRAM WITH TOMOSYNTHESIS CLINICAL INDICATION: Screening mammogram. TECHNIQUE: Bilateral low dose full field digital breast tomosynthesis imaging was performed. CAD was utilized. COMPARISON: Prior studies dating back to 09/06/2014 FINDINGS: There are scattered fibroglandular densities RIGHT BREAST: No suspicious masses, calcifications, or areas of distortion are seen. LEFT BREAST: No suspicious masses, calcifications, or areas of distortion are seen. Libertad Cary MD IMG MAMMOGRAPHY ORDERABLES Fi nal Result from Last 3 Months or Most Recently Relevant to Health Maintenance Insurance [employer] BLUE [employer]IELD PPO MEDICARE A & B Advance Directives Documents on File Type Date Recorded Patient Validation Leader Expl anation LIVING WILL - SCAN 05/30/2019 11:31 AM VON ING WILL 05/25/2019 POWER OF AGRICULTURAL AGENT - SCAN 05/30/2019 11:31 AM POWER OF AGRICULTURAL AGENT 05/25/2019 * CPR (Attempt to Resuscitate) (Latest Code Status on File) Date Activated Date Inactivated Comments 09/13/2024 3:30 PM 09/13/2024 10:28 PM Question Answer Comments Code Status (Patient has no pulse and is not breathing): CPR (Attempt to Resuscitate) Medical Interventions (Patie nt has pulse or is breathing): Full Support * CPR (Attempt to Resuscitate) Date Activated Date Inactivated Comments 10/02/2019 8:09 PM 10/03/2019 7:32 PM Question Answer Comments Code Status (Patient has no pulse and is not breathing): CPR (Attempt to Resuscitate) Medical Interventions (Patie nt has pulse or is breathing): Full Level Of Support Discussed With: Patient * CPR (Attempt to Resuscitate) Date Activated Date Inactivated Comments 05/31/2019 1:52 PM 05/31/2019 9:17 PM Question Answer Comments Code Status (Patient has no pulse and is not breathing): CPR (Attempt to Resuscitate) Medical Interventions (Patie nt has pulse or is breathing): Full * CPR (Attempt to Resuscitate) Date Activated Date Inactivated Comments 03/12/2019 5:22 PM 03/14/2019 7:08 PM Question Answer Comments Code Status (Patient has no pulse and is not breathing): CPR (Attempt to Resuscitate) Medical Interventions (Patie nt has pulse or is breathing): Full Level Of Support Discussed With: Patient Healthcare Agents on File Name Relationship [facility] Mildred Kc Spouse Health Care Surrogate Care Teams Blade Boner Relationship Specialty Start Date End Date Lara Torres APRN [address] [place] [address] PCP - General Family Medicine 06/22/24
--- OUTSIDE RECORDS SUMMARY | 2025-06-12 15:22 | XMS_ITS | Encounter Summary ---
Author Organization [facility] Address [address] [place] [address] Care Team Providers Care Substance Abuse Specialist Name Role Phone Lara Torres APRN Primary Care Provider [phone] Reason for Visit * Reason Comments Med Refill Encounter Details Date Type Department Care Team (Late st Contact Info) Description 02/16/2025 Refill [facility] UROLOGY [address] [id number] John Finnegan MD [address] [address] Overactive bladder; Urgency incontinence Social History Tobacco Use Types Packs/Day Years [...] 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 documented in this encounter Plan of Treatment Upcoming Encounters Date Type Department Care Team (Late st Contact Info) Description 09/11/2025 11:30 AM EDT Office Visit [facility] CARDIOLOGY [address] [facility] [address] [place] [phone] José Miguel Kraus MD [address] [facility] [address] [place] [address] 11/08/2025 11:00 AM EST Office Visit [facility] ENDOCRINOLOGY 17[address] [facility] 50 [place] [phone] eGorge Fuller MD 1775 [facility] 50 [place] [address] 12/31/2025 10:45 AM EST Registration [facility] PULMONARY & CRITICAL CARE MEDICINE [address] [place] [phone] 12/31/2025 11:00 AM EST Office Visit [facility]ULMONARY [facility]ITICAL [facility]ARE MEDICINE [address] [place] [address] 12/31/2025 11:30 AM EST Office Visit [facility] PULMONARY & CRITICAL CARE MEDICINE [address] [place] [phone] Gabriella Mills, MEDICAL PRACTICE ADMINISTRATOR [address] [place], [place] [id number] documented as of this encounter Goals Goal Patient Goal Type Associated Problems Recent Progress Patient-Stated? Author Specialty Pharmacy General Goal General No Alem Bai, PharmD Note: LDL Goal < 100 mg/dL Lab Results Component Value Date LDL 273 (H) 09/13/2024 LDL 127 (H) 10/03/2019 LDL 225 (H) 03/13/2019 LDL 166 (H) 08/25/2016 documented as of this encounter Visit Diagnoses Diagnosis Overactive bladder Hypertonicity of bladder Urgency incontinence Urge incontinence documented in this encounter Care Teams Substance Abuse Specialist Relationship Specialty Start Date End Date Lara Torres APRN [address] [place] [address] PCP - General Family Medicine 06/22/24 documented as of this encounter
--- OUTSIDE RECORDS SUMMARY | 2025-06-12 15:22 | XMS_ITS | Encounter Summary ---
Author Organization [facility] Address [address] [place] [address] Care Team Providers Care Laundromat Worker Name Role Phone Lara Torres POWER SYSTEM OPERATOR Primary Care Provider [phone] Encounter Details Date Type Department Care Team (Late st Contact Info) Description 05/07/2025 Results Follow-Up 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 CARDIOLOGY [address] [facility] [address] [place] [address] José Miguel Kraus MD [address] [facility] [address] [place] [address] 11/08/2025 11:00 AM EST Office Visit [facility] ENDOCRINOLOGY [address] [facility] 50 [place] [address] George Fuller MD 1775 [facility] 50 [place] [address] 12/31/2025 10:45 AM EST Registration [facility] PULMONARY & CRITICAL CARE MEDICINE [address] [place] [address] 12/31/2025 11:00 AM EST Office Visit [facility]ICAL [facility]ARE MEDICINE [address] [place] [address] 12/31/2025 11:30 AM EST Office Visit [facility]ULMONARY [facility]ITICAL CARE MEDICINE [address] [place] [address] Gabriella Mills APRN [address] [place] [address] documented as of this encounter Goals Goal Patient Goal Type Associated Problems Recent Progress Patient-Stated? Author Specialty Pharmacy General Goal General No Alem Bai, PharmD Note: LDL Goal < 100 mg/dL Lab Results Component Value Date LDL 273 (H) 09/13/2024 LDL 127 (H) 10/03/2019 LDL 225 (H) 03/13/2019 LDL 166 (H) 08/25/2016 documented as of this encounter Visit Diagnoses Not on filedocumented in this encounter Care Teams Laundromat Worker Relationship Specialty Start Date End Date Lara Torres APRN [address] [place], [place] [phone] PCP - General Family Medicine 06/22/24 documented as of this encounter
--- OUTSIDE RECORDS SUMMARY | 2025-06-12 15:22 | XMS_ITS | Encounter Summary ---
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 CARDIOLOGY 3000 [facility] [address] [place] [phone] José Miguel Kraus MD [address] [facility] [address] [place] [address] 11/08/2025 11:00 AM EST Office Visit [facility] ENDOCRINOLOGY [address] [facility] 50 [place] [phone] George Fuller MD [address] [facility] 50 [place] [address] 12/31/2025 10:[address] [facility] PULMONARY & CRITICAL CARE MEDICINE [address] [place] [phone] 12/31/2025 11:00 AM EST Office Visit [facility] PULMONARY & CRITICAL CARE MEDICINE [address] [facility] [place] [address] 12/31/2025 11:30 AM EST Office Visit [facility] PULMONARY & CRITICAL CARE MEDICINE [address] [place] [phone] Gabriella Mills, SAFETY LAMP KEEPER [address] [place] [address] documented as of this encounter Goals Goal [...] on filedocumented in this encounter Care Teams Floor Associate Relationship Specialty Start Date End Date Lara Torres APRN [address] [place] [address] PCP - General Family Medicine 06/22/24 documented as of this encounter
--- OUTSIDE RECORDS SUMMARY | 2025-06-12 15:22 | XMS_ITS | Encounter Summary ---
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 CARDIOLOGY [address] [facility] [address] [place] [phone] José Miguel Kraus MD [address] [facility] [address] [place] [address] 11/08/2025 11:00 AM EST Office Visit [facility] ENDOCRINOLOGY 1775 [facility] 50 [place] [phone] George Fuller MD 1775 [facility] 50 [place] [address] 12/31/2025 10:[address] [facility] PULMONARY & CRITICAL CARE MEDICINE [address] [place] [phone] 12/31/2025 11:00 AM EST Office Visit [facility] PULMONARY & CRITICAL CARE MEDICINE [address] [facility] [place] [address] 12/31/2025 11:30 AM EST Office Visit [facility] PULMONARY & CRITICAL CARE MEDICINE [address] [place] [phone] Gabriella Mills, ORACLE AGILE PLM CONSULTANT [address] [place] [address] documented as of this encounter Goals Goal [...] on filedocumented in this encounter Care Teams Brake Operator Helper Relationship Specialty Start Date End Date Lara Torres APRN [address] [place] [address] PCP - General Family Medicine 06/22/24 documented as of this encounter
--- OUTSIDE RECORDS SUMMARY | 2025-06-12 15:22 | XMS_ITS | Encounter Summary ---
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 Not on file documented as of this encounter Plan of Treatment Upcoming Encounters Date Type Department Care Team (Late st Contact Info) Description 09/11/2025 11:30 AM EDT Office Visit [facility] CARDIOLOGY [address] [facility] [address] [place] [address] José Miguel Kraus MD [address] [facility] E [facility] 400 [place] [address] 11/08/2025 11:00 AM EST Office Visit [facility] ENDOCRINOLOGY 1775 [facility] 50 [place] [phone] George Fuller MD 1775 [facility] [place] [address] 12/31/2025 10:45 AM EST Registration [facility] PULMONARY & CRITICAL CARE MEDICINE [address] [place] [address] 12/31/2025 11:00 AM EST Office Visit [facility] PULMONARY & CRITICAL CARE MEDICINE [address] [place] [address] 12/31/2025 11:30 AM EST Office Visit [facility] PULMONARY & CRITICAL CARE MEDICINE [address] [place] [address] Gabriella Mills APRN [address] [place] [address] documented as of this encounter Goals Goal [...] on filedocumented in this encounter Care Teams Station Jailer Relationship Specialty Start Date End Date Lara Torres APRN [address] [place] [address] PCP - General Family Medicine 06/22/24 documented as of this encounter
[2025-06-12 15:31] VITALS: BP 125/79; PULSE 74; RESP 18; O2SAT 97; BMI 38.2
--- NOTE | 2025-06-12 15:51 | EXP.PAIN.SOA ---
[facility] Disclaimer: The information contained in this section may have been updated after the patient was seen, as this information can be updated by other users. Medical History Shon's disease History of hypothyroidism History of diverticulosis Hx of osteoarthritis History of fibromyalgia Hx of acute hepatitis Hx of autoimmune disorder History of depression History of anxiety History of posttraumatic stress disorder (PTSD) Right knee meniscal tear Family history of patent foramen ovale Surgical History History of hand surgery History of hysteroscopy Hx of total hysterectomy Hx of colonoscopy History of tenotomy Hx of cataract surgery Social History Smoking Status: Never smoker alcohol intake: current alcohol intake frequency: a few times a month current occupational status: other Travel in the last 8 weeks?: None PM Subjective & Objective Subjective Subjective:: Patient is a pleasant 54-year-old female who presents today for follow-up of her bilateral SI injections on 05/28/2025. Today she rates her pain a 5 out of 10. She does state that she had at least 80% improvement following these injections however feels like they are not working as well. Patient is having more pain in and around primarily her right hip that is worse with prolonged positioning or when she is trying to sleep and lay on that side. Patient does state the pain is interfering with her ability to perform activities of daily living such as cooking and cleaning. Patient denies any new falls or injuries. Patient is prescribed methocarbamol 750 mg 3 times a day from our office and compounded cream. She denies any side effects. She does state that she is not a big fan of taking oral medications so she does not use this on a regular basis. Her Sandeep has been reviewed and is appropriate. Review of Systems: General: No recent weight changes, no fever, no sleep disturbances Respiratory: No cough, no shortness of air, no recurring pulmonary infections Cardiovascular/peripheral vascular: No chest pain, no palpitations, no edema, no shortness of breath Gastrointestinal: No new onset incontinence, normal bowel movements reported Genitourinary: No new onset incontinence Musculoskeletal: Bilateral hip pain Psychiatric: [Normal mood/affect] Neurological: [Denies weakness in extremities], [denies balance issues] Pain at rest (0-10 scale): 5 Objective Objective:: Physical Exam: General: Alert and oriented x3, no acute distress, pleasant and cooperative Lungs: Respirations even and unlabored, symmetrical chest expansion Eyes: PERRL Musculoskeletal: Flexion and extension of lumbar [spine] somewhat guarded secondary to pain, point tenderness along bilateral greater trochanteric bursa's Neurological: Speech clear, no gross sensory deficit Has patient had previous pain injection?: Yes Percent improvement in pain since last injection: 80% Conservative treatment options previously tried: Home exercise plan Length of treatment: Longer than 12 weeks Meds Home Medications and Allergies Home Medications ?Medication ?Instructions ?Recorded ?Confirmed ?Type aspirin 81 mg tablet,delayed 81 mg PO DAILY 08/22/24 06/12/25 History release (Adult Low Dose Aspirin) atorvastatin 80 mg tablet 80 mg PO DAILY 08/22/24 06/12/25 History buspirone 30 mg tablet 30 mg PO BID 08/22/24 06/12/25 History cholecalciferol (vitamin D3) 25 25 mcg PO DAILY 08/22/24 06/12/25 History mcg (1,000 unit) capsule estradiol 1 mg tablet 1 mg PO DAILY 08/22/24 06/12/25 History ezetimibe 10 mg tablet 10 mg PO DAILY 08/22/24 06/12/25 History nitroglycerin 0.4 mg sublingual 0.4 mg sublingual Q5M PRN Chest 08/22/24 06/12/25 History tablet Pain omeprazole 20 mg capsule,delayed 20 mg PO DAILY #90 caps 08/22/24 06/12/25 Rx release oxybutynin chloride 10 mg 10 mg PO DIRECTED 08/22/24 06/12/25 History tablet,extended release 24 hr ropinirole 1 mg tablet 1 mg PO DAILY 08/22/24 06/12/25 History sacrosidase 8,500 unit/mL oral 2 ml PO 6XD #360 mL 08/22/24 06/12/25 Rx solution (Sucraid) thyroid (pork) 60 mg tablet (MANAGER CLIENT SUPPORT 120 mg PO DAILY 08/22/24 06/12/25 History Thyroid) ursodiol 500 mg tablet 500 mg PO DAILY 08/22/24 06/12/25 History methocarbamol 500 mg tablet 500 mg PO BID #28 tabs 02/20/25 06/12/25 Rx albuterol sulfate 90 mcg/actuation 1 inh inhalation QID 02/27/25 06/12/25 History aerosol inhaler cream base no.39 (bulk) (Versapro 0 applic topical . 02/27/25 06/12/25 History Cream Base topical) fluticasone propionate 45 2 puff inhalation BID 02/27/25 06/12/25 History mcg-salmeterol 21 mcg/actuation HFA inhaler (Advair HFA) levocetirizine 5 mg tablet 5 mg PO DAILY 02/27/25 06/12/25 History midodrine 5 mg tablet 5 mg PO BID 02/27/25 06/12/25 History montelukast 10 mg tablet 10 mg PO DAILY 02/27/25 06/12/25 History sertraline 100 mg tablet 100 mg PO DAILY 02/27/25 06/12/25 History methocarbamol 750 mg tablet 750 mg PO TID PRN muscle pain #90 05/02/25 06/12/25 Rx tabs prednisone 20 mg tablet 20 mg PO BID #10 tabs 05/02/25 06/12/25 Rx New Prescriptions to Start Prescriptions: Allergies Allergy/AdvReac Type Severity Reaction Status Date / Time shellfish Allergy Severe Hives Uncoded 02/27/25 10:40 Assessment and Plan *Assessment and plan (1) Trochanteric bursitis of both hips: Status: Acute Category: Medical Code(s): M70.61 - Trochanteric bursitis, right hip; M70.62 - Trochanteric bursitis, left hip Plan Patient is experiencing worsening pain along her bilateral hips with point tenderness more severe along the right side versus the left. I did discuss with the patient that I do believe she would benefit from bilateral greater trochanteric bursa injections. Risk and benefits were discussed with patient and she would like to proceed forward with this plan of care. Patient has tried and failed conservative therapy including oral medication, heat and ice, topicals, at home stretching exercise for longer than 12 weeks that was physician guided. Patient will be scheduled for bilateral greater trochanteric bursa injections under fluoroscopy. I will also reach out to the compound cream pharmacy and increase her concentration. Patient agrees with this plan of care. Patient has been instructed to contact the clinic with any concerns before the next appointment. Dr. Baker has reviewed this note and agrees with this plan of care. This note was dictated using voice recognition software and make contain errors or omissions. All injections are used with Lidocaine, Bupivacaine and dexamethasone. Occasionally urine drug screen is needed to verify patient's compliance with our office pain contract. This is ordered based off specific treatments related to chronic pain with the potential to abuse certain medications.
== END 2025-06-12 23:59 | disposition home or self-care (01) ==
LOC: SC.PAIN 15:18
PROVIDERS: PCP Nurse Practitioner Family; Visit Provider Nurse Practitioner Family
DX: M70.61 Trochanteric bursitis, right hip (principal); M70.62 Trochanteric bursitis, left hip; Z79.899 Other long term (current) drug therapy
CPT/HCPCS: 99212; G0463

== ENCOUNTER 2025-07-23 09:16 | Day surgery (SDC) | payer BC, MEDICARE, SELFPAY ==
[2025-07-23 09:00] VITALS: BP 136/85; PULSE 68; RESP 16; O2SAT 96; BMI 40.2
--- NOTE | 2025-07-23 09:47 | EXP.PAIN.PRO ---
Procedure Date: 07/23/25 Time: 09:30 Anesthesiologist:: Steven Pena CRNA Complications:: None Pre-procedure Diagnosis:: Bilateral trochanteric bursitis Post-procedure Diagnosis:: Same Indications for Procedure:: Patient is a pleasant 54-year-old female comes our clinic today with extreme point tenderness over the bilateral trochanteric bursa. She reports having bilateral trochanteric bursa injections in the past with significant improvement. She reports lateral bilateral hip pain that is constant, dull, sharp, stabbing. She rates her pain 7/10. Procedure Details:: Procedure: Bilateral trochanteric bursa joint injections under fluoroscopy Informed consent was obtained and the risks and benefits of the procedure were explained to the patient.~ The patient was taken to the procedure room and noninvasive monitors were placed including a noninvasive blood pressure cuff and pulse oximeter.~ The patient was placed prone on the procedure table. The area over the posterior hips was cleansed using chlorhexidine as a cleansing solution. Using fluoroscopy guidance the left trochanteric bursa was accessed with ease using a 22-gauge 3 and half inch spinal needle. 0.5 mL of contrast dye was injected to confirm the needle placement. At this time 3 cc of 1% lidocaine +3 cc of 0.25% Marcaine and 5 mg of dexamethasone was injected. The same procedure was carried out over the right trochanteric bursa. The patient tolerated the procedure without difficulty. There were no complications. Plan and Disposition:: Patient was discharged without incident.
[2025-07-23 09:48] VITALS: BP 127/82; PULSE 68; RESP 18; O2SAT 96
[2025-07-23 09:49] VITALS: BP 137/70; PULSE 71; RESP 18; O2SAT 97
[2025-07-23] MEDS: LIDOCAINE 1% 5ML PF VIAL 5 ML (09:50)
[2025-07-23] MEDS: DEXAMETHASONE 10MG/ML 1ML VIAL 10 MG (09:50)
[2025-07-23] MEDS: BUPIVACAINE 0.25% 10ML INJ 25 MG IJ (09:50)
== END 2025-07-23 09:48 | disposition home or self-care (01) ==
PROVIDERS: PCP Nurse Practitioner Family; Visit Provider Nurse Anesthetist, Certified Registered
DX: M70.61 Trochanteric bursitis, right hip (principal); M70.62 Trochanteric bursitis, left hip; F41.9 Anxiety disorder, unspecified; F32.A Depression, unspecified; E03.9 Hypothyroidism, unspecified; F43.10 Post-traumatic stress disorder, unspecified; Z91.013 Allergy to seafood; Z79.899 Other long term (current) drug therapy
CPT/HCPCS: 20610; J0665; J1100; J2003